=== PATIENT | female | born 1935 | race Caucasian/White ===

== ENCOUNTER 2020-04-13 14:43 | Outpatient (REF) | payer MEDICARE, OTHER, SELFPAY ==
--- NOTE | 2020-04-13 14:52 | XR_ITS ---
EXAMINATION: CHEST AND LEFT RIB X-RAY CLINICAL INFORMATION: Chest pain COMPARISON: Previous chest CT most recent October 2019 and chest x-ray July 2017 TECHNIQUE: 2 view chest and 3 views of the left ribs FINDINGS: Chest: The cardiac and mediastinal contours are stable. The lungs are well inflated. The lungs are clear. There is no pleural effusion or pneumothorax. There is a lower thoracic vertebral body compression fracture, probably the T12 vertebral body. This is new in the interval from previous exams. There are degenerative changes of the spine. Left RIBS: No rib fracture or bone lesion is seen. XR/XR chest 2V IMPRESSION: No evidence for acute disease in the chest. No rib fracture seen. T12 vertebral body compression fracture new in the interval from previous exams.
--- NOTE | 2020-04-13 14:52 | XR_ITS ---
EXAMINATION: CHEST AND LEFT RIB X-RAY CLINICAL INFORMATION: Chest pain COMPARISON: Previous chest CT most recent October 2019 and chest x-ray July 2017 TECHNIQUE: 2 view chest and 3 views of the left ribs FINDINGS: Chest: The cardiac and mediastinal contours are stable. The lungs are well inflated. The lungs are clear. There is no pleural effusion or pneumothorax. There is a lower thoracic vertebral body compression fracture, probably the T12 vertebral body. This is new in the interval from previous exams. There are degenerative changes of the spine. Left RIBS: No rib fracture or bone lesion is seen. XR/XR ribs LT min 3V w CXR1V IMPRESSION: No evidence for acute disease in the chest. No rib fracture seen. T12 vertebral body compression fracture new in the interval from previous exams.
== END 2020-04-13 14:44 | disposition home or self-care (01) ==
LOC: HO.HMGCX 14:43
PROVIDERS: PCP Internal Medicine; Visit Provider Nurse Practitioner Family
DX: R07.89 Other chest pain (principal)
CPT/HCPCS: 71045; 71046; 71101

== ENCOUNTER 2020-04-20 10:28 | Outpatient (REF) | payer MEDICARE, OTHER, SELFPAY ==
--- NOTE | 2020-04-20 | MM_ITS ---
EXAMINATION: MM SCREENING DIGITAL BREAST TOMOSYNTHESIS, BILATERAL CLINICAL INFORMATION: Screening. Asymptomatic. The lifetime risk of breast cancer based on the Tyrer-Cuzick Model is 1%. COMPARISON: Mammography: 04/15/2019, 04/09/2018, 02/10/2017 TECHNIQUE: Digital breast tomosynthesis is performed in both the craniocaudal and mediolateral oblique views along with computer-aided detection (CAD). Synthesized 2D images are generated from the tomosynthesis. Additional right MLO view is provided. FINDINGS: There are scattered areas of fibroglandular density (ACR BI-RADS breast composition Category b). There are no significant masses, abnormal calcifications, or other abnormalities. Parenchymal pattern is similar to prior studies. The fine dermal calcifications or artifact noted previously posterior 3:00 left breast are not appreciated on current study. MM/MM tomosynthesis screening BI IMPRESSION: No mammographic evidence of malignancy. ASSESSMENT: BI-RADS 1: Negative RECOMMENDATION: Routine annual mammography screening. This patient's information was entered into a reminder system with a target due date for their next mammogram.
== END 2020-04-20 10:29 | disposition home or self-care (01) ==
LOC: HO.MAMMO 10:28
PROVIDERS: PCP Internal Medicine; Visit Provider Internal Medicine
DX: Z12.31 Encounter for screening mammogram for malignant neoplasm of breast (principal)
CPT/HCPCS: 77063; 77067

== ENCOUNTER 2020-10-18 16:07 | Outpatient (REF) | payer MEDICARE, OTHER, SELFPAY ==
[2020-10-18 17:54] LABS: Erythrocyte Sedimentation Rate 18 MM/HR (0-20)
== END 2020-10-18 16:08 | disposition home or self-care (01) ==
LOC: HO.LAB 16:07
PROVIDERS: PCP Internal Medicine; Visit Provider Podiatrist
DX: M10.071 Idiopathic gout, right ankle and foot (principal)
CPT/HCPCS: 36415; 84550; 85652; 86140

== ENCOUNTER → 2020-11-02 10:34 | Outpatient (BNVA) | payer MEDICARE, OTHER, SELFPAY | PROVIDERS: PCP Internal Medicine; Visit Provider Internal Medicine | DX: T78.40XA Allergy, unspecified, initial encounter (principal); J44.9 Chronic obstructive pulmonary disease, unspecified | CPT/HCPCS: 99212 ==

== ENCOUNTER 2020-11-11 08:07 | Outpatient (REF) | payer MEDICARE, OTHER, SELFPAY ==
[2020-11-11 11:16] LABS: MANUAL DIFF FLAG NO
[2020-11-11 11:22] LABS: Basophils Absolute Auto 0.1 X10*3/uL (0.0-0.2); Basophils Percent Auto 0.6 % (0-2); Eosinophils Absolute Auto 0.4 X10*3/uL (0.0-0.4); Eosinophils Percent Auto 4.5 % (0-4); Hematocrit 35.6 % (37-47); Hemoglobin 11.8 g/dl (12.0-16.0); Imm Gran Abs Auto 0.03 X10*3/uL (0.00-0.03); Imm Gran Pct Auto 0.4 % (0.0-0.4); Lymphocytes Absolute Auto 1.5 X10*3/uL (1.2-4.9); Lymphocytes Percent Auto 17.6 % (20-40); Mean Corpuscular HGB Conc 33.1 g/dl (31.0-35.0); Mean Corpuscular Hemoglobin 31.8 pg (27.0-33.0); Mean Platelet Volume 10.9 fL (9.4-12.3); Monocytes Absolute Auto 0.6 X10*3/uL (0.1-1.2); Monocytes Percent Auto 6.8 % (2-11); Neutrophils Absolute Auto 5.8 X10*3/uL (2.0-8.3); Neutrophils Percent Auto 70.1 % (45-73); Platelet Count 215 X10*3/uL (160-400); Red Blood Count 3.71 X10*6/uL (4.20-5.50); Red Cell Distribution Width 13.8 % (11.0-16.0); White Blood Count 8.2 X10*3/uL (4.8-10.8)
[2020-11-11 11:52] LABS: Alanine Aminotransferase 12 U/L (0-31); Albumin Level 3.8 g/dL (3.5-5.0); Alkaline Phosphatase 83 U/L (39-117); Anion Gap 13 (12-20); Aspartate Amino Transferase 21 U/L (5-31); Bilirubin Total 0.5 mg/dL (0.0-1.0); Blood Urea Nitrogen 20 mg/dL (9-16); Calcium 9.2 mg/dL (8.4-10.2); Carbon Dioxide 26 mmol/L (22-29); Chloride 108 mmol/L (96-108); Cholesterol 197 mg/dL; Estimated Glomerular Filt Rate > 60; Glucose Fasting 101 mg/dL (60-99); HDL Cholesterol 65 mg/dL; LDL Cholesterol Calculated 119 mg/dl; Potassium 4.5 mmol/L (3.3-5.1); Sodium 142 mmol/L (135-145); Total Protein 6.6 g/dL (6.5-8.0); Triglycerides 66 mg/dL
[2020-11-11 12:02] LABS: Vitamin D 25-OH Total 34.8 ng/mL (>30)
== END 2020-11-11 08:08 | disposition home or self-care (01) ==
LOC: HO.HMGCLDS 08:07
PROVIDERS: PCP Internal Medicine; Visit Provider Internal Medicine
DX: J44.9 Chronic obstructive pulmonary disease, unspecified (principal); I25.10 Atherosclerotic heart disease of native coronary artery without angina pectoris; K21.9 Gastro-esophageal reflux disease without esophagitis
CPT/HCPCS: 36415; 80053; 80061; 82306; 84443; 85025

== ENCOUNTER 2020-12-24 16:45 | Outpatient (REF) | payer MEDICARE, OTHER, SELFPAY ==
[2020-12-24 18:08] LABS: Uric Acid 3.3 mg/dL (2.4-5.7)
[2020-12-24 18:30] LABS: Erythrocyte Sedimentation Rate 11 MM/HR (0-20)
== END 2020-12-24 16:46 | disposition home or self-care (01) ==
LOC: HO.LAB 16:45
PROVIDERS: Visit Provider Podiatrist
DX: M10.071 Idiopathic gout, right ankle and foot (principal)
CPT/HCPCS: 36415; 84550; 85652; 86140

== ENCOUNTER → 2021-02-09 11:22 | Outpatient (BNVA) | payer MEDICARE, OTHER, SELFPAY | PROVIDERS: PCP Internal Medicine; Visit Provider Internal Medicine | DX: J44.9 Chronic obstructive pulmonary disease, unspecified (principal); J30.9 Allergic rhinitis, unspecified | CPT/HCPCS: 99212 ==

== ENCOUNTER 2021-04-28 12:38 | Outpatient (REF) | payer MEDICARE, OTHER, SELFPAY ==
--- NOTE | ~2021-04-28 | MM_ITS ---
EXAMINATION: MM SCREENING DIGITAL BREAST TOMOSYNTHESIS, BILATERAL CLINICAL INFORMATION: Screening. Asymptomatic. The lifetime risk of breast cancer to age 85 based on the Tyrer-Cuzick Model is under 1%. COMPARISON: Mammography: 04/20/2020, 04/15/2019, 04/09/2018 TECHNIQUE: Digital breast tomosynthesis is performed in both the craniocaudal and mediolateral oblique views along with computer-aided detection (CAD). Synthesized 2D images are generated from the tomosynthesis. FINDINGS: There are scattered areas of fibroglandular density (ACR BI-RADS breast composition Category b). There are no significant masses, abnormal calcifications, or other abnormalities. Recommend pattern is similar to prior studies. No significant changes. MM/MM tomosynthesis screening BI IMPRESSION: No mammographic evidence of malignancy. ASSESSMENT: BI-RADS 1: Negative RECOMMENDATION: Routine annual mammography screening. This patient's information was entered into a reminder system with a target due date for their next mammogram.
== END 2021-04-28 12:39 | disposition home or self-care (01) ==
LOC: HO.MAMMO 12:38
PROVIDERS: PCP Internal Medicine; Visit Provider Internal Medicine
DX: Z12.31 Encounter for screening mammogram for malignant neoplasm of breast (principal)
CPT/HCPCS: 77063; 77067

== ENCOUNTER 2021-08-09 13:28 | Outpatient (REF) | payer MEDICARE, OTHER, SELFPAY ==
--- NOTE | ~2021-08-09 | XR_ITS ---
EXAMINATION: XR STERNUM CLINICAL INFORMATION: Closed fracture of body of sternum with routine healing COMPARISON: Previous chest CT October 2019 and chest and left rib x-rays April 2020 TECHNIQUE: 2 views of the sternum were obtained. FINDINGS: There is a minimally displaced fracture of the sternum. The distal sternum is displaced anteriorly by 5 mm with respect to the more proximal sternum. New from previous exams. Overlying soft tissues are normal. XR/XR sternum min 2V IMPRESSION: Minimally displaced fracture of the proximal sternum.
== END 2021-08-09 13:29 | disposition home or self-care (01) ==
LOC: HO.HMGCX 13:28
PROVIDERS: Visit Provider Internal Medicine
DX: S22.22XD Fracture of body of sternum, subsequent encounter for fracture with routine healing (principal)
CPT/HCPCS: 71120

== ENCOUNTER → 2021-08-11 11:06 | Outpatient (BNVA) | payer MEDICARE, OTHER, SELFPAY | PROVIDERS: PCP Internal Medicine; Visit Provider Internal Medicine | DX: J44.9 Chronic obstructive pulmonary disease, unspecified (principal); J30.9 Allergic rhinitis, unspecified; S22.20XA Unspecified fracture of sternum, initial encounter for closed fracture | CPT/HCPCS: 99212 ==

== ENCOUNTER 2021-09-28 12:22 | Outpatient (REF) | payer MEDICARE, OTHER, SELFPAY ==
[2021-09-28 13:58] LABS: Anion Gap 13 (12-20); Blood Urea Nitrogen 14 mg/dL (9-16); Calcium 9.7 mg/dL (8.4-10.2); Carbon Dioxide 27 mmol/L (22-29); Chloride 101 mmol/L (96-108); Estimated Glomerular Filt Rate > 60; Glucose Random 95 mg/dL (60-115); Potassium 4.5 mmol/L (3.3-5.1); Sodium 136 mmol/L (135-145)
[2021-09-28 14:23] LABS: Thyroid Stimulating Hormone 2.93 uIU/mL (0.32-4.0)
[2021-09-28 14:28] LABS: Folate > 20.0 ng/mL (> or = 4.0); Vitamin B12 439 pg/mL (200-900)
== END 2021-09-28 12:23 | disposition home or self-care (01) ==
LOC: HO.LAB 12:22
PROVIDERS: PCP Internal Medicine; Visit Provider Psychiatry & Neurology Neurology
DX: G31.84 Mild cognitive impairment of uncertain or unknown etiology (principal)
CPT/HCPCS: 36415; 80048; 82607; 82746; 84443

== ENCOUNTER 2021-10-03 13:38 | Emergency (ER) | payer MEDICARE, OTHER, SELFPAY ==
[2021-10-03 14:19] VITALS: BP 129/64; PULSE 85; RESP 16; TEMP 36.3; O2SAT 96; BMI 23.9
[2021-10-03 14:45] LABS: Basophils Absolute Auto 0.1 X10*3/uL (0.0-0.2); Basophils Percent Auto 0.7 % (0-2); Eosinophils Absolute Auto 0.2 X10*3/uL (0.0-0.4); Eosinophils Percent Auto 2.1 % (0-4); Hematocrit 34.3 % (37.0-47.0); Hemoglobin 11.4 g/dl (12.0-16.0); Imm Gran Abs Auto 0.06 X10*3/uL (0.00-0.03); Imm Gran Pct Auto 0.6 % (0.0-0.4); Lymphocytes Absolute Auto 1.9 X10*3/uL (1.2-4.9); Lymphocytes Percent Auto 17.8 % (20-40); MANUAL DIFF FLAG NO; Mean Corpuscular HGB Conc 33.2 g/dl (31.0-35.0); Mean Corpuscular Hemoglobin 31.4 pg (27.0-33.0); Mean Corpuscular Volume 94.5 fL (80.0-98.0); Mean Platelet Volume 9.9 fL (9.4-12.3); Monocytes Absolute Auto 0.6 X10*3/uL (0.1-1.2); Monocytes Percent Auto 5.5 % (2-11); Neutrophils Absolute Auto 7.8 x10*3/uL (2.0-8.3); Neutrophils Percent Auto 73.3 % (45-73); Platelet Count 221 X10*3/uL (160-400); Red Blood Count 3.63 X10*6/uL (4.20-5.50); Red Cell Distribution Width 13.2 % (11.0-16.0); White Blood Count 10.7 X10*3/uL (4.8-10.8)
[2021-10-03 15:08] LABS: Anion Gap 14 (12-20); Blood Urea Nitrogen 20 mg/dL (9-16); Calcium 9.3 mg/dL (8.4-10.2); Carbon Dioxide 24 mmol/L (22-29); Chloride 104 mmol/L (96-108); Creatinine Clr Calc Pharmacy 44.1; Estimated Glomerular Filt Rate > 60; Glucose Random 154 mg/dL (60-115); Potassium 3.7 mmol/L (3.3-5.1); Sodium 138 mmol/L (135-145)
[2021-10-03 15:09] LABS: Appearance Urine CLEAR; Color Urine YELLOW; Glucose Urine UA NEG (NEG); Leukocyte Esterase Urine 2+ (NEG); Nitrite Urine NEG (NEG); PH 5.5 (5.0-8.0); UACC Culture Trigger YES; Urine Blood 2+ (NEG); Urine Ketones 5 MG/DL (NEG); Urine Protein NEG (NEG-TRACE)
[2021-10-03 15:17] LABS: Bacteria Urine 1+ /LPF; Squamous Epithelial Cell Urine 1+ /LPF
--- NOTE | 2021-10-03 17:09 | ED_ITS ---
HPI - Female Genitourinary General Chief complaint: Urogenital-Female Stated complaint: confusion/UTI Time Seen by Provider: 10/03/21 15:40 History of Present Illness HPI Narrative: Patient is 87 year old female presents today with having pain on urination. Patient from home. Patient had frequency. No abdominal pain. No nausea no vomiting. Family noted patient to be slightly off. There is no coughing or congestion or upper respiratory symptoms. No diaphoresis. Patient ambulates without any difficulties. Otherwise compliant with medication has been on multiple antibiotics for 2 for infection. No recent urinary tract infections. Patient from home. Related Data Home Medications Medication Instructions Recorded Confirmed albuterol sulfate 90 mcg/actuation 2 puff PO Q6H PRN 04/13/20 10/16/20 aerosol inhaler cetirizine 10 mg tablet 10 mg PO DAILY 04/13/20 10/16/20 flu vacc 2020-(65yr ml IM 04/13/20 10/16/20 up)-MF59C(PF) 60 mcg(15 mcgx4)/0.5 mL IM syringe fluticasone propionate 50 1 spray INTRANASAL DAILY 04/13/20 10/16/20 mcg/actuation nasal spray,suspension memantine 10 mg tablet 10 mg PO BID 04/13/20 10/16/20 omeprazole 20 mg capsule,delayed 20 mg PO QAM 04/13/20 10/16/20 release propranolol 10 mg tablet 10 mg PO BID 04/13/20 10/16/20 raloxifene 60 mg tablet 60 mg PO DAILY 04/13/20 10/16/20 sertraline 100 mg tablet 100 mg PO DAILY tab 11/02/20 colchicine 0.6 mg tablet 0.6 mg PO DAILY PRN tab 02/09/21 Previous Rx's Medication Instructions Recorded acetaminophen 500 mg capsule 500 mg PO QID PRN #30 cap 04/13/20 hydroxyzine HCl 25 mg tablet 25 mg PO BID PRN #14 tab 03/04/21 sulfamethoxazole 800 1 tab PO BID 7 Days #14 tab 10/03/21 mg-trimethoprim 160 mg tablet (Bactrim DS) Allergies Allergy/AdvReac Type Severity Reaction Status Date / Time iodine [Iodine] Allergy Mild SWELLING Verified 08/11/21 11:17 WITH CONTRAST DYE IV contrast dye Allergy Severe throat Uncoded 08/11/21 11:17 closed up codeine Allergy Unknown stomach Uncoded 08/11/21 11:17 upset Review of Systems Review of Systems: No fever no chills no diaphoresis Yes all other systems are reviewed and are negative [facility] Past Medical History Attestation statement: The following information was validated with the patient. Medical History Allergic Allergic rhinitis COPD (chronic obstructive pulmonary disease) Sternal fracture Social History Social History Patient Tobacco Use Status: Never used Tobacco Advance Directives: No Advance Directives Information Provided: No Physical Exam Vital Signs: Vital Signs: Last Vital Signs Temp 97.4 F 10/03/21 14:19 Pulse 85 10/03/21 14:19 Resp 16 10/03/21 14:19 BP 129/64 10/03/21 14:19 Pulse Ox 96 10/03/21 14:19 BMI result Body Mass Index 23.9 Appearance: Alert. Oriented X3. No acute distress. Eyes: Pupils equal, round and reactive to light. ENT: Pharynx normal. Neck: Normal inspection. Neck supple. No lymph nodes noted. No crepitus CVS: Normal heart rate and rhythm. Pulses normal. Normal S1 and S2 Respiratory: No respiratory distress. Breath sounds normal. No Wheezing. No rales Abdomen: Soft and nontender. No rigidity. No distention. good BS x4 Skin: Skin warm and dry. Normal skin color. Normal skin turgor. Extremities: No lower extremity edema. Neurovascular intact to all extremities. No Lacerations. No Rash Neuro: Oriented X 3. No motor deficit. No sensory deficit. Moving all ex termities. No slurred speech MDM - Female Genitourinary MDM Narrative Medical decision making narrative: Patient well appearing no acute distress awake alert oriented x3. White count was normal. Urine grossly infected. Will start patient on Bactrim. Close follow-up on an outpatient basis. Bladder scan less than 100 cc no evidence for retention. Lab Data Result diagrams: 10/03/21 14:38 10/03/21 14:38 Labs: Lab Results 10/03/21 10/03/21 10/03/21 Range/Units 14:38 14:38 15:02 WBC 10.7 (4.8-10.8) X10*3/uL RBC 3.63 L (4.20-5.50) X10*6/uL Hgb 11.4 L (12.0-16.0) g/dl Hct 34.3 L (37.0-47.0) % MCV 94.5 (80.0-98.0) fL MCH 31.4 (27.0-33.0) pg MCHC 33.2 (31.0-35.0) g/dl RDW 13.2 (11.0-16.0) % Plt Count 221 (160-400) X10*3/uL MPV 9.9 (9.4-12.3) fL Immature Gran % (Auto) 0.6 H (0.0-0.4) % Neut % (Auto) 73.3 H (45-73) % Lymph % (Auto) 17.8 L (20-40) % Colbert % (Auto) 5.5 (2-11) % Eos % (Auto) 2.1 (0-4) % Baso % (Auto) 0.7 (0-2) % Lymph # (Auto) 1.9 (1.2-4.9) X10*3/uL Colbert # (Auto) 0.6 (0.1-1.2) X10*3/uL Eos # (Auto) 0.2 (0.0-0.4) X10*3/uL Baso # (Auto) 0.1 (0.0-0.2) X10*3/uL Abs Immat Gran (auto) 0.06 H (0.00-0.03) X10*3/uL Absolute Neuts (auto) 7.8 (2.0-8.3) x10*3/uL Absolute Nucleated RBC 0.000 (0.0-0.012) X10*3/uL Nucleated RBC % (auto) 0.0 (0.0-0.2) /100WBC Sodium 138 (135-145) mmol/L Potassium 3.7 (3.3-5.1) mmol/L Chloride 104 (96-108) mmol/L Carbon Dioxide 24 (22-29) mmol/L Anion Gap 14 (12-20) BUN 20 H (9-16) mg/dL Creatinine 0.77 (0.5-1.4) mg/dL Estim Creat Clear Calc 44.1 Estimated GFR > 60 Random Glucose 154 H (60-115) mg/dL Calcium 9.3 (8.4-10.2) mg/dL Urine Color YELLOW Urine Appearance CLEAR Urine pH 5.5 (5.0-8.0) Ur Specific [place] 1.020 (1.005-1.025) Urine Protein NEG (NEG-TRACE) MG/DL Urine Glucose (UA) NEG (NEG) MG/DL Urine Ketones 5 (NEG) MG/DL Urine Blood 2+ H (NEG) Urine Nitrite NEG (NEG) Ur Leukocyte Esterase 2+ H (NEG) Urine RBC 5-9 H (0) /HPF Urine WBC 15-29 H (0-4) /HPF Ur Squamous Epith Cells 1+ /LPF Urine Bacteria 1+ /LPF Discharge Plan Discharge Clinical Impression: Urinary tract infection Patient Disposition: Home, Self-Care Instructions: Urinary Tract Infection in Older Adults (ED) Prescriptions: New sulfamethoxazole-trimethoprim [Bactrim DS] 800-160 mg tablet 1 tab PO BID 7 Days Qty: 14 0RF No Action fluticasone propionate 50 mcg/actuation spray,suspension 1 spray intranasal DAILY 0RF raloxifene 60 mg tablet 60 mg PO DAILY 0RF cetirizine 10 mg tablet 10 mg PO DAILY 0RF propranolol 10 mg tablet 10 mg PO BID 0RF omeprazole 20 mg capsule,delayed release(DR/EC) 20 mg PO QAM 0RF Fluad Quad 2020-21(65y up)(PF) 60 mcg (15 mcg x 4)/0.5 mL syringe IM 0RF albuterol sulfate 90 mcg/actuation HFA aerosol inhaler 2 puff PO Q6H PRN0RF memantine 10 mg tablet 10 mg PO BID 0RF acetaminophen 500 mg capsule 500 mg PO QID PRN (Reason: pain) Qty: 30 0RF sertraline 100 mg tablet 100 mg PO DAILY 0RF hydroxyzine HCl 25 mg tablet 25 mg PO BID PRN (Reason: itching) Qty: 14 0RF colchicine 0.6 mg tablet 0.6 mg PO DAILY PRN0RF Referrals: Latrell Alvarez MD, DO [Primary Care Provider] -
--- NOTE | 2021-10-03 17:14 | PC.NURSE ---
bladder scan completed. plan to dc home. pt is aox answering questions appropriately
== END 2021-10-03 17:38 | disposition home or self-care (01) ==
PROVIDERS: Emergency Provider Emergency Medicine Emergency Medical Services; PCP Internal Medicine
DX: R30.0 Dysuria (principal); N39.0 Urinary tract infection, site not specified; Z79.899 Other long term (current) drug therapy
CPT/HCPCS: 36415; 80048; 81001; 85025; 87086; 87088; 87186; 99283; 99284

== ENCOUNTER 2021-10-19 10:45 | Outpatient (REF) | payer MEDICARE, OTHER, SELFPAY ==
--- NOTE | ~2021-10-19 | CT_ITS ---
EXAMINATION: CT HEAD WITHOUT CONTRAST CLINICAL INFORMATION: Mild cognitive impairment COMPARISON: Previous brain MRI June 2012 TECHNIQUE: Contiguous axial imaging was performed from the skull base to vertex without intravenous administration of contrast. This CT examination was performed using dose optimization techniques as appropriate, variously including the following: *Automated exposure control *Adjustment of mA and/or kV according to patient size (this includes techniques or standardized protocols for targeted exams where dose is matched to indication/reason for exam; i.e. extremities or head) *Use of iterative reconstruction technique DLP: 673 mGy-cm FINDINGS: There is no evidence of an extra-axial collection. There is no evidence of intra-axial or extra-axial hemorrhage. There is a 1 cm calcified or ossified extra-axial lesion adjacent to the right frontal lobe suggestive of a meningioma. This is stable from previous exam. No other mass or mass effect is seen. The ventricles and extra-axial CSF spaces are slightly prominent suggestive of mild generalized atrophy. There is nonspecific periventricular white matter disease. This appears increased from previous brain MRI from 2013. Bony structures are unremarkable. Visualized paranasal sinuses, mastoid air cells and middle ears are clear. CT/CT head/brain wo con IMPRESSION: Generalized atrophy and nonspecific periventricular white matter disease. When matter disease appears increased from 2013 exam. Stable 1 cm mineralized extra-axial lesion adjacent to the right frontal lobe probably representing a meningioma.
== END 2021-10-19 10:46 | disposition home or self-care (01) ==
LOC: HO.CT 10:45
PROVIDERS: PCP Internal Medicine; Visit Provider Psychiatry & Neurology Neurology
DX: G31.84 Mild cognitive impairment of uncertain or unknown etiology (principal)
CPT/HCPCS: 70450

== ENCOUNTER 2021-11-05 12:58 | Outpatient (REF) | payer MEDICARE, OTHER, SELFPAY ==
[2021-11-05 15:33] LABS: MANUAL DIFF FLAG NO
[2021-11-05 15:36] LABS: Appearance Urine CLEAR; Basophils Absolute Auto 0.1 X10*3/uL (0.0-0.2); Basophils Percent Auto 0.7 % (0-2); Color Urine ORANGE; Eosinophils Absolute Auto 0.3 X10*3/uL (0.0-0.4); Eosinophils Percent Auto 2.7 % (0-4); Glucose Urine UA NEG (NEG); Hematocrit 34.3 % (37.0-47.0); Hemoglobin 11.2 g/dl (12.0-16.0); Imm Gran Abs Auto 0.04 X10*3/uL (0.00-0.03); Imm Gran Pct Auto 0.4 % (0.0-0.4); Leukocyte Esterase Urine TRACE (NEG); Lymphocytes Absolute Auto 2.2 X10*3/uL (1.2-4.9); Lymphocytes Percent Auto 21.8 % (20-40); Mean Corpuscular HGB Conc 32.7 g/dl (31.0-35.0); Mean Corpuscular Hemoglobin 32.2 pg (27.0-33.0); Mean Corpuscular Volume 98.6 fL (80.0-98.0); Mean Platelet Volume 11.2 fL (9.4-12.3); Monocytes Absolute Auto 0.7 X10*3/uL (0.1-1.2); Monocytes Percent Auto 6.9 % (2-11); Neutrophils Absolute Auto 6.7 x10*3/uL (2.0-8.3); Neutrophils Percent Auto 67.5 % (45-73); Nitrite Urine POS (NEG); Platelet Count 255 X10*3/uL (160-400); Red Blood Count 3.48 X10*6/uL (4.20-5.50); Red Cell Distribution Width 13.4 % (11.0-16.0); Specific Gravity - Urine 1.015 (1.005-1.025); Urine Blood TRACE (NEG); Urine Ketones NEG (NEG); Urine Protein NEG (NEG-TRACE); White Blood Count 9.9 X10*3/uL (4.8-10.8)
[2021-11-05 15:46] LABS: Alanine Aminotransferase 13 U/L (0-31); Albumin Level 3.8 g/dL (3.5-5.0); Alkaline Phosphatase 69 U/L (39-117); Anion Gap 11 (12-20); Aspartate Amino Transferase 18 U/L (5-31); Bilirubin Total 0.3 mg/dL (0.0-1.0); Blood Urea Nitrogen 20 mg/dL (9-16); C Reactive Protein 0.18 mg/dL (< or = 0.50); Calcium 9.1 mg/dL (8.4-10.2); Carbon Dioxide 26 mmol/L (22-29); Chloride 103 mmol/L (96-108); Estimated Glomerular Filt Rate > 60; Glucose Random 149 mg/dL (60-115); Sodium 136 mmol/L (135-145); Total Protein 6.5 g/dL (6.5-8.0)
[2021-11-05 15:47] LABS: Bacteria Urine TRACE /LPF; Mucus Urine TRACE /LPF; Squamous Epithelial Cell Urine 1+ /LPF
[2021-11-05 16:14] LABS: Erythrocyte Sedimentation Rate 8 MM/HR (0-20)
== END 2021-11-05 12:59 | disposition home or self-care (01) ==
LOC: HO.HMGCLDS 12:58
PROVIDERS: Visit Provider Internal Medicine
DX: K04.7 Periapical abscess without sinus (principal)
CPT/HCPCS: 36415; 80053; 81001; 85025; 85652; 86140

== ENCOUNTER 2021-11-18 12:32 | Outpatient (REF) | payer MEDICARE, OTHER, SELFPAY ==
--- NOTE | ~2021-11-18 | XR_ITS ---
EXAMINATION: XR CHEST CLINICAL INFORMATION: Shortness of breath, asthma. COMPARISON: 04/13/[address] scan of 10/10/2019. TECHNIQUE: 2 views of the chest were obtained. FINDINGS: There is no evidence of acute parenchymal disease, pneumothorax, or pleural effusion. Heart normal size. No evidence of pulmonary edema. There is a stable approximately 50% compression fracture of what appears to be the T12 or L1 vertebral body. This was present on previous chest x-ray of 04/13/2020 but was not seen on CT scan of 10/10/2019. There is calcific tendinitis of the right shoulder. XR/XR chest 2V IMPRESSION: No acute disease.
== END 2021-11-18 12:33 | disposition home or self-care (01) ==
LOC: HO.HMGCX 12:32
PROVIDERS: PCP Internal Medicine; Visit Provider Internal Medicine
DX: J45.30 Mild persistent asthma, uncomplicated (principal)
CPT/HCPCS: 71046

== ENCOUNTER 2021-12-15 14:52 | Outpatient (REF) | payer MEDICARE, OTHER, SELFPAY ==
--- NOTE | 2021-12-15 | PFT_ITS ---
INDICATION: Shortness of breath and asthma. SPIROMETRY: The FEV1 to FVC 81% with an FEV1 of 1.27 L which is 76% predicted, an FVC of 1.57 L which is 70% predicted. No significant response to bronchodilators noted. Maximum voluntary ventilation 48% predicted. LUNG VOLUMES: Total lung capacity 77% predicted. DIFFUSION CAPACITY: DLCO 45% predicted. COMPARISONS: PFTs in 2019. INTERPRETATION: No obstructive ventilatory defect. No significant response to bronchodilators noted. The patient does have a moderate decrease in the maximum voluntary ventilation secondary to likely deconditioning, although cannot rule out neuromuscular conditions. The patient does have a restrictive ventilatory defect, consistent with mild restrictive lung disease. In addition to that, there is a [id number] diffusion impairment, which could be secondary to underlying parenchymal lung disease and/or pulmonary vascular conditions. Should also correct for hemoglobin. When compared to 2019, there is a significant decrease in the FVC. No significant change in the FEV1, significant decrease in the total lung capacity, and a significant decrease in the diffusion capacity. Clinical correlation is warranted. MD MY Gonzales/MODL / [id number]
== END 2021-12-15 14:53 | disposition home or self-care (01) ==
LOC: HO.RESP 14:52
PROVIDERS: PCP Internal Medicine; Visit Provider Internal Medicine
DX: R06.02 Shortness of breath (principal); J45.30 Mild persistent asthma, uncomplicated
CPT/HCPCS: 94060; 94727; 94729

== ENCOUNTER → 2022-02-09 11:05 | Outpatient (BNVA) | payer MEDICARE, OTHER, SELFPAY | PROVIDERS: PCP Internal Medicine; Visit Provider Internal Medicine | DX: J44.9 Chronic obstructive pulmonary disease, unspecified (principal); J30.9 Allergic rhinitis, unspecified; R06.09 Other forms of dyspnea; S22.20XD Unspecified fracture of sternum, subsequent encounter for fracture with routine healing | CPT/HCPCS: 99212 ==

== ENCOUNTER → 2022-07-31 10:19 | Outpatient (BNVA) | payer MEDICARE, OTHER, SELFPAY | PROVIDERS: PCP Internal Medicine; Visit Provider Internal Medicine | DX: J44.9 Chronic obstructive pulmonary disease, unspecified (principal); J30.9 Allergic rhinitis, unspecified; R06.09 Other forms of dyspnea | CPT/HCPCS: 99212 ==

== ENCOUNTER 2022-08-25 14:18 | Outpatient (REF) | payer MEDICARE, OTHER, SELFPAY ==
--- NOTE | ~2022-08-25 | MM_ITS ---
EXAMINATION: MM SCREENING DIGITAL BREAST TOMOSYNTHESIS, BILATERAL CLINICAL INFORMATION: Screening. Asymptomatic. COMPARISON: Mammography: 04/28/2021, 04/20/2020, 04/15/2019, 04/09/2018 TECHNIQUE: Digital breast tomosynthesis is performed in both the craniocaudal and mediolateral oblique views along with computer-aided detection (CAD). Synthesized 2D images are generated from the tomosynthesis. Additional left CC view is provided. FINDINGS: There are scattered areas of fibroglandular density (ACR BI-RADS breast composition Category b). There are no significant masses, abnormal calcifications, or other abnormalities. Small smooth nodular asymmetry central left breast on CC view similar to prior exams. No developing density. No architectural abnormality. The axilla are unremarkable. MM/MM tomosynthesis screening BI IMPRESSION: No mammographic evidence of malignancy. ASSESSMENT: BI-RADS 2: Benign RECOMMENDATION: Routine annual mammography screening. This patient's information was entered into a reminder system with a target due date for their next mammogram.
== END 2022-08-25 14:19 | disposition home or self-care (01) ==
LOC: HO.MAMMO 14:18
PROVIDERS: PCP Internal Medicine; Visit Provider Internal Medicine
DX: Z12.31 Encounter for screening mammogram for malignant neoplasm of breast (principal)
CPT/HCPCS: 77063; 77067

== ENCOUNTER 2022-11-11 07:48 | Outpatient (REF) | payer MEDICARE, OTHER, SELFPAY | END 2022-11-11 07:49 | disposition home or self-care (01) | LOC: HO.LAB 07:48 | PROVIDERS: PCP Internal Medicine; Visit Provider Internal Medicine | DX: G31.84 Mild cognitive impairment of uncertain or unknown etiology (principal); J45.30 Mild persistent asthma, uncomplicated; F33.42 Major depressive disorder, recurrent, in full remission; K21.9 Gastro-esophageal reflux disease without esophagitis; I25.10 Atherosclerotic heart disease of native coronary artery without angina pectoris; L98.9 Disorder of the skin and subcutaneous tissue, unspecified | CPT/HCPCS: 36415; 80061; 84443; 85025 ==

== ENCOUNTER 2023-01-30 10:15 | Outpatient (AMB) | payer MEDICARE, OTHER, SELFPAY ==
[2023-01-30 10:16] VITALS: BP 110/62; PULSE 78; O2SAT 96; BMI 23.9
--- NOTE | 2023-01-30 10:16 | MHC.OFFVIS ---
Intake Vital Signs 01/30/23 10:16 Height 5 ft 3 in Weight 135 lb BMI 23.9 BP 110/62 Blood Pressure Location Lt brachial Position Sitting Pulse 78 Pulse Oximetry (%) 96 Oxygen Delivery Method Room Air Intake Visit Reasons: copd Intake Note: pt is here for follow up and states issue with breathing when walking and needing inhaler lately, and feels very off balance lately. State Assessed Properties Director Required: No Allergies iodine [Iodine] Allergy (Mild, Verified 01/30/23 10:23) SWELLING WITH CONTRAST DYE IV contrast dye Allergy (Severe, Uncoded 01/30/23 10:23) throat closed up codeine Allergy (Unknown, Uncoded 01/30/23 10:23) stomach upset Medication List - Last Reconciled 01/30/23 by Fabian Sanabria MD acetaminophen 500 mg PO QID PRN albuterol sulfate 90 mcg/actuation 2 puffs PO Q6H PRN cetirizine 10 mg PO DAILY colchicine (gout) 0.6 mg PO DAILY PRN flu vac 2020 [id number](PF) 60 mcg (15 mcg x 4)/0.5 mL mL IM fluticasone propion-salmeterol 100-50 mcg/dose (Advair Diskus) 1 inh inhalation Q12H fluticasone propionate 50 mcg/actuation 1 spray intranasal DAILY hydroxyzine HCl 25 mg PO BID PRN memantine 10 mg PO BID omeprazole 20 mg PO QAM propranolol 10 mg PO BID raloxifene 60 mg PO DAILY sertraline 100 mg PO DAILY Do you need a note to return to daycare/school/sports/work: No HPI copd HPI Details THIS IS VERY PLEASANT 87 YEARS OLD FEMALE, COMES FOR 6 MONTHS FOLLOW-UP FOR HER MILD COPD AND ALLERGIC RHINITIS. SHE HAS BEEN VERY STABLE WITHOUT ANY ACUTE INFECTION OR EXACERBATION IN THE LAST 6 MONTHS, MAIN COMPLAINT IS THAT SHE TENDS TO LOSE BALANCE SO HAS TO HOLD ON TO A WALKING STICK. SHE DOES GET SHORT OF BREATH WHEN SHE WALKS AROUND BUT HER O2 SATS HAVE REMAINED IN NORMAL RANGE. NASAL. SYMPTOMS ARE ALSO WELL CONTROLLED [facility] Medical History Dyspnea on exertion Sternal fracture Allergic rhinitis COPD (chronic obstructive pulmonary disease) Allergic Social History Patient Tobacco Use Status: Never used Tobacco Review of Systems Const All systems reviewed & are unremarkable except as noted in HPI and below Eyes Reports no additional complaints ENT Reports nasal congestion and Reports nasal discharge (Mild off and on) Card Denies chest pain, Denies irregular heart rhythm and Denies leg edema Resp Reports as per HPI GI Reports no additional complaints Reports no additional complaints Musc Reports no additional complaints Skin/Breast Reports system reviewed and no additional complaints, except as documented Neuro Reports no additional complaints Psych Reports no additional complaints Physical Exam Vital Signs: Last Vital Signs Pulse 78 01/30/23 10:16 BP 110/62 01/30/23 10:16 Pulse Ox 96 01/30/23 10:16 Oxygen Delivery Method Room Air 01/30/23 10:16 BMI result Body Mass Index 23.9 Const General: healthy appearing, comfortable, no acute distress, alert and awake Orientation/consciousness: patient oriented x3 HEENT Head: Yes normal to inspection General nose exam: No nasal polyps present, No nasal discharge present and Other nasal findings present (Mild nasal congestion) Face and sinus: Yes sinuses nontender Mouth: oropharynx normal Throat: Yes posterior oropharynx normal Eyes General: appearance normal, both eyes and all related structures Neck Neck: Yes normal visual inspection, Yes no lymphadenopathy, Yes trachea midline and Yes no JVD Thyroid: Thyroid normal Chest Chest palpation & inspection: normal inspection of the chest, normal palpation of entire chest wall and no tenderness Resp Other: Percussion note resonant, has good breath sounds on both sides. No audible wheezes, rhonchi or crepitations Cardio Palpation: normal PMI Rate: regular rate Rhythm: regular rhythm Heart sounds: no gallops and no murmurs GI Palpation (GI): Soft to palpation, nontender, No hepatosplenomegaly present and no masses Auscultation: normal bowel sounds Back/Spine/Pelvis Thoracic/Lumbar Spine: thoracic and lumbar spine normal to inspection Skin General skin exam: no rashes or lesions noted Neuro General: patient oriented x3 and no focal motor deficits Cranial nerves: Yes CN's II-XII intact bilaterally Extrem General: Yes normal to inspection, Yes no clubbing, cyanosis or edema and Yes no calf tenderness Psych Speech and movement: Normal speech and movement present Results Reviewed Results Reviewed: WALKED IN THE HALLWAY FOR ABOUT 5 MINUTES. RESTING O2 SAT 97%, AT THE END OF THE WALK 93%. Assessment & Plan Assessment & Plan (1) COPD (chronic obstructive pulmonary disease): Comment: MILD ASTHMA/COPD, MANIFESTED MAINLY BY COUGH AND MILD OCCASIONAL WHEEZING ESPECIALLY IN A.M. HOURS. TX: CONTNUE TO USE ADVAIR 100-50 1 INHALATION UAUALLY ONCE A DAY, AND MAY GO BACK TO B.I.D. IF SYMPTOMS GET ANY WORSE. SCRIPT IS RENEWED ALBUTEROL INHALER 2 PUFFS Q 6 HOURS P.R.N.. Code(s): J44.9 - Chronic obstructive pulmonary disease, unspecified (2) Allergic: Comment: MOSTLY UNDER CONTROL. CONTINUE PRESENT MEDS ( FLONASE 1 SPRAY EACH NOSTRIL DAILY AND CETRAZINE 10 MG DAILY PRN ) Code(s): T78.40XA - Allergy, unspecified, initial encounter (3) Dyspnea on exertion: Comment: PATIENT HAS MILD TO MODERATE DYSPNEA ON EXERTION. THIS SEEMS TO BE DUE TO MILD RESTRICTIVE PULMONARY DISORDER. THERE WAS NO SIGNIFICANT HYPOXEMIA ON WALKING. Tx :ADVISED TO DO DEEP BREATHING EXERCISES 3 TIMES A DAY. SHE DOES HAVE INCENTIVE SPIROMETRY DEVICE AT HOME. Code(s): R06.09 - Other forms of dyspnea Medications: Changed From fluticasone propion-salmeterol 100-50 mcg/dose (Advair Diskus) 1 inh inhalation Q12H J44.9 - Chronic obstructive pulmonary disease, unspecified To fluticasone propion-salmeterol 100-50 mcg/dose (Advair Diskus) 1 inh inhalation Q12H 60 ea 5RF COPD 30 days J44.9 - Chronic obstructive pulmonary disease, unspecified Coding Level of Care Code Est Pt Level 3 (83412) Diagnoses COPD (chronic obstructive pulmonary disease) J44.9 Allergic T78.40XA Dyspnea on exertion R06.09
== END 2023-01-30 10:45 | disposition home or self-care (01) ==
PROVIDERS: PCP Internal Medicine; Visit Provider Internal Medicine
DX: J44.9 Chronic obstructive pulmonary disease, unspecified (principal); T78.40XA Allergy, unspecified, initial encounter; R06.09 Other forms of dyspnea
CPT/HCPCS: 99213

== ENCOUNTER → 2023-01-30 10:15 | Outpatient (BNVA) | payer MEDICARE, OTHER, SELFPAY | PROVIDERS: PCP Internal Medicine; Visit Provider Internal Medicine | DX: J44.9 Chronic obstructive pulmonary disease, unspecified (principal); R06.09 Other forms of dyspnea; T78.40XA Allergy, unspecified, initial encounter | CPT/HCPCS: 99212 ==

== ENCOUNTER 2023-07-31 10:39 | Outpatient (REF) | payer MEDICARE, OTHER, SELFPAY ==
--- NOTE | ~2023-07-31 | XR_ITS ---
EXAMINATION: XR CHEST CLINICAL INFORMATION: Acute bronchitis, chronic obstructive pulmonary disease. COMPARISON: 11/18/2021 chest radiograph, 08/09/2021. Sternum radiograph. TECHNIQUE: 2 views of the chest were obtained. FINDINGS: Previously identified sternal fracture is less conspicuous characteristic of interval healing. Advanced multilevel degenerative changes in the thoracic spine. Bones are diffusely demineralized. Surgical clips in the upper abdomen. Loss of height of several mid and lower thoracic vertebral bodies redemonstrated with particularly notable compression fracture of what is likely T12. There is no gross pneumothorax. Trace left pleural effusion. Cardiac silhouette is enlarged. Increased prominence of bilateral interstitial markings, particularly left [id number] lung greater than right, may represent chronic/scar, although an inflammatory/infectious process could also be considered. Bilateral central bronchiectatic changes. XR/XR chest 2V IMPRESSION: 1. Increased prominence of bilateral interstitial markings, particularly left [id number] lung greater than right, may represent chronic/scar, although an inflammatory/infectious process could also be considered. 2. Bilateral central bronchiectatic changes. 3. Previously identified sternal fracture is less conspicuous characteristic of interval healing.
== END 2023-07-31 10:40 | disposition home or self-care (01) ==
LOC: HO.XRAY 10:39
PROVIDERS: PCP Internal Medicine; Visit Provider Internal Medicine
DX: J44.9 Chronic obstructive pulmonary disease, unspecified (principal); J30.9 Allergic rhinitis, unspecified; R06.09 Other forms of dyspnea
CPT/HCPCS: 71046; 94010; 99212

== ENCOUNTER 2023-07-31 10:39 | Outpatient (AMB) | payer MEDICARE, OTHER, SELFPAY ==
--- NOTE | 2023-07-31 10:49 | A.OFFVIS_ITS ---
Intake Vital Signs 07/31/23 10:50 Height 5 ft 3 in Weight 136 lb BMI 24.1 BP 104/60 Blood Pressure Location Lt brachial Position Sitting Pulse 72 Pulse Source Pulse Oximeter Pulse Oximetry (%) 95 Oxygen Delivery Method Room Air Intake Visit Reasons: copd Intake Note: pt is here for follow up and states she is short of breath more than usual for the past month or so, and had brochititis when she was in [place], and is interested in handicap placard if she qualifies. Geospatial Extractor Analysis Required: No Allergies iodine [Iodine] Allergy (Mild, Verified 01/30/23 10:23) SWELLING WITH CONTRAST DYE IV contrast dye Allergy (Severe, Uncoded 01/30/23 10:23) throat closed up codeine Allergy (Unknown, Uncoded 01/30/23 10:23) stomach upset PFSH Medical History Dyspnea on exertion Sternal fracture Allergic rhinitis COPD (chronic obstructive pulmonary disease) Allergic Social History Patient Tobacco Use Status: Never used Tobacco Physical Exam Vital Signs: Last Vital Signs Pulse 72 07/31/23 10:50 BP 104/60 07/31/23 10:50 Pulse Ox 95 07/31/23 10:50 Oxygen Delivery Method Room Air 07/31/23 10:50 BMI result Body Mass Index 24.1 Office Procedures Spirometry Testing Spirometry Comments: Spirometry done in the office, Dr. Sanabria has the results results scanned to her chart. 72300- Spirometry Results Reviewed Results Reviewed: spirometry : FVC= 1.49 L 66 % FEV1 =1,08 63 % FEF 25-75 = 55 % Assessment & Plan Assessment & Plan (1) COPD (chronic obstructive pulmonary disease): Comment: MILD ASTHMA/COPD, MANIFESTED MAINLY BY COUGH AND MILD OCCASIONAL WHEEZING ESPECIALLY IN A.M. HOURS. Code(s): J44.9 - Chronic obstructive pulmonary disease, unspecified Plan: TX: CONTNUE TO USE ADVAIR 100-50 1 INHALATION UAUALLY ONCE A DAY, AND MAY GO BACK TO B.I.D. IF SYMPTOMS GET ANY WORSE. ALBUTEROL INHALER 2 PUFFS Q 6 HOURS P.R.N.. (2) Allergic rhinitis: Comment: PATIENT HAS SYMPTOMS OF CHRONIC ALLERGIC RHINITIS WHICH ARE MAINLY SEASONAL. Code(s): J30.9 - Allergic rhinitis, unspecified Plan: TX : FLONASE 2 SPRAYS IN EACH NOSTRIL DAILY CETIRIZINE 10 MG P.O. ONCE A DAY P.R.N. (3) Dyspnea on exertion: Comment: PATIENT HAS MILD TO MODERATE DYSPNEA ON EXERTION. THIS SEEMS TO BE DUE TO MILD RESTRICTIVE PULMONARY DISORDER. THERE WAS NO SIGNIFICANT HYPOXEMIA ON WALKING. Code(s): R06.09 - Other forms of dyspnea Plan: Tx : ADVISED TO DO DEEP BREATHING EXERCISES 3 TIMES A DAY. SHE DOES HAVE INCENTIVE SPIROMETRY DEVICE AT HOME. Orders: Orders XR chest 2V Today J30.9 - Allergic rhinitis, unspecified, J44.9 - Chronic obstructive pulmonary disease, unspecified, R06.09 - Other forms of dyspnea AMB Spirometry Testing Today J44.9 - Chronic obstructive pulmonary disease, unspecified Coding Level of Care Code Est Pt Level 3 (20577) Diagnoses COPD (chronic obstructive pulmonary disease) J44.9 Allergic rhinitis J30.9 Dyspnea on exertion R06.09 CPT Codes Spirometry - CPT: 71959- Spirometry ([id number])
[2023-07-31 10:50] VITALS: BP 104/60; PULSE 72; O2SAT 95; BMI 24.1
== END 2023-07-31 11:33 | disposition home or self-care (01) ==
PROVIDERS: PCP Internal Medicine; Visit Provider Internal Medicine
DX: J44.9 Chronic obstructive pulmonary disease, unspecified (principal); J30.9 Allergic rhinitis, unspecified; R06.09 Other forms of dyspnea
CPT/HCPCS: 94010; 99213

== ENCOUNTER 2023-12-04 10:45 | Outpatient (AMB) | payer MEDICARE, OTHER, SELFPAY ==
--- NOTE | 2023-12-04 10:54 | MHC.OFFVIS ---
Vital Signs 12/04/23 10:55 Height 5 ft 3 in Weight 132 lb BMI 23.4 BP 102/64 Blood Pressure Location Lt brachial Position Sitting Pulse 78 Pulse Source Pulse Oximeter Pulse Oximetry (%) 94 Oxygen Delivery Method Room Air Intake Visit Reasons: COPD Intake Note: pt is here for follow up and is feeling great, but did state her breathing is not that great lately Technical Support Professional Required: No Allergies iodine [Iodine] Allergy (Mild, Verified 12/04/23 11:15) SWELLING WITH CONTRAST DYE IV contrast dye Allergy (Severe, Uncoded 12/04/23 11:15) throat closed up codeine Allergy (Unknown, Uncoded 12/04/23 11:15) stomach upset Medication List - Last Reconciled 12/04/23 by Fabian Sanabria MD albuterol sulfate 90 mcg/actuation 2 puffs PO Q6H PRN cetirizine 10 mg PO DAILY colchicine 0.6 mg PO DAILY PRN flu vac 2020 [id number](PF) 60 mcg (15 mcg x 4)/0.5 mL mL IM fluticasone propion-salmeterol 100-50 mcg/dose (Advair Diskus) 1 inh inhalation Q12H 30 days fluticasone propionate 50 mcg/actuation 1 spray intranasal DAILY hydroxyzine HCl 25 mg PO BID PRN memantine 10 mg PO BID omeprazole 20 mg PO QAM propranolol 10 mg PO BID raloxifene 60 mg PO DAILY sertraline 100 mg PO DAILY Do you need a note to return to daycare/school/sports/work: No HPI HPI COPD: Details: AND IS 88 YEARS OLD VERY PLEASANT FEMALE, COMES FOR FOLLOW-UP OF HER COPD. CLAIMS THAT SHE DOES NOT HAVE ANY MAINTENANCE INHALER, AND SINCE THEN SHE IS GETTING MORE SHORT OF BREATH WHEN SHE WALKS FROM THE HOUSE TO THE CAR. OR ESPECIALLY OUTDOORS IF SHE HAS TO WALK UP HILL. SHE HAS IS FROM THE PARKING LOT TO THE OFFICE OVER HERE SHE HAD TO STOP A FEW TIMES. SHE HAS MILD INTERMITTENT COUGH. DENIES ANY ACTIVE WHEEZING. [facility] Medical History Dyspnea on exertion Sternal fracture Allergic rhinitis COPD (chronic obstructive pulmonary disease) Allergic Social History Patient Tobacco Use Status: Never used Tobacco Review of Systems Const All systems reviewed & are unremarkable except as noted in HPI and below Eyes Reports no additional complaints ENT Reports nasal congestion and Reports nasal discharge (Mild off and on) Card Denies chest pain, Denies irregular heart rhythm and Denies leg edema Resp Reports as per HPI GI Reports no additional complaints Reports no additional complaints Musc Reports no additional complaints Skin/Breast Reports system reviewed and no additional complaints, except as documented Neuro Reports no additional complaints Psych Reports no additional complaints Physical Exam Vital Signs: Last Vital Signs Pulse 78 12/04/23 10:55 BP 102/64 12/04/23 10:55 Pulse Ox 94 12/04/23 10:55 Oxygen Delivery Method Room Air 12/04/23 10:55 BMI result Body Mass Index 23.4 Const General: healthy appearing, comfortable, no acute distress, alert and awake Orientation/consciousness: patient oriented x3 HEENT Head: Yes normal to inspection General nose exam: No nasal polyps present, No nasal discharge present and Other nasal findings present (Mild nasal congestion) Face and sinus: Yes sinuses nontender Mouth: oropharynx normal Throat: Yes posterior oropharynx normal Eyes General: appearance normal, both eyes and all related structures Neck Neck: Yes normal visual inspection, Yes no lymphadenopathy, Yes trachea midline and Yes no JVD Thyroid: Thyroid normal Chest Chest palpation & inspection: normal inspection of the chest, normal palpation of entire chest wall and no tenderness Resp Other: Percussion note resonant, has good breath sounds on both sides. No audible wheezes, rhonchi or crepitations Cardio Palpation: normal PMI Rate: regular rate Rhythm: regular rhythm Heart sounds: no gallops and no murmurs GI Palpation (GI): Soft to palpation, nontender, No hepatosplenomegaly present and no masses Auscultation: normal bowel sounds Back/Spine/Pelvis Thoracic/Lumbar Spine: thoracic and lumbar spine normal to inspection Skin General skin exam: no rashes or lesions noted Neuro General: patient oriented x3 and no focal motor deficits Cranial nerves: Yes CN's II-XII intact bilaterally Extrem General: Yes normal to inspection, Yes no clubbing, cyanosis or edema and Yes no calf tenderness Psych Speech and movement: Normal speech and movement present Assessment & Plan Assessment & Plan (1) COPD (chronic obstructive pulmonary disease): Comment: MILD ASTHMA/COPD, MANIFESTED MAINLY BY COUGH AND MILD OCCASIONAL WHEEZING ESPECIALLY IN A.M. HOURS. Code(s): J44.9 - Chronic obstructive pulmonary disease, unspecified Category: Medical Plan: ADVAIR DISKUS 100-51 INHALATION B.I.D. USE IT REGULARLY VENTOLIN HFA 2 PUFFS Q 6 HOURS P.R.N.. (2) Dyspnea on exertion: Comment: PATIENT HAS MILD TO MODERATE DYSPNEA ON EXERTION. THIS SEEMS TO BE DUE TO MILD RESTRICTIVE AND MILD OBSTRUCTIVE PULMONARY DISORDER. THERE WAS NO SIGNIFICANT HYPOXEMIA ON WALKING. Code(s): R06.09 - Other forms of dyspnea Category: Medical Plan: EXPLAINED TO HER THAT SHE DOES HAVE SOME CHRONIC PULMONARY DISEASE, WHEN SHE WALKS UP [place]ILL SHE IS EXPECTED TO HAVE SOME DYSPNEA, SHE NEEDS TO ADJUST HER WALKING SPEED. ADVISED TO DO DEEP BREATHING EXERCISES ABOUT 2 OR 3 TIMES A DAY. (3) Allergic rhinitis: Comment: PATIENT HAS SYMPTOMS OF CHRONIC ALLERGIC RHINITIS WHICH ARE MAINLY SEASONAL. AND DO FLARE UP OFF AND ON. Code(s): J30.9 - Allergic rhinitis, unspecified Category: Medical Plan: USE FLONASE NASAL SPRAY 1 SPRAY IN EACH NOSTRIL B.I.D. P.R.N. Medications: Refilled fluticasone propion-salmeterol 100-50 mcg/dose (Advair Diskus) 1 inh inhalation Q12H 30 days 60 ea 5RF COPD J44.9 - Chronic obstructive pulmonary disease, unspecified Coding Level of Care Code Est Pt Level 3 (95820) Diagnoses COPD (chronic obstructive pulmonary disease) J44.9 Dyspnea on exertion R06.09 Allergic rhinitis J30.9
[2023-12-04 10:55] VITALS: BP 102/64; PULSE 78; O2SAT 94; BMI 23.4
== END 2023-12-04 11:15 | disposition home or self-care (01) ==
PROVIDERS: PCP Internal Medicine; Visit Provider Internal Medicine
DX: J44.9 Chronic obstructive pulmonary disease, unspecified (principal); R06.09 Other forms of dyspnea; J30.9 Allergic rhinitis, unspecified
CPT/HCPCS: 99213

== ENCOUNTER → 2023-12-04 10:45 | Outpatient (BNVA) | payer MEDICARE, OTHER, SELFPAY | PROVIDERS: PCP Internal Medicine; Visit Provider Internal Medicine | DX: J44.9 Chronic obstructive pulmonary disease, unspecified (principal); J30.9 Allergic rhinitis, unspecified; R06.09 Other forms of dyspnea | CPT/HCPCS: 99212 ==

== ENCOUNTER 2024-06-16 11:12 | Outpatient (AMB) | payer MEDICARE, OTHER, SELFPAY ==
[2024-06-16 11:18] VITALS: BP 110/58; PULSE 71; O2SAT 94; BMI 23.8
--- NOTE | 2024-06-16 11:18 | MHC.OFFVIS ---
Vital Signs 06/16/24 11:18 Height 5 ft 3 in Weight 134 lb 7.712 oz BMI 23.8 BP 110/58 L Blood Pressure Location Lt brachial Position Sitting Pulse 71 Pulse Source Pulse Oximeter Pulse Oximetry (%) 94 Oxygen Delivery Method Room Air Intake Visit Reasons: COPD Intake Note: pt is here for follow up and states she does get out of breath Skill Training Program Coordinator Required: No Allergies iodine [Iodine] Allergy (Mild, Verified 06/16/24 11:45) SWELLING WITH CONTRAST DYE IV contrast dye Allergy (Severe, Uncoded 06/16/24 11:45) throat closed up codeine Allergy (Unknown, Uncoded 06/16/24 11:45) stomach upset Medication List - Last Reconciled 06/16/24 by Fabian Sanabria MD albuterol sulfate 90 mcg/actuation 2 puffs PO Q6H PRN albuterol sulfate mg inhalation Q6H cetirizine 10 mg PO DAILY colchicine 0.6 mg PO DAILY PRN flu vac 2020 [id number](PF) 60 mcg (15 mcg x 4)/0.5 mL mL IM fluticasone propion-salmeterol 100-50 mcg/dose (Advair Diskus) 1 inh inhalation Q12H 30 days fluticasone propionate 50 mcg/actuation 1 spray intranasal DAILY hydroxyzine HCl 25 mg PO BID PRN ibuprofen 800 mg PO TID memantine 10 mg PO BID 90 days omeprazole 20 mg PO QAM propranolol 20 mg PO BID 90 days raloxifene 60 mg PO DAILY sertraline 200 mg (2 x 100 mg) PO DAILY 90 days Do you need a note to return to daycare/school/sports/work: No HPI HPI COPD: Details: This 89 years old very pleasant female is here for 6 months follow-up. For her mild COPD She walks slow with a cane usually staying in the house. When she goes outdoors she does have shortness of breath on exertion especially if she has to walk a long distance. However she denies any cough or wheezing. She uses the Advair 100-50 twice a day and albuterol only once in a while. Luckily she has had no respiratory infection. [facility] Medical History Dyspnea on exertion Sternal fracture Allergic rhinitis COPD (chronic obstructive pulmonary disease) Allergic Social History Patient Tobacco Use Status: Never used Tobacco Review of Systems Const All systems reviewed & are unremarkable except as noted in HPI and below Eyes Reports no additional complaints ENT Reports nasal congestion and Reports nasal discharge (Mild off and on) Card Denies chest pain, Denies irregular heart rhythm and Denies leg edema Resp Reports as per HPI GI Reports no additional complaints Reports no additional complaints Musc Reports no additional complaints Skin/Breast Reports system reviewed and no additional complaints, except as documented Neuro Reports no additional complaints Psych Reports no additional complaints Physical Exam Vital Signs: Last Vital Signs Pulse 71 06/16/24 11:18 BP 110/58 L 06/16/24 11:18 Pulse Ox 94 06/16/24 11:18 Oxygen Delivery Method Room Air 06/16/24 11:18 BMI result Body Mass Index 23.8 Const General: healthy appearing, comfortable, no acute distress, alert and awake Orientation/consciousness: patient oriented x3 HEENT Head: Yes normal to inspection General nose exam: No nasal polyps present, No nasal discharge present and Other nasal findings present (Mild nasal congestion) Face and sinus: Yes sinuses nontender Mouth: oropharynx normal Throat: Yes posterior oropharynx normal Eyes General: appearance normal, both eyes and all related structures Neck Neck: Yes normal visual inspection, Yes no lymphadenopathy, Yes trachea midline and Yes no JVD Thyroid: Thyroid normal Chest Chest palpation & inspection: normal inspection of the chest, normal palpation of entire chest wall and no tenderness Resp Other: Percussion note resonant, has good breath sounds on both sides. No audible wheezes, rhonchi or crepitations Cardio Palpation: normal PMI Rate: regular rate Rhythm: regular rhythm Heart sounds: no gallops and no murmurs GI Palpation (GI): Soft to palpation, nontender, No hepatosplenomegaly present and no masses Auscultation: normal bowel sounds Back/Spine/Pelvis Thoracic/Lumbar Spine: thoracic and lumbar spine normal to inspection Skin General skin exam: no rashes or lesions noted Neuro General: patient oriented x3 and no focal motor deficits Cranial nerves: Yes CN's II-XII intact bilaterally Extrem General: Yes normal to inspection, Yes no clubbing, cyanosis or edema and Yes no calf tenderness Psych Speech and movement: Normal speech and movement present Assessment & Plan Assessment & Plan (1) COPD (chronic obstructive pulmonary disease): Comment: MILD ASTHMA/COPD, MANIFESTED MAINLY BY COUGH AND MILD OCCASIONAL WHEEZING ESPECIALLY IN A.M. HOURS. Code(s): J44.9 - Chronic obstructive pulmonary disease, unspecified Category: Medical Plan: Continue Advair 100-50 1 inhalation b.i.d.. Use albuterol HFA 2 puffs Q 6 hours only p.r.n. if any attacks of wheezing (2) Allergic rhinitis: Comment: PATIENT HAS SYMPTOMS OF CHRONIC ALLERGIC RHINITIS WHICH ARE MAINLY SEASONAL. AND DO FLARE UP OFF AND ON. Code(s): J30.9 - Allergic rhinitis, unspecified Category: Medical Plan: OK to takes cetirizine 10 mg once a day p.r.n. and Flonase-51 spray in each nostril daily (3) Dyspnea on exertion: Comment: PATIENT HAS MILD TO MODERATE DYSPNEA ON EXERTION. THIS SEEMS TO BE DUE TO MILD RESTRICTIVE AND MILD OBSTRUCTIVE PULMONARY DISORDER. THERE WAS NO SIGNIFICANT HYPOXEMIA ON WALKING. Code(s): R06.09 - Other forms of dyspnea Category: Medical Plan: Patient is encouraged to do some walking on a daily basis. Also try to do deep breathing exercises on her own a few times every day. Coding Level of Care Code Est Pt Level 3 (79981) Diagnoses COPD (chronic obstructive pulmonary disease) J44.9 Allergic rhinitis J30.9 Dyspnea on exertion R06.09
== END 2024-06-16 11:54 | disposition home or self-care (01) ==
PROVIDERS: PCP Internal Medicine; Visit Provider Internal Medicine
DX: J44.9 Chronic obstructive pulmonary disease, unspecified (principal); J30.9 Allergic rhinitis, unspecified; R06.09 Other forms of dyspnea
CPT/HCPCS: 99213

== ENCOUNTER → 2024-06-16 11:12 | Outpatient (BNVA) | payer MEDICARE, OTHER, SELFPAY | PROVIDERS: PCP Internal Medicine; Visit Provider Internal Medicine | DX: J44.9 Chronic obstructive pulmonary disease, unspecified (principal); J30.9 Allergic rhinitis, unspecified; R06.09 Other forms of dyspnea | CPT/HCPCS: 99212 ==

== ENCOUNTER 2024-07-02 15:56 | Outpatient (AMB) | payer MEDICARE, OTHER, SELFPAY ==
--- NOTE | 2024-07-02 16:04 | MHC.PC.OV ---
Vital Signs 07/02/24 16:15 Height 4 ft 11.25 in Weight 137 lb BMI 27.4 BP 118/60 Blood Pressure Location Lt brachial Pulse 70 Pulse Source Pulse Oximeter Temp 97.1 F Pulse Oximetry (%) 95 Intake Visit Reasons: follow up Intake Note: no other issues Allergies iodine [Iodine] Allergy (Mild, Verified 07/02/24 16:40) SWELLING WITH CONTRAST DYE IV contrast dye Allergy (Severe, Uncoded 07/02/24 16:40) throat closed up codeine Allergy (Unknown, Uncoded 07/02/24 16:40) stomach upset Medication List - Last Reconciled 07/02/24 by Tasha Rosas PA-C albuterol sulfate 90 mcg/actuation 2 puffs PO Q6H PRN albuterol sulfate mg inhalation Q6H aspirin (Adult Aspirin Regimen) 81 mg PO DAILY calcium carbonate 500 mg PO DAILY cephalexin 500 mg PO BID cetirizine 10 mg PO DAILY fluticasone propion-salmeterol 100-50 mcg/dose (Advair Diskus) 1 inh inhalation Q12H 30 days fluticasone propionate 50 mcg/actuation 1 spray intranasal DAILY hydroxyzine HCl 25 mg PO BID PRN ibuprofen 800 mg PO TID memantine 10 mg PO BID 90 days omeprazole 20 mg PO QAM propranolol 20 mg PO BID 90 days raloxifene 60 mg PO DAILY sertraline 200 mg (2 x 100 mg) PO DAILY 90 days PFSH Medical History Elevated TSH History of mammogram (~08/25/22) Mild cognitive impairment Asthma Pulmonary nodule Major depressive disorder Ulnar neuropathy Cervical radiculopathy Pes planus Microscopic hematuria Varicella zoster Alcoholism Coronary artery disease Spinal stenosis Osteoarthritis GERD (gastroesophageal reflux disease) Dyspnea on exertion Sternal fracture Allergic rhinitis COPD (chronic obstructive pulmonary disease) Allergic Social History Patient Tobacco Use Status: Never used Tobacco Physical exam (Primary Care) Vital Signs: Last Vital Signs Temp 97.1 F 07/02/24 16:15 Pulse 70 07/02/24 16:15 BP 118/60 07/02/24 16:15 Pulse Ox 95 07/02/24 16:15 Care Plan Goal for BP management: <130/80 at goal BMI result Body Mass Index 27.4 BMI Assessment/Plan discussion: High BMI High, discussed plan: lifestyle, weight reduction, dietary, physical activity and alcohol moderation Tobacco/Smoking Status: Tobacco use Status Patient Tobacco Use Status Never used Tobacco 07/02/24 16:17 Coding Level of Care Code Est Pt Level 4 (82916) Complex EM visit Add On G2211 Diagnoses Mild cognitive impairment G31.84 Asthma J45.909 Pulmonary nodule R91.1 Major depressive disorder F32.9 Coronary artery disease I25.10 Osteoarthritis M19.90 GERD (gastroesophageal reflux disease) K21.9 Acute gout of right ankle, unspecified cause M10.9 Gout site: ankle Gout etiology: unspecified cause Chronicity: acute Laterality: right COPD (chronic obstructive pulmonary disease) J44.9 Elevated TSH R79.89 Assessment & Plan Assessment & Plan (1) Mild cognitive impairment: Comment: With memory loss Code(s): G31.84 - Mild cognitive impairment of uncertain or unknown etiology Category: Medical Plan: Patient to continue memantine 10 mg p.o. b.i.d.. Condition is chronic and stable continue to monitor. (2) Asthma: Code(s): J45.909 - Unspecified asthma, uncomplicated Category: Medical Plan: Patient has albuterol inhaler, albuterol for her nebulizer, Advair diskus. Condition is chronic and stable continue to monitor. (3) Pulmonary nodule: Code(s): R91.1 - Solitary pulmonary nodule Category: Medical Plan: Condition is chronic and stable continue to monitor. (4) Major depressive disorder: Code(s): F32.9 - Major depressive disorder, single episode, unspecified Category: Medical Plan: Patient to continue sertraline 200 mg daily. Condition is chronic and stable continue to monitor. (5) Coronary artery disease: Code(s): I25.10 - Atherosclerotic heart disease of [place] coronary artery without angina pectoris Category: Medical Plan: Patient to continue baby aspirin 81 mg daily. Condition is chronic and stable continue to monitor. (6) Osteoarthritis: Code(s): M19.90 - Unspecified osteoarthritis, unspecified site Category: Medical Plan: Patient to continue raloxifene 60 mg daily. Condition is chronic and stable. (7) GERD (gastroesophageal reflux disease): Code(s): K21.9 - Gastro-esophageal reflux disease without esophagitis Category: Medical Plan: Patient to continue omeprazole 20 mg daily. Condition is chronic and stable. (8) Gout: Code(s): M10.9 - Gout, unspecified Category: Medical Qualifiers: Gout site: ankle Gout etiology: unspecified cause Chronicity: acute Laterality: right Qualified Code(s): M10.9 - Gout, unspecified Plan: Condition is chronic and stable will continue to monitor. (9) COPD (chronic obstructive pulmonary disease): Comment: MILD ASTHMA/COPD, MANIFESTED MAINLY BY COUGH AND MILD OCCASIONAL WHEEZING ESPECIALLY IN A.M. HOURS. Code(s): J44.9 - Chronic obstructive pulmonary disease, unspecified Category: Medical Plan: Patient has albuterol inhaler, albuterol for her nebulizer, Advair diskus. Condition is chronic and stable continue to monitor. (10) Elevated TSH: Code(s): R79.89 - Other specified abnormal findings of blood chemistry Category: Medical Plan: Patient had an elevated TSH level on 11/11/2022. It does not appear that she had a reflex free T4 and there have been no repeat studies. Will order TSH with reflex T4. Otherwise patient denies any symptoms at this time. Will continue to monitor in next lab Plan Plan Our management will proceed with repeat thyroid function testing due to prior elevated levels. Continuation with current asthma and COPD treatments, including albuterol and Advair, is advised, ensuring effective symptom control. Attention to coronary artery health is sustained with aspirin therapy. Her regimen for GERD with omeprazole will be adhered to, given its success in controlling symptoms. Current therapies appear to be maintaining stable health for her osteoarthritis, spinal stenosis, and gout, which will be monitored for flare-ups or increased discomfort. Quality of life and functional independence will be emphasized in our ongoing care plan, with substantial patient involvement and shared decision-making observed. Orders: Orders C Reactive Protein Today Z00.00 - Encounter for general adult medical examination without abnormal findings Lipid Panel Today Z00.00 - Encounter for general adult medical examination without abnormal findings Vitamin D 25-OH Total Today Z00.00 - Encounter for general adult medical examination without abnormal findings Vitamin B1 Today Z00.00 - Encounter for general adult medical examination without abnormal findings Complete Blood Count Auto Diff Today Z00.00 - Encounter for general adult medical examination without abnormal findings Comprehensive Lost[place]. Panel Fast Today Z00.00 - Encounter for general adult medical examination without abnormal findings Hemoglobin A1c Today Z00.00 - Encounter for general adult medical examination without abnormal findings Magnesium Today Z00.00 - Encounter for general adult medical examination without abnormal findings Liver Panel Today Z00.00 - Encounter for general adult medical examination without abnormal findings TSH reflex Free T4 Today Z00.00 - Encounter for general adult medical examination without abnormal findings Vitamin B12 and Folate Today Z00.00 - Encounter for general adult medical examination without abnormal findings Patient Instructions: Patient Instructions - Continue using prescribed inhalers and nebulizer for asthma and COPD. - Take all current medications as directed, including baby aspirin and omeprazole. - Undergo fasting for 12 hours prior to blood tests to ensure accurate results. - Schedule a follow-up appointment in six months, earlier if blood work shows abnormalities. - Maintain regular activities and safety precautions at home, reporting any new or worsening symptoms. - Contact the office with any questions or concerns about medications or symptoms. Scribe Plan - Not visible on output: History of Present Illness 89-year-old female with a past medical history of mild cognitive impairment with memory loss, asthma, COPD, history of a pulmonary nodule, major depressive disorder, coronary artery disease, osteoarthritis, spinal stenosis, GERD, chronic dyspnea on exertion due to mild restrictive and mild obstructive pulmonary disease, history of gout who is presenting to the primary care clinic today for follow-up evaluation for her chronic medical conditions. Patient would like a plaque signed for [employer] parking which will be signed today. Patient reports she lives at home alone. She is able to perform all her ADLs. She is able to cook, clean and do her own lawn laundry. The elevator is down where she lives therefore she has had to walk up 4 flights of stairs. She reports this happens often. She reports she normally goes to buddhism. Patient denies any recent falls, worsening memory impairment. She reports that she has a daughter who lives in [place] and she will go down to reside with her for 2 months and then she comes back to [place]. Her son lives in [place]. Patient is still able to drive and able to hear and see at nighttime without any difficulties. She is taking all her medications as prescribed. She denies any acute complaints at this time. Social History - Lives alone on the fourth floor of an old-style apartment building - Attends buddhism regularly, engaging in social and spiritual activities weekly - Has two children, one residing in [place] and the other nearby in [facility] - Describes herself as independent in daily activities such as cooking and cleaning - Prefers not to drive at night, due to comfort and safety concerns Review of Systems - General: Denies recent falls. - Cardiovascular: Denies chest pain. - Respiratory: Reports shortness of breath when walking. - Gastrointestinal: Denies black or bloody stools; states bowel movements are regular. - Genitourinary: Reports normal urination. - Neurological: Reports mild memory loss but manages daily activities. Physical Exam Appearance: Alert. Oriented X3. No acute distress. Head: Normal external exam. Normocephalic. Atraumatic. Eyes: Pupils are equal, round, and reactive to light. Extraocular movements intact. Conjunctiva and sclera normal. Eyelids normal. Ears: External auditory canal normal. Tympanic membranes normal. Throat: Pharynx normal. Uvula midline. Moist mucous membranes. Neck: Normal inspection. Neck supple. Full range of motion. No adenopathy. Thyroid Normal. No meningeal signs. No neck mass noted. Cardiovascular: Normal heart rate and rhythm. Heart sound normal. No murmurs noted. Pulses normal throughout. Respiratory: No respiratory distress. Painless inspiration. Breath sounds normal. No wheezes/rales/rhonchi noted. Chest nontender. No accessory muscle usage noted or decreased air movement noted. Abdomen: Soft and nontender. Bowel sounds normal in all 4 quadrants. No distention noted. No organomegaly noted. No visible injury noted. Back: No costovertebral angle tenderness. Full range of motion noted. Skin: Skin warm and dry. Normal skin color. Normal skin turgor. No rashes/lesions/lacerations noted. Extremities: No lower extremity edema. Extremities exhibit normal range of motion. Extremities nontender. Slight swelling noted in one leg, possibly from walking. Neuro: Oriented X 3. No motor deficit. No sensory deficit. Reflexes normal. Results - Labs: Prior labs from November 2022 indicated elevated thyroid levels. Repeat lab work including CBC, CMP, CRP, Hemoglobin, Magnesium, Liver Function Tests, Lipid Panel has been ordered. Plan Our management will proceed with repeat thyroid function testing due to prior elevated levels. Continuation with current asthma and COPD treatments, including albuterol and Advair, is advised, ensuring effective symptom control. Attention to coronary artery health is sustained with aspirin therapy. Her regimen for GERD with omeprazole will be adhered to, given its success in controlling symptoms. Current therapies appear to be maintaining stable health for her osteoarthritis, spinal stenosis, and gout, which will be monitored for flare-ups or increased discomfort. Quality of life and functional independence will be emphasized in our ongoing care plan, with substantial patient involvement and shared decision-making observed. Patient was informed and verbally consented to the use of an ambient scribe for clinic note documentation during this visit. Discussion Notes I discussed with the patient the importance of repeating her thyroid function test to confirm prior elevated readings. We reviewed her current medication regimen and affirmed its efficacy, noting the absence of adverse effects while achieving therapeutic targets. I highlighted the necessity for ongoing monitoring of her respiratory status due to both asthma and COPD, reiterating the use of daily inhalers to manage symptoms effectively. We discussed the management of her depression, which appears controlled with sertraline, with plans to maintain this treatment given her positive response. We talked about the follow-up plan, which includes a comprehensive blood test and another appointment in six months unless results prompt an earlier consultation. The patient was agreeable to the outlined plan, expressing understanding and consent. Patient Instructions - Continue using prescribed inhalers and nebulizer for asthma and COPD. - Take all current medications as directed, including baby aspirin and omeprazole. - Undergo fasting for 12 hours prior to blood tests to ensure accurate results. - Schedule a follow-up appointment in six months, earlier if blood work shows abnormalities. - Maintain regular activities and safety precautions at home, reporting any new or worsening symptoms. - Contact the office with any questions or concerns about medications or symptoms.
[2024-07-02 16:15] VITALS: BP 118/60; PULSE 70; TEMP 36.2; O2SAT 95; BMI 27.4
--- OUTSIDE RECORDS SUMMARY | 2024-07-02 19:29 | XMS_ITS | Patient Health Record ---
Author Organization Jone Crowell MD Address [address] [place], [place] [id number] Care Team Providers Care Table Hand Name Role Phone Latrell Alvarez DO Primary Care Provider Unavail able Jone Crowell Unavailable [phone] Reason For Referral No Information Plan Of Treatment No Information Insurance Providers Payer Name Payer Address Payer Phone Subscriber Number Group Number Insured Name Patient Relationship to Insured Coverage Start Date Coverage End Date [employer] [address] [place] [address] [id number] Rosetta Khan Self - patient is the insured [address] [place] [phone] [id number] Rosetta Khan Self - patient is the insured
--- OUTSIDE RECORDS SUMMARY | 2024-07-02 19:29 | XMS_ITS ---
Author Organization [facility] Address [address] [place] [id number] Care Team Providers Care Seater Assembler Name Role Phone Antonio NOE, Latrell Primary Care Provider Unavail shahab Akil Sandra Unavailable [phone] Encounters Encounter Location Date Provider Diagnosis [address] [address] 04/16/2023 Sandra Barnard Plan Of Treatment Next Appt Details Provider Name:Sandra Rubens Akil , 07/21/2024 01:30:00 PM, [address] [place] [address], [phone], Provider Name:Sandra Rubens Akil , 08/04/2024 03:45:00 PM, [address] [place] [address], [phone], Progress Notes * Rosetta ZHANGDOB:1935 (89 yo F)Acc No.[id number]:04/16/2023 Progress Note Patient:?Rosetta ZHANG Provider:?Sandra Barnard DPM :1935???Age:87 Y???Sex:Female D ate:04/16/2023 Address:[address] [place] [address] , [place] [address], [phone] Pcp:Latrell Alvarez MD Subjective: * Chief Complaints: * ??? * Medical History:? Objective: * Vitals:? Assessment: Plan: * Treatment: * Images: * The named appointment provid er may or may not be the originator of this progress note, and it is not deemed complete until electronically signed by the appointment provider. Sign off status: Pending * Provider:Bertha Barnard DPM Date:?2022 Generated for Lars tamayo/Rosi/Camilla on:?07/02/2024 07:28 PM EST
--- OUTSIDE RECORDS SUMMARY | 2024-07-02 19:29 | XMS_ITS ---
Author Organization Latrell Alvarez DO, [place] Address [address] [place], [place] [id number] Care Team Providers Care Electric Arc Welder Name Role Phone Latrell Alvarez Primary Care Provider REASON FOR VISIT 6 month f/u Encounters Encounter Location Date Provider Diagnosis Latrell Alvarez DO, FACP [address] [place] [phone] 03/25/2024 Latrell Alvarez PLAN OF TREATMENT No Information
--- OUTSIDE RECORDS SUMMARY | 2024-07-02 19:29 | XMS_ITS | Patient Health Record ---
[facility] Address [address] [place] [address] Care Team Providers Care Gas Tester Name Role Phone Latrell Alvarez MD Primary Care Provider Unavail able Black, Sandra Unavailable [phone] Allergies Allergen (clinical drug ingredient) Drug/Non Drug Allergy documented on EMR Reaction Allergy Type Onset Date Status Codeine Phosphate stomach upset Drug Allergy Active povidone-iodine Povidone Iodine ivp dye Drug Allergy Active Reason For Referral No Information Medications Medication SIG (Take, Route, Frequency, Duration) Notes Start Date End Date Status Aspirin EC Active Evista 60 MG 1 tablet Orally Once a day Active Ranitidine HCl 150 MG Orally Twice a day Active Gabapentin Active Oscal 500/200 D-3 Ac tive Colchicine 0.6 MG as directed Orally Active Ammonium Lactate 12 % 1 APPLICATION TO A FFECTED AREA EXTERNALLY TO FEET TWICE A DAY 30 DAYS for 30 Activ e Prednisone Active Keflex 500 MG 1 capsule Orally viola ry 12 hrs for 10 day(s) 10/14/2018 Not-Taking Propranolol-HCTZ 10 1 tablet Orally Twic e a day Active Lysine Not-Taking Sertraline HCl 100 MG 1 tablet Orally Once a day Active Vitamin C 250 MG Orally Not -Taking Medrol jasiel 4mg as directed orally a s directed for 6 days 10/14/2018 Active Medrol 4 MG as directed Orally a s directed for 6 days 12/24/2020 Active Immunizations Vaccine Route Administration Date Status Comme nts COVID-19 Moderna Vaccine Unknown 06/19/2020 Administered Second Dose: 07/19/2020 Social History Tobacco Use: Social History Observation Description Date Details (start date - stop date) Never Smoker NA - NA Tobacco Use/Smoking Question Answer Notes Are you a: nonsmoker Additional Findings: Tobacco Non-User Aggressive non-smoker Alcohol Screen Question Answer Notes Did you have a drink containing alcohol in the p ast year? No Points 0 Interpretation Negative Tobacco use other than smoking: Question Answer Notes Are you an other tobacco user? No Problems Problem Type SNOMED Code ICD Code Onset Dates Problem Status W/U Status Risk Notes Problem Localized, primary osteoarthritis of the ankle and/or foot (696023872) Primary osteoarthritis, right ankle and foot (M19.071) Active confirmed Problem Acquired hallux valgus (97251799) Hallux valgus (acquired), right foot (M20.11) Active confirmed Problem Acquired hallux valgus (98732462) Hallux valgus (acquired), left foot (M20.12) Active confirmed Response to treatment - Improvement Problem Acquired hallux valgus (42090297) Hallux valgus (acquired), right foot (M20.11) Active confirmed Problem Acquired hammer toe of right foot (312944499218816 5) Other hammer toe(s) (acquired), right foot (M20.41) Active confirmed Problem Acquired hammer toe of left foot (638840226945421 3) Other hammer toe(s) (acquired), left foot (M20.42) Active confirmed Problem Primary gout (64400689) Idiopathic gout, 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) Active confirmed Problem Primary gout (32689612) Idiopathic gout, left ankle and foot (M10.072) Active confirmed Problem 654389070 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) Active confirmed Problem Localized, primary osteoarthritis of the ankle and/or foot (977610477) Osteoarthritis of left ankle and foot (M19.072) Active confirmed Problem Acquired deformity of right foot (272808206146019 00) PlantarFlexion of metatarsal of right foot (M21.6X1) Active confirmed Problem Acquired deformity of left foot (437907760437410 04) PlantarFlexion of metatarsal of left foot (M21.6X2) Active confirmed Vital Signs Height 5 ft 2 in in 01/21/2024 Weight 135 lbs 01/21/2024 BMI 24.69 kg/m2 01/21/2024 Procedures Procedure Date Ordered Date Performed Result Body Sit e 58386-IMFRQTG NAIL, 6 OR MORE 07/23/2023 N/A 28080-QGQKGQH NAIL, 6 OR MORE 01/21/2024 N/A Encounters Encounter Location Date Provider Diagnosis [facility] [address] 07/23/2023 Sandra Black Xerosis cutis L85.3 ; Hallux valgus (acquired), left foot M20.12 ; Tinea unguium B35.1 ; Pain in left toe(s) M79.675 ; Pain in right toe(s) M79.674 ; Bursitis of left foot M77.52 ; Hallux valgus, right M20.11 and Bursitis of right foot M77.[address] [facility] [address] 01/21/2024 Sandra Black Hallux valgus (acquired), left foot M20.12 ; Tinea unguium B35.1 ; Pain in left toe(s) M79.675 ; Pain in right toe(s) M79.674 ; Bursitis of left foot M77.52 ; Hallux valgus, right M20.11 and Bursitis of right foot M77.51 Assessments Encounter Date Diagnosis (ICD Code) Assessment Notes Treatment Notes Treatment Clinical Notes Section Notes 07/23/2023 Xerosis cutis (ICD-10 - L85.3) Response to treatment - Improvement 07/23/2023 Hallux valgus (acquired), left foot (ICD-10 - M20.12) 01/21/2024 Tinea unguium (ICD-10 - B35.1) 01/21/2024 Hallux valgus (acquired), left foot (ICD-10 - M20.12) Response to treatment - Improvement 01/21/2024 Pain in left toe(s) (ICD-10 - M79.675) 07/23/2023 Tinea unguium (ICD-10 - B35.1) 07/23/2023 Pain in left toe(s) (ICD-10 - M79.675) 01/21/2024 Pain in right toe(s) (ICD-10 - M79.674) 01/21/2024 Bursitis of left foot (ICD-10 - M77.52) 07/23/2023 Pain in right toe(s) (ICD-10 - M79.674) 07/23/2023 Bursitis of left foot (ICD-10 - M77.52) 01/21/2024 Hallux valgus, right (ICD-10 - M20.11) Response to treatment - Improvement 01/21/2024 Bursitis of right foot (ICD-10 - M77.51) 07/23/2023 Hallux valgus, right (ICD-10 - M20.11) 07/23/2023 Bursitis of right foot (ICD-10 - M77.51) Plan Of Treatment Pending Test Test Name Order Date *Uric Acid, Serum 10/14/2018 *Uric Acid, Serum 10/18/2020 *Uric Acid, Serum 12/24/2020 *CBC With Differential/Platelet 10/15/19 19 *Sedimentation Rate-Westergren 9 *Sedimentation Rate-Westergren 1 *Sedimentation Rate-Westergren 1 C-Reactive Protein, Quant 12/24/2020 83337-JSJUSDV NAIL, 6 OR MORE 01/13/2021 11944-PHDTYFS NAIL, 6 OR MORE 08/17/2022 62326-VIBIYEN NAIL, 6 OR MORE 11/02/2022 50900-NZRDQYZ NAIL, 6 OR MORE 07/23/2023 16242-JEOQXNC NAIL, 6 OR MORE 01/21/2024 11572-QDQFBNQ NAIL, 6 OR MORE 09/22/2013 12206-NQNCNOL NAIL, 6 OR MORE 02/13/2014 74507-Suhuofho Plate 02/13/2014 40562-Qeltazsj Plate 09/22/2013 29314-Mfqkmnkg Plate Each Additional 19422-Googgxtm Plate Each Additional 02/2014 76047, L2475-ZDTWV/INJECT, JOINT/BURSA 0 05/16/2018 CRP 10/18/2020 Next Appt Details Provider Name:Sandra Barnard , 07/21/2024 01:30:00 PM, [address] [place] [address], [phone], Provider Name:Sandra Barnard , 08/04/2024 03:45:00 PM, [address] [place] [address], [phone], Insurance Providers Payer Name Payer Address Payer Phone Subscriber Number Group Number Insured Name Patient Relationship to Insured Coverage Start Date Coverage End Date [employer] [address] [place] [address] [id number] Rosetta Khna Self - patient is the insured [facility] [address] [place] [address] [phone] [id number] Rosetta Khan Self - patient is the insured Medical (General) History Medical History History ICD Code Neuropathy Osteoporosis Arthritis Depression Back,Hip,and Knee pain Gastroesophageal reflux disease (GERD) Coronary artery disease osteoarthritis Spinal stenosis dizziness Surgical History Surgery Date(Month/Year) knee 2004 hand 2005 cholecystectomy appendectomy cataract-lens implants L4-5 decompression
--- OUTSIDE RECORDS SUMMARY | 2024-07-02 19:29 | XMS_ITS ---
Author Organization [facility] C are Address [address] [place] [address] [place] [address] Care Team Providers Care Log Feeder Name Role Phone none, none Primary Care Provider Nora Morse Unavailable [phone] VON KUMAR Unavailable [phone] REASON FOR VISIT Imaging Order SOCIAL HISTORY Sex Assigned At : Social History Observation Description Sex Assigned At Female Encounters Encounter Location Date Provider Diagnosis [facility] [address] [place] [address] [place] [address] 05/22/2023 VON KUMAR Chesty cough R05.8 ; COPD, 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 [place] [address] Subjective: * Chief Complaints: * ?Imaging Order * Medical History:?? * Surgical History:?? * Hospitalization/Major Diagno stic Procedure:?? * Medications:?? Objective: Assessment: * Assessment: 1.??Chesty cough - R05.8??2. ??COPD, mild - J44.9??3.??Abnormal chest xray - R93.89?? Plan: * Treatment: 2.??COPD, mild?Imaging: CT Scan : Chest without contrast (Ordered for 05/22/2023)* 3.??Abnormal chest xray?Imaging: CT Scan : Chest without contrast (Ordered for 05/22/2023)* * Procedure Codes:?? * true * Date:??
--- OUTSIDE RECORDS SUMMARY | 2024-07-02 19:29 | XMS_ITS ---
Author Organization [facility] Address [address] [place] [address] Care Team Providers Care Licensed Weigher Name Role Phone Antonio NOE, Latrell Primary Care Provider Unavail able Black, Sandra Unavailable [phone] Allergies Allergen (clinical drug ingredient) Drug/Non Drug Allergy documented on EMR Reaction Allergy Type Onset Date Status Codeine Phosphate stomach upset Drug Allergy Active povidone-iodine Povidone Iodine ivp dye Drug Allergy Active REASON FOR VISIT Painful Nail(s) aggrevated by shoes and causing difficulty standing/walking., Foot pain Medications Medication SIG (Take, Route, Frequency, Duration) Notes Start Date End Date Status Ammonium Lactate 12 % 1 APPLICATION TO A FFECTED AREA EXTERNALLY TO FEET TWICE A DAY 30 DAYS for 30 Activ e Keflex 500 MG 1 capsule Orally viola ry 12 hrs for 10 day(s) 10/14/2018 Not-Taking Lysine Not-Taking Vitamin C 250 MG Orally Not -Taking Medrol 4 MG as directed Orally a s directed for 6 days 12/24/2020 Active Aspirin EC Active Ranitidine HCl 150 MG Orally Twice a day Active Gabapentin Active Oscal 500/200 D-3 Ac tive Medrol jasiel 4mg as directed orally a s directed for 6 days 10/14/2018 Active Evista 60 MG 1 tablet Orally Once a day Active Colchicine 0.6 MG as directed Orally Active Prednisone Active Propranolol-HCTZ 10 1 tablet Orally Twic e a day Active Sertraline HCl 100 MG 1 tablet Orally Once a day Active Social History Tobacco Use: Social History Observation Description Date Details (start date - stop date) Never Smoker NA - NA Tobacco Use/Smoking Question Answer Notes Are you a: nonsmoker Additional Findings: Tobacco Non-User Aggressive non-smoker Tobacco use other than smoking: Question Answer Notes Are you an other tobacco user? No Vital Signs Height 5 ft 2 in in 01/21/2024 Weight 135 lbs 01/21/2024 BMI 24.69 kg/m2 01/21/2024 Procedures Procedure Date Ordered Date Performed Result Body Sit e 17795-ELIPICZ NAIL, 6 OR MORE 01/21/2024 N/A Encounters Encounter Location Date Provider Diagnosis [facility] [address] [address] 01/21/2024 Sandra Barnard Hallux valgus (acquired), left foot M20.12 ; Tinea unguium B35.1 ; Pain in left toe(s) M79.675 ; Pain in right toe(s) M79.674 ; Bursitis of left foot M77.52 ; Hallux valgus, right M20.11 and Bursitis of right foot M77.51 Assessments Encounter Date Diagnosis (ICD Code) Assessment Notes Treatment Notes Treatment Clinical Notes Section Notes 01/21/2024 Hallux valgus (acquired), left foot (ICD-10 - M20.12) Response to treatment - Improvement 01/21/2024 Tinea unguium (ICD-10 - B35.1) 01/21/2024 Pain in left toe(s) (ICD-10 - M79.675) 01/21/2024 Pain in right toe(s) (ICD-10 - M79.674) 01/21/2024 Bursitis of left foot (ICD-10 - M77.52) 01/21/2024 Hallux valgus, right (ICD-10 - M20.11) Response to treatment - Improvement 01/21/2024 Bursitis of right foot (ICD-10 - M77.51) Plan Of Treatment Pending Test Test Name Order Date 59650-RTYLDJB NAIL, 6 OR MORE 01/21/2024 Next Appt Details Follow Up: prn, Reason: Provider Name:Sandra A Akil , 07/21/2024 01:30:00 PM, [address] [place] [address], [phone], Provider Name:Sandra A Akil , 08/04/2024 03:45:00 PM, [address] [place] [address], [phone], Procedure Notes * Category Sub-Category Detail Notes Debride Nail 6-10 Nail debridement Performance o f this nail treatment by a nonprofessional would put this patients foot and overall health at risk. Therefore, nail debridement was performed extensively to reduce/remove overall nail length, girth, thickness, subungual debris, and necrotic tissue, by manual and/or electrical means through the use of a nail nipper and/or dremel-type regrinder operator, to a more viable healthy nail plate or bed tissue 6-10. Silver nitrate used for any petechial bleeding as necessary. Definitive antifungal treatment options have been reviewed and discussed with the patient. The patient chooses, no pharmaceutical tx - [address] Progress Notes * Rosetta ZHANGDOB:1935 (89 yo F)Acc No.[id number]:01/21/2024 Progress Note Patient:?Rosetta ZHANG Provider:?Sandra Barnard DPM :1935???Age:88 Y???Sex:Female D ate:01/21/2024 Address:[address] [place] [address] , [address] Pcp:Latrell Alvarez MD Subjective: * Chief Complaints: * ???Painful Nail(s) aggrevate d by shoes and causing difficulty standing/walking.Foot pain * HPI: ???Painful Nails:?Pt States Last PCP Visit:?Date:?11/21/2023 ???Foot Pain:?Location:?Inside, Great toe joint, B/L.?Duration:?several years.?Course:?, improved , at 50%.?Aggravated:?any pressure.?Treatments:?rest/alter normal daily activity , change in shoes,topical medication.? * ROS:?General/Constitutional:?Nausea?denies.?Vomiting?denies.?Hunger Thirst?denies.?Loss appetite?denies.?Chills?denies.?Fatigue?denies.?Fever?denies.?Night Sweats?denies.?Unexplained weight loss?denies.?Unexplained weight gain?denies.?HEENTM:?Dentures?denies.?Dizziness?denies.?Glasses/contacts?denies.?Retinopathy?de nies.?Blurred/double vision?denies.?TMJ?denies.?Discharge/drainage?denies.?Implants?denies.?Sore throat?denies.?Dental implants?denies.?Hard of hearing ?denies.?Difficulty chewing/swallowing/speaking?denies.?Nose bleeds?denies.?Sore mouth?denies.?Respiratory:?On Oxygen?denies.?Pneumonia/pleurisy?denies.?Bronchitis?denies.?Emphysema?denies.?C oughing?denies.?Cough blood?denies.?Shortness of breath?denies.?Wheezing?denies.?Cardiovascular:?Pacemaker?denies.?MVP?denies.?WPW?denies.?CHF?denies.?Heart attack?denies.?Septal defect?denies.?Rapid beat?denies.?Chest pain ?denies.?Atrial Fib.?denies.?Murmur/Palpitations?denies.?Gastrointestinal:?Hemorrhoids?denies.?Stomach/Abdominal pain?denies.?Dark blood stool?denies.?Irritable bowel ?denies.?Constipation?denies.?Diarrhea?denies.?Hematology:?Swelling?admits.?Clots?denies.?Varicose Veins?denies.?Bruising?denies.?Bleeding problem?denies.?Genitourinary:?Blood urine?denies.?Frequent/Painfu/urination/bladder control?denies.?Kidney stones?denies.?Infection (UTI)?denies.?Nephropathy?denies.?sex trans dis (STD)?denies.?Prostate?denies.?Musculoskeletal:?Hammertoes?denies.?Bunions?admits.?Back Pain?denies.?Muscle Cramps/ Resting?denies.?Muscle cramps / walking?denies.?Generalized aches and pains?denies.?Weakness?denies.?Integ.:?Ibarra?denies.?Scars?denies.?Corns/calluses?denies.?Ingrown nails?admits.?Painful nails?admits.?Open Sores?denies.?Rashes?denies.?Neurologic:?Difficulty sleeping?denies.?Brain disorder?denies.?Numbness?denies.?Balance trouble?denies.?Confusion?denies.?Fainting/blackouts?denies.?Tingling?denies.?Tr emors?denies.? * Medical History:? * Surgical History:?knee 2004h and 2005cholecystectomy appendectomy cataract-lens implants L4-5 decompression * Hospitalization/Major Diagno stic Procedure:?Denies Past Hospitalization * Family History:?Mother: dece ased, diagnosed with Other specified conditions influencing health status.?Father: , diagnosed with Other specified conditions influencing health status.? denies family hx. * Social History:?Tobacco Use:?Tobacco Use/Smoking?Are you a:?nonsmoker ?Additional Findings: Tobacco Non-User?Aggressive non-smoker ?Tobacco use other than smoking?Are you an other tobacco user??No ???Miscellaneous:?Caffeine: yes, frequency:, 1-2 cups per day. ?Children: 2. ?Exercise: yes, gym. ?Occupation: retired. * Medications:?TakingColchicin e 0.6 MG Tablet as directed Orally Prednisone Propranolol-HCTZ 10 Tablet 1 tablet Orally Twice a day Sertraline HCl 100 MG Tablet 1 tablet Orally Once a day Evista 60 MG Tablet 1 tablet Orally Once a day Ranitidine HCl 150 MG Tablet Orally Twice a day Gabapentin Oscal 500/200 D-3 Aspirin EC Medrol jasiel 4mg Tablet Therapy Pack as directed orally as directed Medrol 4 MG Tablet Therapy Pack as directed Orally as directed Ammonium Lactate 12 % Cream 1 APPLICATION TO AFFECTED AREA EXTERNALLY TO FEET TWICE A DAY 30 DAYS Taking Colchicine 0.6 MG Tablet as directed Orally Taking Prednisone Taking Propranolol-HCTZ 10 Tablet 1 tablet Orally Twice a day Taking Sertraline HCl 100 MG Tablet 1 tablet Orally Once a day Taking Evista 60 MG Tablet 1 tablet Orally Once a day Taking Ranitidine HCl 150 MG Tablet Orally Twice a day Taking Gabapentin Taking Oscal 500/200 D-3 Taking Aspirin EC Taking Medrol jasiel 4mg Tablet Therapy Pack as directed orally as directed Taking Medrol 4 MG Tablet Therapy Pack as directed Orally as directed Taking Ammonium Lactate 12 % Cream 1 APPLICATION TO AFFECTED AREA EXTERNALLY TO FEET TWICE A DAY 30 DAYS Not-Taking/PRNKeflex 500 MG Capsule 1 capsule Orally every 12 hrs Lysine Vitamin C 250 MG Tablet Chewable Orally Medication List reviewed and reconciled with the patientNot-Taking/PRN Keflex 500 MG Capsule 1 capsule Orally every 12 hrs Not-Taking/PRN Lysine Not-Taking/PRN Vitamin C 250 MG Tablet Chewable Orally Medication List reviewed and reconciled with the patient * Allergies:?Codeine Phosphate : stomach upsetPovidone Iodine: ivp dyeyes[Allergies Verified] Objective: * Vitals:?Ht: 5 ft 2 in, Wt: 1 35, BMI: 24.69, Shoe size: 8.5-9W, Wt-k.23 kg. * Examination: ???Neurological: ?SENSORY:?Neurological exam reveals intact sensorium, pain sensation normal, vibration sensation intact, pinprick sensation is normal in the lower extremities,, Pt relates, anesthesia, burning, pins and needles sensation.?Vascular: ?DP PULSES (B):?2/4, B/L.?PT PULSES (B):?2/4, B/L.?Dermatologic: ?SKIN FINDINGS:?Skin exam reveals normal color, texture, elasticity, and turgor. There are no masses, nor excrescences. The interspaces are clear, B/L , Skin shows sign(s) of, dryness, scaling, in a stocking fashion, no fissure(s) present, B/L , approximately 90% LESS.?Nails: ?NAILS are:? Elongated, overgrown, dystrophic, lytic, greater than 3mm thick, discolored and friable with crumbly malodorous subungual debris, with pain on palpation, TA, T1, T3, T4, T5, T6, T8.?Orthopedic: ?BUNION:? Medially prominent 1st MPJ, (mild ) Pain on palpation, inflammation present medially Less 50 percent, Lateral tracking 1st MPJ incompletely reducible, B/L.? Assessment: * Assessment: 1.?Tinea unguium - B35.1???2 .?Hallux valgus (acquired), left foot - M20.12 (Primary)???Notes :Response to treatment - Improvement???3.?Pain in left toe(s) - M79.675???4.?Pain in right toe(s) - M79.674???5.?Bursitis of left foot - M77.52???6.?Hallux valgus, right - M20.11???Notes :Response to treatment - Improvement???7.?Bursitis of right foot - M77.51??? Plan: * Treatment: * Procedures:?Debride Nail 6-10:?Nail debridement?Performance of this nail treatment by a nonprofessional would put this patients foot and overall health at risk. Therefore, nail debridement was performed extensively to reduce/remove overall nail length, girth, thickness, subungual debris, and necrotic tissue, by manual and/or electrical means through the use of a nail nipper and/or dremel-type regrinder operator, to a more viable healthy nail plate or bed tissue 6-10. Silver nitrate used for any petechial bleeding as necessary. Definitive antifungal treatment options have been reviewed and discussed with the patient. The patient chooses, no pharmaceutical tx - [address]37.? * Procedure Codes:?01351 DEBRI DE NAIL, 6 OR MORE, Modifiers: XS * Preventive Medicine:? ??Counseling:?Discussion:?-12: Office or other outpatient visit for the evaluation and management of an established patient, which required a medically appropriate history and/or examination and STRAIGHTFORWARD level of MEDICAL DECISION MAKING, 1 SELF-LIMITED OR MINOR PROBLEM, MINIMAL- NO AMOUNT/COMPLEXITY OF DATA TO BE REVIEWED/ANALYZED, AND MINIMAL RISK OF COMPLICATION/MORBIDITY. The visit on the day of the encounter encompassed interpreting the data and educating the patient as to the nature of their condition, treatment options available according to their individual PMH, meds, allergies, and overall health/living conditions, as well as any potential risks or complications that may occur from a failure to adhere to, and participate in, the recommended course of therapy. The discussion included a complete verbal, and/or written explanation of the examination results, any x-rays taken, the proposed diagnosis, and outline of the treatment plan. A schedule for future care needs was also explained. The patient verbalized an understanding of the instructions at this time and agreed to be an active participant in their treatment. If the patient should think of any questions or concerns after the visit, I have encouraged the patient to call the office.?F/u Visit:?The Pt. was counseled on the remaining treatment options and importance of adherence to recomm; the Pt wishes to continue present protochol longer.? * Follow Up:?prn * Images: * Sign off status: Completed true * Provider:?Sandra Barnard DPM Date:?2023 Generated for Lars tamayo/Rosi/Camilla on:?07/02/2024 07:28 PM EST History and Physical Notes * HPI (History of Present Illness) Category Sub-Category Detail Notes Category Not es Painful Nails Pt States Last PCP Visit: Date:: 11/21/2023 Foot Pain Location: Inside, Great toe joint, B/L Duration: several years Course: , improved , at 50% Aggravated: any pressure Treatments: rest/alter normal da carlos activity , change in shoes,topical medication Examination Category Sub-Category Detail Notes Category Not es Neurological SENSORY: Neurological exa m reveals intact sensorium, pain sensation normal, vibration sensation intact, pinprick sensation is normal in the lower extremities,, Pt relates, anesthesia, burning, pins and needles sensation Dermatologic SKIN FINDINGS: Skin exam reveal s normal color, texture, elasticity, and turgor. There are no masses, nor excrescences. The interspaces are clear, B/L , Skin shows sign(s) of, dryness, scaling, in a stocking fashion, no fissure(s) present, B/L , approximately 90% LESS Orthopedic BUNION: Medially promine nt 1st MPJ, (mild ) Pain on palpation, inflammation present medially Less 50 percent, Lateral tracking 1st MPJ incompletely reducible, B/L Vascular DP PULSES (B): 2/4, B/L PT PULSES (B): 2/4, B/L Nails NAILS are: Elongated, overg rown, dystrophic, lytic, greater than 3mm thick, discolored and friable with crumbly malodorous subungual debris, with pain on palpation, TA, T1, T3, T4, T5, T6, T8
--- OUTSIDE RECORDS SUMMARY | 2024-07-02 19:30 | XMS_ITS ---
Author Organization [facility] C are Address [address] [address] Care Team Providers Care Group Product Manager Name Role Phone none, none Primary Care Provider Nora Morse Unavailable [phone] VON KUMAR Unavailable [phone] SOCIAL HISTORY Sex Assigned At : Social History Observation Description Sex Assigned At Female Encounters Encounter Location Date Provider Diagnosis [facility] [address] [address] 05/16/2023 VON KUMAR PLAN OF TREATMENT No Information Progress Notes * Rosetta ZHANGDOB:1935 (88 yo F)Acc No.[id number]:05/16/2023 Patient:??Rosetta ZHANG Account Number: :1935?Age:88 Y?Sex:Fe male Address:[address] [place] [address] * true * Date:??
--- OUTSIDE RECORDS SUMMARY | 2024-07-02 19:30 | XMS_ITS ---
[facility] Address [address] [place] [address] Care Team Providers Care Vp Data Name Role Phone Antonio NOE, Latrell Primary Care Provider Unavail able Black, Sandra Unavailable [phone] Allergies Allergen (clinical drug ingredient) Drug/Non Drug Allergy documented on EMR Reaction Allergy Type Onset Date Status Codeine Phosphate stomach upset Drug Allergy Active povidone-iodine Povidone Iodine ivp dye Drug Allergy Active REASON FOR VISIT Painful Nail(s) aggrevated by shoes and causing difficulty standing/walking., Foot pain, Skin problem(s) Medications Medication SIG (Take, Route, Frequency, Duration) Notes Start Date End Date Status Lysine Not-Taking Medrol jasiel 4mg as directed orally a s directed for 6 days 10/14/2018 Active Ammonium Lactate 12 % 1 APPLICATION TO A FFECTED AREA EXTERNALLY TO FEET TWICE A DAY 30 DAYS for 30 Activ e Medrol 4 MG as directed Orally a s directed for 6 days 12/24/2020 Active Keflex 500 MG 1 capsule Orally viola ry 12 hrs for 10 day(s) 10/14/2018 Not-Taking Ranitidine HCl 150 MG Orally Twice a day Active Evista 60 MG 1 tablet Orally Once a day Active Oscal 500/200 D-3 Ac tive Gabapentin Active Aspirin EC Active Sertraline HCl 100 MG 1 tablet Orally Once a day Active Vitamin C 250 MG Orally Not -Taking Colchicine 0.6 MG as directed Orally Active Propranolol-HCTZ 10 1 tablet Orally Twic e a day Active Prednisone Active Social History Tobacco Use: Social History [...] Problem Status W/U Status Risk Notes Problem Acquired hallux valgus (34617367) Hallux valgus (acquired) , left foot (M20.12) Active confirmed Response to treatment - Improvement Problem Acquired hallux valgus (79019898) Hallux valgus (acquired) , right foot (M20.11) Active confirmed Vital Signs Height 5 ft 2 in in 07/23/2023 Weight 135 lbs 07/23/2023 BMI 24.69 kg/m2 07/23/2023 Procedures Procedure Date Ordered Date Performed Result Body Sit e 46145-DQIDYHV NAIL, 6 OR MORE 07/23/2023 N/A Encounters Encounter Location Date Provider Diagnosis [facility] [place] [address] [place] [address] 07/23/2023 Sandra Black Xerosis cutis L85.3 ; [...] valgus (acquired), left foot (ICD-10 - M20.12) 07/23/2023 Tinea unguium (ICD-10 - B35.1) 07/23/2023 Pain in left toe(s) (ICD-10 - M79.675) 07/23/2023 Pain in right toe(s) (ICD-10 - M79.674) 07/23/2023 Bursitis of left foot (ICD-10 - M77.52) 07/23/2023 Hallux valgus, right (ICD-10 - M20.11) 07/23/2023 Bursitis of right foot (ICD-10 - M77.51) Plan Of Treatment Pending Test Test Name Order Date [id number] NAIL, 6 OR MORE 07/23/2023 Next Appt Details Follow Up: prn, Reason: Provider Name:Sandra Barnard , 07/21/2024 01:30:00 PM, [address] [place] [address], [phone], Provider Name:Sandra Barnard , 08/04/2024 03:45:00 PM, [address] [place] [address], [phone], Procedure Notes * Category Sub-Category Detail Notes Debride Nail 6-10 Nail debridement Nail debridem ent performed extensively to reduce/remove overall nail length and girth, subungual debris, and necrotic tissue, by manual and electrical means with use of a nail nipper and/or dremel, to more viable healthy nail plate or bed tissue 6-10. Silver nitrate used for any petechial bleeding as necessary (83133). Patient chooses, to use a topical antifungal Progress Notes * Rosetta ZHANGDOB:1935 (88 yo F)Acc No.[id number]:07/23/2023 Progress Note Patient:?Rosetta Zhang Provider:?Sandra Barnard DPM :1935???Age:88 Y???Sex:Female D ate:07/23/2023 Address:[address] [place] [address] , [address] Pcp:Latrell Alvarez MD Subjective: * Chief Complaints: * ???Painful Nail(s) aggrevate d by shoes and causing difficulty standing/walking.Foot painSkin problem(s) * HPI: ???Painful Nails:?Pt States Last PCP Visit:?Date:?04/05/2023 ???Foot Pain:?Location:?Inside, Great toe joint, B/L.?Duration:?several years.?Course:?worse.?Aggrevated:?any pressure.?Treatments:?rest/alter normal daily activity.?Skin problems:?Location:?B/L .?Duration:?, several months.?Course:?, improved , at _90_ %.?Treatments:?medication ( AM Lactin ) , states adherence to recommended treatment application.? * ROS:?General/Constitutional:?Nausea?denies.?Vomiting?denies.?Hunger Thirst?denies.?Loss appetite?denies.?Chills?denies.?Fatigue?denies.?Fever?denies.?Night Sweats?denies.?Unexplained weight loss?denies.?Unexplained [...] than smoking?Are you an other tobacco user??No ???Drugs/Alcohol:?Drugs?Have you used drugs other than those for medical reasons in the past 12 months??No ?Alcohol Screen?Did you have a drink containing alcohol in the past year??No ?Points?0 ?Interpretation?Negative ???Miscellaneous:?Caffeine: yes, frequency:, 1-2 cups per day. ?Children: 2. ?Exercise: yes, gym. ?Occupation: retired. * Medications:?TakingColchicin e 0.6 MG Tablet as directed Orally Prednisone Propranolol-HCTZ 10 Tablet 1 tablet Orally Twice a daySertraline HCl 100 MG Tablet 1 tablet Orally Once a dayEvista 60 MG Tablet 1 tablet Orally Once a dayRanitidine HCl 150 MG Tablet Orally Twice a dayGabapentin Oscal 500/200 D-3 Aspirin EC Medrol jasiel 4mg Tablet Therapy Pack as directed orally as directedMedrol 4 MG Tablet Therapy Pack as directed Orally as directedAmmonium Lactate 12 % Cream 1 APPLICATION TO AFFECTED AREA EXTERNALLY TO FEET TWICE A DAY 30 DAYS Taking Colchicine 0.6 MG Tablet as directed Orally Taking Prednisone Taking Propranolol-HCTZ 10 Tablet 1 tablet Orally Twice a dayTaking Sertraline HCl 100 MG Tablet 1 tablet Orally Once a dayTaking Evista 60 MG Tablet 1 tablet Orally Once a dayTaking Ranitidine HCl 150 MG Tablet Orally Twice a dayTaking Gabapentin Taking Oscal 500/200 D-3 Taking Aspirin EC Taking Medrol jasiel 4mg Tablet Therapy Pack as directed orally as directedTaking Medrol 4 MG Tablet Therapy Pack as directed Orally as directedTaking Ammonium Lactate 12 % Cream 1 APPLICATION TO AFFECTED AREA EXTERNALLY TO FEET TWICE A DAY 30 DAYS Not-Taking/PRNKeflex 500 MG Capsule 1 capsule Orally every 12 hrsLysine Vitamin C 250 MG Tablet Chewable Orally Medication List reviewed and reconciled with the patientNot-Taking/PRN Keflex 500 MG Capsule 1 capsule Orally every 12 hrsNot-Taking/PRN Lysine Not-Taking/PRN Vitamin C 250 MG Tablet Chewable Orally Medication List reviewed and reconciled with the patient * Allergies:?Codeine Phosphate : stomach upsetPovidone Iodine: ivp dyeyes[Allergies Verified] Objective: * Vitals:?Ht: 5 ft 2 in, Wt:13 5, BMI:24.69, Shoe size:8.5-9w. * Examination: ???General Examination: ?GENERAL APPEARANCE:?pleasant, alert, well nourished, well developed, well hydrated, with good attention to hygene/body habitus, and in no acute distress.?ORIENTED:?person,place, and time.?Neurological: ?SENSORY:?Neurological exam reveals intact sensorium, pain sensation normal, vibration sensation intact, pinprick sensation is normal in the lower extremities,, Pt relates, anesthesia, burning, pins and needles sensation.?TINEL'S COMPRESSION:? Negative, Saphenous nerve distribution, B/L.?Vascular: ?DP PULSES:?2/4, B/L.?PT PULSES:?2/4, B/L.?Dermatologic: ?SKIN FINDINGS:?Skin exam reveals normal color, [...] T6, T8.?Orthopedic: ?BUNION:? Medially prominent 1st MPJ, (-) Pain on palpation, inflammation present medially, Lateral tracking 1st MPJ incompletely reducible, B/L.? 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 Plan: * Treatment: * Procedures:?Debride Nail 6-10:?Nail debridement?Nail debridement performed extensively to reduce/remove overall nail length and girth, subungual debris, and necrotic tissue, by manual and electrical means with use of a nail nipper and/or dremel, to more viable healthy nail plate or bed tissue 6-10. Silver nitrate used for any petechial bleeding as necessary (01214). Patient chooses, to use a topical antifungal.? * Procedure Codes:?15500 DEBRI DE NAIL, 6 OR MORE, Modifiers: XS * Preventive Medicine:? ??Counseling:?Discussion:?-14: Office or other outpatient visit for the evaluation and management of an established patient, which required a medically appropriate history and/or examination and MODERATE level of DECISION MAKING for: 1 OR MORE CHRONIC PROBLEM(S) THATS WORSENING, 2 STABLE CHRONIC PROBLEMS, A NEWLY DIAGNOSED PROBLEM WITH UNCERTAIN PROGNOSIS, AN ACUTE COMPLICATED INJURY WITH MULTIPLE TREATMENT OPTIONS, OR AN ACUTE PROBLEM WITH ACCOMPANYING SYSTEMIC SYMPTOMS, THAT POSE(S) A MODERATE RISK OF MORBIDITY. THIS CONDITION MAY ALSO INCLUDE RX DRUG MANAGEMENT, OR A DECISON FOR MINOR SURGERY. The visit on the day of the [...] have encouraged the patient to call the office.?BioMech.:?I discussed the Pts foot biomechanics with them and how it relates to their problem.?Digital Treatment:?HV - I explained to the patient the risks/benefits of all the different treatment options for their pain including: No treatment at all, Rest, Ice, New/supportive/wider/deeper Shoe gear, Digital Padding/Strapping/Taping/Bracing/Gel protective sleeves, Foot/Ankle AFO Bracing, Stretching exercises, Deep Tissue Massage, Arch support/shoe inserts with splay metatarsal padding, and Custom orthoses. I insisted that any digital devices be removed daily and not worn overnight for safety. The patient is to carefully examine the toes daily for any skin irritation while using any splinting or padding device. The advantages and disadvantages of each option were discussed and the patients questions re: shoe gear, padding, custom vs prefabricated inserts, activity level, and consistency in home treatment regimens for optimal success were answered to their verbally confirmed satisfaction. Due to pts age and lack of pain I do not recomm. any surgical invention, Continue with appropriate footwear.?Xerosis:?Given recent successful results to treatment, The patient is to cont the rx cream as directed.? * Follow Up:?prn * Images: * Sign off status: Completed true * Provider:?Sandra Barnard DPM Date:?2023 Generated for Lars tamayo/Rosi/Camilla on:?07/02/2024 07:30 PM EST History and Physical Notes * HPI (History of Present Illness) Category Sub-Category Detail Notes Category Not es Painful Nails Pt States Last PCP Visit: Date:: 04/05/2023 Skin problems Location: B/L Duration: , several months Course: , improved , at _90_ % Treatments: medication ( AM Lact in ) , states adherence to recommended treatment application Foot Pain Location: Inside, Great toe joint, B/L Duration: several years Course: worse Aggravated: any pressure Treatments: rest/alter normal da carlos activity Examination Category Sub-Category Detail Notes Category Not es Neurological SENSORY: Neurological exa m reveals intact sensorium, pain sensation normal, vibration sensation intact, pinprick sensation is normal in the lower extremities,, Pt relates, anesthesia, burning, pins and needles sensation TINEL'S COMPRESSION: Negative, Saphenous nerve distribution, B/L Dermatologic SKIN FINDINGS: Skin exam reveal s normal color, texture, elasticity, and turgor. There are no masses, nor excrescences. The interspaces are clear, B/L , Skin shows sign(s) of, dryness, scaling, in a stocking fashion, no fissure(s) present, B/L , approximately 90% LESS Orthopedic BUNION: Medially promine nt 1st MPJ, (-) Pain on palpation, inflammation present medially, Lateral tracking 1st MPJ incompletely reducible, B/L General Examination GENERAL APPEARANCE: pleasant , alert, well nourished, well developed, well hydrated, with good attention to hygene/body habitus, and in no acute distress ORIENTED: person,place, and ti me Vascular DP PULSES (B): 2/4, B/L PT PULSES (B): 2/4, B/L Nails NAILS are: Elongated, overg rown, dystrophic, lytic, greater than 3mm thick, discolored and friable with crumbly malodorous subungual debris, with pain on palpation, TA, T1, T3, T4, T5, T6, T8
--- OUTSIDE RECORDS SUMMARY | 2024-07-02 19:30 | XMS_ITS ---
Author Organization [facility] Address [address] [address] [place] [address] Care Team Providers Care Garnett Mechanic Name Role Phone none, none Primary Care Provider UnavailNora Singh Unavailable [phone] VON KUMAR Unavailable [phone] scan order SOCIAL HISTORY Sex Assigned At : Social History Observation Description Sex Assigned At Female Encounters Encounter Location Date Provider Diagnosis [facility] [address] [address] [place] [address] 05/22/2023 VON KUMAR PLAN OF TREATMENT No Information Progress Notes * Rosetta ZHANGDOB:1935 (88 yo F)Acc No.[id number]:05/22/2023 Patient:??Rosetta ZHANG :1935?Age:88 Y?Sex:Fe male Address:[address] [place] [address] * true * Date:??
--- OUTSIDE RECORDS SUMMARY | 2024-07-02 19:30 | XMS_ITS ---
Author Organization Latrell Alvarez DO, [facility] Address [address], [place] [id number] Care Team Providers Care Bus Company Manager Name Role Phone Latrell Alvarez Primary Care Provider REASON FOR VISIT Needs call back from office Encounters Encounter Location Date Provider Diagnosis Latrell Alvarez DO, FACP [address] [place] [phone] 02/15/2024 Latrell Alvarez PLAN OF TREATMENT No Information
--- OUTSIDE RECORDS SUMMARY | 2024-07-02 19:30 | XMS_ITS ---
Author Organization Latrell Alvarez DO, [facility] Address [address] [place], [place] [id number] Care Team Providers Care Alternative Energy Technician Name Role Phone Latrell Alvarez Primary Care Provider Encounters Encounter Location Date Provider Diagnosis Latrell Alvarez DO, FACP [address] [place] [phone] 06/24/2024 Latrell Alvarez PLAN OF TREATMENT No Information
--- OUTSIDE RECORDS SUMMARY | 2024-07-02 19:31 | XMS_ITS | Patient Health Record ---
Author Organization [facility] are Address [address] [address] Care Team Providers Care Airfield Defence Guard Name Role Phone none, none Primary Care Provider Nora Morse Unavailable [phone] ALLERGIES No Known Allergies REASON FOR REFERRAL No Information MEDICATIONS Medication SIG (Take, Route, Fr equency, Duration) Notes Start Date End Date Status Albuterol Sulfate HFA Active SOCIAL HISTORY Sex Assigned At : Social History Observation Description Sex Assigned At Female PLAN OF TREATMENT No Information Insurance Providers Payer Name Payer Address Payer Phone Subscriber Number Group Number Insured Name Patient Relationship to Insured Coverage Start Date Coverage End Date Medicare [employer] [address] [address] [place] [address] [id number] [phone] Rosetta Khan Self - patient is the insured 1 [facility] [address] [place] [phone] [phone] [id number] Rosetta Khan Self - patient is the insured 3
== END 2024-07-02 16:32 | disposition home or self-care (01) ==
LOC: HO.HMCSH 15:56
PROVIDERS: PCP Internal Medicine; Visit Provider Physician Assistant Medical
DX: G31.84 Mild cognitive impairment of uncertain or unknown etiology (principal); J45.909 Unspecified asthma, uncomplicated; R91.1 Solitary pulmonary nodule; F32.9 Major depressive disorder, single episode, unspecified; I25.10 Atherosclerotic heart disease of native coronary artery without angina pectoris; M19.90 Unspecified osteoarthritis, unspecified site; K21.9 Gastro-esophageal reflux disease without esophagitis; M10.9 Gout, unspecified; J44.9 Chronic obstructive pulmonary disease, unspecified; R79.89 Other specified abnormal findings of blood chemistry

== ENCOUNTER → 2024-07-02 15:56 | Outpatient (BNVA) | payer MEDICARE, OTHER, SELFPAY | PROVIDERS: PCP Internal Medicine; Visit Provider Physician Assistant Medical | DX: G31.84 Mild cognitive impairment of uncertain or unknown etiology (principal); J45.909 Unspecified asthma, uncomplicated; R91.1 Solitary pulmonary nodule; F32.9 Major depressive disorder, single episode, unspecified; I25.10 Atherosclerotic heart disease of native coronary artery without angina pectoris; M19.90 Unspecified osteoarthritis, unspecified site; K21.9 Gastro-esophageal reflux disease without esophagitis; M10.9 Gout, unspecified; J44.9 Chronic obstructive pulmonary disease, unspecified; R79.89 Other specified abnormal findings of blood chemistry | CPT/HCPCS: 99212 ==

== ENCOUNTER 2024-12-16 11:03 | Outpatient (AMB) | payer MEDICARE, OTHER, SELFPAY ==
[2024-12-16 11:06] VITALS: BP 120/72; PULSE 64; O2SAT 95; BMI 26.8
--- NOTE | 2024-12-16 11:06 | A.OFFVIS_ITS ---
Vital Signs 12/16/24 11:06 Height 4 ft 11.25 in Weight 134 lb BMI 26.8 BP 120/72 Blood Pressure Location Lt brachial Position Sitting Pulse 64 Pulse Source Pulse Oximeter Pulse Oximetry (%) 95 Oxygen Delivery Method Room Air Intake Visit Reasons: COPD Intake Note: pt is here for follow up and has some cough and clearing of the throat, some phelgm once in a while, please send in refill on albuterol hfa Guitar Repairer Required: No Allergies iodine (Iodine) Allergy (Mild, Verified 12/16/24 11:27) SWELLING WITH CONTRAST DYE IV contrast dye Allergy (Severe, Uncoded 12/16/24 11:27) throat closed up codeine Allergy (Unknown, Uncoded 12/16/24 11:27) stomach upset Medication List - Last Reconciled 12/16/24 by Fabian Sanabria MD albuterol sulfate 90 mcg/actuation 2 puffs PO Q6H PRN albuterol sulfate mg inhalation Q6H albuterol sulfate 90 mcg/actuation (Ventolin HFA) 2 puffs inhalation Q4-6H PRN 30 days cetirizine 10 mg PO DAILY fluticasone propion-salmeterol 100-50 mcg/dose (Advair Diskus) 1 inh inhalation Q12H 30 days fluticasone propionate 50 mcg/actuation 1 spray intranasal DAILY hydroxyzine HCl 25 mg PO BID PRN ibuprofen 800 mg PO TID memantine 10 mg PO BID 90 days omeprazole 20 mg PO QAM propranolol 20 mg PO BID 90 days raloxifene 60 mg PO DAILY sertraline 200 mg (2 x 100 mg) PO DAILY 90 days Do you need a note to return to daycare/school/sports/work: No HPI HPI COPD: Details: DARA IS 89 YEARS OLD VERY PLEASANT FEMALE WHO IS HERE FOR 6 MONTHS FOLLOW-UP FOR HER COPD. SHE HAS STAYED VERY STABLE AND DONE WELL WITH HER SIMPLE MEDICAL REGIMEN WHICH INCLUDES ADVAIR 100-51 INHALATION B.I.D. AND ALBUTEROL SOLUTION IN THE NEBULIZER OR ALBUTEROL HFA ONLY P.R.N.. SHE HAS FEELING OF SOME MUCUS IN THE BACK OF HER THROAT MOST OF THE TIME BUT THIS IS RELATED TO ONGOING ALLERGIES. SHE TAKES CETIRIZINE 10 MG ONCE A DAY P.R.N., ALSO HAS FLONASE NASAL SPRAY BUT DOES NOT USE IT ALL THE TIMES. SHE HAS HAD NO ACUTE INFECTION OR EXACERBATION IN THE LAST 6 MONTHS. SHE REMAINS VERY SHARP, WALKS AROUND OKAY, KEEPS THE CANE WITH HER JUST FOR REASSURANCE, EATS WELL, PLAYS CARDS WITH FRIENDS ON A WEEKLY BASIS . [facility] Medical History Elevated TSH History of mammogram (~08/25/22) Mild cognitive impairment Asthma Pulmonary nodule Major depressive disorder Ulnar neuropathy Cervical radiculopathy Pes planus Microscopic hematuria Varicella zoster Alcoholism Coronary artery disease Spinal stenosis Osteoarthritis GERD (gastroesophageal reflux disease) Dyspnea on exertion Sternal fracture Allergic rhinitis COPD (chronic obstructive pulmonary disease) Allergic Social History Patient Tobacco Use Status: Never used Tobacco Review of Systems Const All systems reviewed & are unremarkable except as noted in HPI and below Eyes Reports no additional complaints ENT Reports nasal congestion and Reports nasal discharge (Mild off and on) Card Denies chest pain, Denies irregular heart rhythm and Denies leg edema Resp Reports as per HPI GI Reports no additional complaints Reports no additional complaints Musc Reports no additional complaints Skin/Breast Reports system reviewed and no additional complaints, except as documented Neuro Reports no additional complaints Psych Reports no additional complaints Physical Exam Const General: healthy appearing, comfortable, no acute distress, alert and awake Orientation/consciousness: patient oriented x3 HEENT Head: Yes normal to inspection General nose exam: No nasal polyps present, No nasal discharge present and Other nasal findings present (Mild nasal congestion) Face and sinus: Yes sinuses nontender Mouth: oropharynx normal Throat: Yes posterior oropharynx normal Eyes General: appearance normal, both eyes and all related structures Neck Neck: Yes normal visual inspection, Yes no lymphadenopathy, Yes trachea midline and Yes no JVD Thyroid: Thyroid normal Chest Chest palpation & inspection: normal inspection of the chest, normal palpation of entire chest wall and no tenderness Resp Other: Percussion note resonant, has good breath sounds on both sides. No audible wheezes, rhonchi or crepitations Cardio Palpation: normal PMI Rate: regular rate Rhythm: regular rhythm Heart sounds: no gallops and no murmurs GI Palpation (GI): Soft to palpation, nontender, No hepatosplenomegaly present and no masses Auscultation: normal bowel sounds Back/Spine/Pelvis Thoracic/Lumbar Spine: thoracic and lumbar spine normal to inspection Skin General skin exam: no rashes or lesions noted Neuro General: patient oriented x3 and no focal motor deficits Cranial nerves: Yes CN's II-XII intact bilaterally Extrem General: Yes normal to inspection, Yes no clubbing, cyanosis or edema and Yes no calf tenderness Psych Speech and movement: Normal speech and movement present Assessment & Plan Assessment & Plan (1) COPD (chronic obstructive pulmonary disease): Comment: MILD ASTHMA/COPD, MANIFESTED MAINLY BY COUGH AND MILD OCCASIONAL WHEEZING ESPECIALLY IN A.M. HOURS. REMAINS WELL CONTROLLED WITH MINIMAL TREATMENT. Code(s): J44.9 - Chronic obstructive pulmonary disease, unspecified Category: Medical Plan: USE ADVAIR DISKUS 100-51 INHALATION B.I.D.. ALBUTEROL HFA 2 PUFFS Q 6 HOURS P.R.N. WHEN GOING OUTDOORS. ALBUTEROL SOLUTION IN THE NEBULIZER Q 4-6 HOURS P.R.N. WHEN AT HOME (2) Allergic rhinitis: Comment: PATIENT HAS SYMPTOMS OF CHRONIC ALLERGIC RHINITIS WHICH ARE MAINLY SEASONAL. AND DO FLARE UP OFF AND ON. Code(s): J30.9 - Allergic rhinitis, unspecified Category: Medical Plan: OK TO USE FLONASE NASAL SPRAY 1 SPRAY IN EACH NOSTRIL ONCE A DAY NEEDED AND ALSO CETIRIZINE 10 MG ONCE A DAY P.R.N. Medications: New albuterol sulfate 90 mcg/actuation (Ventolin HFA) 2 puffs inhalation Q4-6H PRN 8.5 grams 3RF shortness of breath or wheezing 30 days Coding Level of Care Code Est Pt Level 3 (27939) Diagnoses COPD (chronic obstructive pulmonary disease) J44.9 Allergic rhinitis J30.9
== END 2024-12-16 11:26 | disposition home or self-care (01) ==
LOC: HO.HPS 11:04
PROVIDERS: PCP Internal Medicine; Visit Provider Internal Medicine
DX: J44.9 Chronic obstructive pulmonary disease, unspecified (principal); J30.9 Allergic rhinitis, unspecified
CPT/HCPCS: 99213

== ENCOUNTER → 2024-12-16 11:03 | Outpatient (BNVA) | payer MEDICARE, OTHER, SELFPAY | PROVIDERS: PCP Internal Medicine; Visit Provider Internal Medicine | DX: J44.9 Chronic obstructive pulmonary disease, unspecified (principal); J30.9 Allergic rhinitis, unspecified | CPT/HCPCS: 99212 ==

== ENCOUNTER 2024-12-30 13:26 | Outpatient (AMB) | payer MEDICARE, OTHER, SELFPAY ==
[2024-12-30 13:32] VITALS: BP 114/66; PULSE 78; RESP 16; TEMP 36.2; O2SAT 98; BMI 26.9
--- NOTE | 2024-12-30 13:32 | A.OFFPC_ITS ---
Vital Signs 12/30/24 13:32 Height 4 ft 11.25 in Weight 134 lb 6 oz BMI 26.9 BP 114/66 Blood Pressure Location Lt brachial Position Sitting Respiration 16 Pulse 78 Pulse Source Pulse Oximeter Temp 97.2 F Temp Source Temporal Artery Scan Pulse Oximetry (%) 98 Oxygen Delivery Method Room Air Intake Visit Reasons: 6 month f/u Intake Note: no other issues Manager Sales Support Required: No Accompanied by: Self / Same As Patient Allergies iodine (Iodine) Allergy (Mild, Verified 12/30/24 15:19) SWELLING WITH CONTRAST DYE IV contrast dye Allergy (Severe, Uncoded 12/30/24 15:19) throat closed up codeine Allergy (Unknown, Uncoded 12/30/24 15:19) stomach upset Medication List - Last Reconciled 12/30/24 by Tasha Rosas PA-C albuterol sulfate 90 mcg/actuation (Ventolin HFA) 2 puffs inhalation Q4-6H PRN 30 days cetirizine 10 mg PO DAILY fluticasone propion-salmeterol 100-50 mcg/dose (Advair Diskus) 1 inh inhalation Q12H 30 days fluticasone propionate 50 mcg/actuation 1 spray intranasal DAILY hydroxyzine HCl 25 mg PO BID PRN ibuprofen 800 mg PO TID memantine 10 mg PO BID 90 days omeprazole 20 mg PO QAM propranolol 20 mg PO BID 90 days raloxifene 60 mg PO DAILY sertraline 200 mg (2 x 100 mg) PO DAILY 90 days Tobacco use date assessed: 12/30/24 Fall risk assessment: No Falls in past year Last assessed Fall Risk: 12/30/24 Dental Screening Dental Screen Date: 12/30/24 Did you have a dental visit in the last 12 months?: Yes Did you have a dental problem in the last 6 months where you did not have access to dental care?: No Was dental information given to patient?: Patient has dentist HPI 6 month f/u HPI Details The patient is an 89-year-old female presenting for a six-month follow- up visit. She reports mild cognitive impairment characterized by forgetfulness, for which she is taking methametidine. The condition is currently managed with medication, and she reports being controlled with her current regimen. The patient also experiences balance issues, which she manages with the use of a cane. She has declined physical therapy, stating that the cane provides sufficient support. Preventative care measures discussed include a comprehensive blood work panel to monitor various health parameters. The patient has been advised to complete this blood work without fasting, as cholesterol levels are not a current concern. Social History - Housing: Lives independently - Functional status: Uses a cane for brianna huang [facility] Medical History (Updated 12/30/24 @ 15:23 by Tasha Rosas PA-C) Preventative health care Unstable balance Elevated TSH History of mammogram (~08/25/22) Mild cognitive impairment Asthma Pulmonary nodule Major depressive disorder Ulnar neuropathy Cervical radiculopathy Pes planus Microscopic hematuria Varicella zoster Alcoholism Coronary artery disease Spinal stenosis Osteoarthritis GERD (gastroesophageal reflux disease) Dyspnea on exertion Sternal fracture Allergic rhinitis COPD (chronic obstructive pulmonary disease) Allergic Family History Father No problems noted. Mother No problems noted. Social History Housing: Apartment Alcohol intake: current Alcohol intake frequency: does not drink Patient Tobacco Use Status: Never used Tobacco service: No Current occupational status: retired Cognitive needs: Yes (cane) Hearing needs: No Vision needs: Yes (reading) Questionnaire PHQ-9 Over the last 2 weeks, how often have you been bothered by any of the following problems? 1. Little interest or pleasure in doing things: not at all 2. Feeling down, depressed, or hopeless: not at all 3. Trouble falling or staying asleep, or sleeping too much: not at all 4. Feeling tired or having little energy: not at all 5. Poor appetite or overeating: not at all 6. Feeling bad about yourself - or that you are a failure or have let yourself or your family down: not at all 7. Trouble concentrating on things, such as reading the newspaper or watching television: not at all 8. Moving or speaking so slowly that other people could have noticed. Or the opposite - being so fidgety or restless that you have been moving around a lot more than usual: not at all 9. Thoughts that you would be better off or of hurting yourself in some way: not at all Total score: 0 Depression Screening Interpretation: Negative Depression Screening Done: Yes 39977 - PHQ-9 Billing: Yes Source: Developed by Drs. Latrell Huerta, Kale Franz and colleagues, with an educational krista from [email or web address]. Thrive Questionnaire Date Thrive assessed: 12/30/24 I am a: Patient What is your living situation today?: I have a steady place to live Within the past 12 months, did the food you bought not last and you didn't have the money to get more?: Never true Within the past 12 months, did you worry whether your food would run out before you got money to buy more?: Never true Do you have trouble paying for medicines?: No Do you have trouble getting transportation to medical appointments?: No Do you have trouble paying your heating and electricity bill?: No Do you have trouble taking care of your child, family member or friend?: No Do you have trouble with day-to-day activities such as bathing, preparing meals, shopping, managing finances, etc.?: No Are you currently unemployed and looking for a job?: No Are you interested in more education?: No Please select the resources that you would like help with: None Currently or been in a relationship where the following occur: No concerns reported THRIVE Score: 0 AUDIT C Alcohol Use Questionnaire (AUDIT-C) 1. How often do you have a drink containing alcohol?: Never 3. How often do you have six or more drinks on one occasion?: Never Total Score: 0 Score Reviewed/Action Taken: No JUVENCIO-7 AMB Questionnaire JUVENCIO-7 Date JUVENCIO - 7 assessed: 12/30/24 Feeling nervous, anxious, or on edge: 0 = Not at all Not being able to stop or control worryin = Not at all Worrying too much about different things: 0 = Not at all Trouble relaxin = Not at all Being so restless that it is hard to sit still: 0 = Not at all Becoming easily annoyed or irritable: 0 = Not at all Feeling afraid as if something awful might happen: 0 = Not at all Total JUVENCIO-7 score (0-4 normal; 5-9 mild; 10-14 moderate; 15-21 severe): 0 Source: Developed by Yaquelin Garcia Kurt Kroenke and colleagues, with an educational krista from [email or web address]. JUVENCIO-7 Assessment Billing JUVENCIO-7 Assessment Tool: JUVENCIO-7 Assessment 83259 Review of Systems Const Details: - Cardiovascular: Denies chest pain, dyspnea, or palpitations - Respiratory: Denies cough or wheezing - Gastrointestinal: Denies abdominal pain, black or bloody stools - Neurological: Reports balance issues; denies dizziness or headaches All systems reviewed & are unremarkable except as noted in HPI and below Physical exam (Primary Care) Vital Signs: Last Vital Signs Temp 97.2 F 12/30/24 13:32 Pulse 78 12/30/24 13:32 Resp 16 12/30/24 13:32 BP 114/66 12/30/24 13:32 Pulse Ox 98 12/30/24 13:32 Oxygen Delivery Method Room Air 12/30/24 13:32 Care Plan Goal for BP management: <140/90 at Goal BMI result Body Mass Index 26.9 BMI Assessment/Plan discussion: High BMI High, discussed plan: lifestyle, weight reduction, dietary, physical activity, alcohol moderation and other Tobacco/Smoking Status: Tobacco use Status Tobacco use date assessed 12/30/24 12/30/24 13:37 Patient Tobacco Use Status Never used Tobacco 12/30/24 13:53 PHQ-9: PHQ-9 Score PHQ-9: Total score 0 12/30/24 13:37 Depression Screening Interpretation: Negative Thrive Assessment: Date of Thrive Assessment Date Thrive assessed 12/30/24 12/30/24 13:37 Currently or been in a relationship where the following occur: No concerns reported Const Other: Appearance: Alert. Oriented X3. No acute distress. Head: Normal external exam. Normocephalic. Atraumatic. Eyes: Pupils are equal, round, and reactive to light. Extraocular movements intact. Conjunctiva and sclera normal. Eyelids normal. Ears: External auditory canal normal. Tympanic membranes normal. Throat: Pharynx normal. Uvula midline. Moist mucous membranes. Neck: Normal inspection. Neck supple. Full range of motion. No adenopathy. Thyroid Normal. No meningeal signs. No neck mass noted. Cardiovascular: Normal heart rate and rhythm. Heart sound normal. No murmurs noted. Pulses normal throughout. Respiratory: No respiratory distress. Painless inspiration. Breath sounds normal. No wheezes/rales/rhonchi noted. Chest nontender. No accessory muscle usage noted or decreased air movement noted. Abdomen: Soft and nontender. Bowel sounds normal in all 4 quadrants. No distention noted. No organomegaly noted. No visible injury noted. Back: No costovertebral angle tenderness. Full range of motion noted. Skin: Skin warm and dry. Normal skin color. Normal skin turgor. No rashes/lesions/lacerations noted. Extremities: No lower extremity edema. Extremities exhibit normal range of motion. Extremities nontender. Neuro: Oriented X 3. No motor deficit. No sensory deficit. Reflexes normal. Balance issues noted; patient uses a cane for assistance. Coding Level of Care Code Est Pt Level 4 (78217) Complex EM visit Add On G2211 Diagnoses Mild cognitive impairment G31.84 Unstable balance R26.89 Preventative health care Z00.00 Additional Codes PHQ-9 - 32009 - PHQ-9 Billing: Yes ([id number]) JUVENCIO-7 Assessment Billing - JUVENCIO-7 Assessment Tool: JUVENCIO-7 Assessment 31328 ([id number]) Assessment & Plan Assessment & Plan (1) Mild cognitive impairment: Comment: With memory loss Code(s): G31.84 - Mild cognitive impairment of uncertain or unknown etiology Category: Medical Plan: The patient is currently managed with methametidine for mild cognitive impairment, characterized by forgetfulness. She reports that her condition is controlled with the current medication regimen. (2) Unstable balance: Code(s): R26.89 - Other abnormalities of gait and mobility Category: Medical Plan: The patient experiences balance issues and uses a cane for support. She has declined physical therapy, indicating that the cane provides adequate assistance. (3) Preventative health care: Code(s): Z00.00 - Encounter for general adult medical examination without abnormal findings Category: Medical Plan: A comprehensive blood work panel has been ordered to monitor various health parameters, including CBC, CMP, hemoglobin A1c, liver function tests, magnesium, TSH, B12, B1, vitamin D, folate, and CRP. The patient has been advised to complete the blood work without fasting, as cholesterol levels are not a current concern. Plan Plan Patient was informed and verbally consented to the use of an ambient scribe for clinic note documentation during this visit. 1. Mild Cognitive Impairment The patient is currently managed with methametidine for mild cognitive impairment, characterized by forgetfulness. She reports that her condition is controlled with the current medication regimen. 2. Balance Issues The patient experiences balance issues and uses a cane for support. She has declined physical therapy, indicating that the cane provides adequate assistance. 3. Preventative Care A comprehensive blood work panel has been ordered to monitor various health parameters, including CBC, CMP, hemoglobin A1c, liver function tests, magnesium, TSH, B12, B1, vitamin D, folate, and CRP. The patient has been advised to complete the blood work without fasting, as cholesterol levels are not a current concern. During the visit, I discussed with the patient the importance of completing the blood work to monitor her health parameters. I advised her that fasting was not necessary for this round of tests, as cholesterol levels are not a priority at this time. We also reviewed her current medication regimen and confirmed that she feels her mild cognitive impairment is well-managed. Orders: Orders Comprehensive Met. Panel Today Z00.00 - Encounter for general adult medical examination without abnormal findings Patient Instructions: - Complete the blood work today without fasting. - Use the cane for balance support as needed. - Follow up in six months for a routine check-up.
== END 2024-12-30 14:13 | disposition home or self-care (01) ==
LOC: HO.HMCSH 13:26
PROVIDERS: PCP Internal Medicine; Visit Provider Physician Assistant Medical
DX: G31.84 Mild cognitive impairment of uncertain or unknown etiology (principal); R26.89 Other abnormalities of gait and mobility; Z00.00 Encounter for general adult medical examination without abnormal findings

== ENCOUNTER 2024-12-30 13:26 | Outpatient (REF) | payer MEDICARE, OTHER, SELFPAY ==
[2024-12-30 16:43] LABS: Alanine Aminotransferase 17 U/L (0-31); Albumin Level 3.7 g/dL (3.5-5.0); Alkaline Phosphatase 64 U/L (39-117); Anion Gap 10 (12-20); Aspartate Amino Transferase 31 U/L (5-31); Blood Urea Nitrogen 19 mg/dL (9-16); Calcium 8.7 mg/dL (8.4-10.2); Carbon Dioxide 25 mmol/L (22-29); Chloride 108 mmol/L (96-108); Estimated Glomerular Filt Rate > 60; Potassium 4.4 mmol/L (3.3-5.1); Sodium 139 mmol/L (135-145); Total Protein 6.3 g/dL (6.5-8.0)
== END 2024-12-30 13:27 | disposition home or self-care (01) ==
LOC: HO.HMGCLDS 13:26
PROVIDERS: PCP Physician Assistant Medical; Visit Provider Physician Assistant Medical
DX: Z00.00 Encounter for general adult medical examination without abnormal findings (principal); G31.84 Mild cognitive impairment of uncertain or unknown etiology; R26.89 Other abnormalities of gait and mobility; Z79.899 Other long term (current) drug therapy
CPT/HCPCS: 36415; 80053; 96127; 99212

== ENCOUNTER 2025-01-27 10:47 | Outpatient (AMB) | payer MEDICARE, OTHER, SELFPAY ==
[2025-01-27 10:59] VITALS: BP 118/80; PULSE 68; TEMP 36.7; O2SAT 98; BMI 27.4
--- NOTE | 2025-01-27 10:59 | AM.OFFWIN_ITS ---
Intake Vital Signs 01/27/25 10:59 Height 4 ft 11.5 in Weight 138 lb BMI 27.4 BP 118/80 Blood Pressure Location Rt brachial Position Sitting Pulse 68 Pulse Source Pulse Oximeter Temp 98.1 F Temp Source Oral Pulse Oximetry (%) 98 Oxygen Delivery Method Room Air Intake Visit Reasons: EP-lt side chest pain Intake Note: Pt came into the [place] [facility]. Amb (I) gait steady with a cane. Pt c/o left side chest pain (sharp) since last week then stopped. Pt c/o increase left side chest pain with abduction of left arm and deep breathing since yesterday. C/o increase shortness of breath with climbing the stairs. Pt stated hx of respiratory and cardiac issues. Pt speaks in full sentences. Lungs - cta. Heart sounds - regular. Skin - pink warm and dry. Michelle Bourgeois (HAWA) and Poly (JACOBO) aware, pt roomed to 10 Patient Tobacco Use Status: Never used Tobacco Allergies iodine (Iodine) Allergy (Mild, Verified 01/27/25 11:06) SWELLING WITH CONTRAST DYE IV contrast dye Allergy (Severe, Uncoded 12/30/24 15:19) throat closed up codeine Allergy (Unknown, Uncoded 12/30/24 15:19) stomach upset Do you need a note to return to daycare/school/sports/work: No HPI HPI Comments History of Present Illness Details History of Present Illness - The patient is an 89-year-old female w ith a pmed hx of CAD and COPD presenting with chest pain x 1 week. - Reports sudden onset of indigestion at age 89, with pain localized to the left chest, she has never experienced pain like this before. She thinks it is indigestion and took baking soda with water last night but this did not resolve her pain. - Worse with deep breath, not constant, cannot describe further. Comes and goes. - Denies radiation of pain to arm, neck, back or shoulder, denies abdominal pain, numbness, tingling, or associated symptoms such as nausea, vomiting or sweating. - Denies dizziness or lightheadedness. D enies excessive belching or burning in throat or history of GERD. - Was worse with raising her left arm ov erhead yesterday but not today. Does not hurt if she pushes on her chest. - ECG shows new left bundle branch block , indicating possible myocardial infarction, not seen on prior EKG 04/2020. General: Cooperative, healthy appearing, comfortable, no acute distress and well developed Orientation: Patient oriented x3 Limitations: No limitations Head: Normal to inspection Ears: Hearing grossly normal bilaterally Nose: Normal External nose present Face and sinus: Normal facial exam Eyes: Appearance normal, both eyes and all related structures Neck: Normal visual inspection and Yes full ROM Respiratory: Normal respiratory effort and able to speak in complete sentences. Clear to auscultation throughout, no wheezes, rales and rhonchi. Cardiac: bradycardic rate and rhythm, Normal S1 and S2, no murmurs, rubs or gallops Skin: No rashes or lesions noted Neuro: Patient oriented x3, gait normal Extremities: Normal to inspection Review of Systems - Cardiovascular: Reports chest pain loc alized to the left side. Denies radiation to back, arm, or neck. - Gastrointestinal: Reports indigestion. Denies nausea, vomiting, or burping. - Neurological: Denies numbness or tingl ing in the arm, shoulder, or neck. All systems reviewed and are unremarkable except as noted in HPI [facility] Medical History Preventative health care Unstable balance Elevated TSH History of mammogram (~08/25/22) Mild cognitive impairment Asthma Pulmonary nodule Major depressive disorder Ulnar neuropathy Cervical radiculopathy Pes planus Microscopic hematuria Varicella zoster Alcoholism Coronary artery disease Spinal stenosis Osteoarthritis GERD (gastroesophageal reflux disease) Dyspnea on exertion Sternal fracture Allergic rhinitis COPD (chronic obstructive pulmonary disease) Allergic Family History Father No problems noted. Mother No problems noted. Social History Housing: Apartment Alcohol intake: current Alcohol intake frequency: does not drink Patient Tobacco Use Status: Never used Tobacco service: No Current occupational status: retired Cognitive needs: Yes (cane) Hearing needs: No Vision needs: Yes (reading) Physical Exam Vital Signs: Last Vital Signs Temp 98.1 F 01/27/25 10:59 Pulse 68 01/27/25 10:59 BP 118/80 01/27/25 10:59 Pulse Ox 98 01/27/25 10:59 Oxygen Delivery Method Room Air 01/27/25 10:59 BMI result Body Mass Index 27.4 Office Procedures EKG Details: New LBBB no present on prior, sinus eleazar no other acute changes. [id number], Complete Assessment & Plan Assessment & Plan (1) Chest pain: Code(s): R07.9 - Chest pain, unspecified Qualifiers: Chest pain type: chest pain on breathing Qualified Code(s): R07.1 - Chest pain on breathing Plan: Assessment and Plan - Gave 325mg chewable ASA in office. - New LBBB on EKG suggesting possible myocardial infarction. - Recommend immediate emergency department transfer for cardiac evaluation. - Called EMS for transport to [facility]. Patient was informed and verbally consented to the use of an ambient scribe for clinic note documentation during this visit. Orders: Orders AMB EKG-In Office Today R07.9 - Chest pain, unspecified Coding Level of Care Code New Pt Level 5 (66430) Diagnoses Chest pain on breathing R07.1 Chest pain type: chest pain on breathing CPT Codes EKG - CPT: 69175-[id number], Complete ([id number])
== END 2025-01-27 12:02 | disposition home or self-care (01) ==
PROVIDERS: PCP Internal Medicine; Visit Provider Physician Assistant
DX: R07.1 Chest pain on breathing (principal)

== ENCOUNTER → 2025-01-27 10:47 | Outpatient (BNVA) | payer MEDICARE, OTHER, SELFPAY | PROVIDERS: PCP Internal Medicine; Visit Provider Physician Assistant | DX: R07.1 Chest pain on breathing (principal); I25.10 Atherosclerotic heart disease of native coronary artery without angina pectoris; J44.9 Chronic obstructive pulmonary disease, unspecified | CPT/HCPCS: 93005; 99202 ==

== ENCOUNTER 2025-02-03 14:32 | Outpatient (AMB) | payer MEDICARE, OTHER, SELFPAY ==
--- NOTE | 2025-02-03 14:33 | MHC.PC.OV ---
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 Accompanied by: Self / Same As Patient Allergies iodine (Iodine) Allergy (Mild, Verified 02/03/25 17:10) SWELLING WITH CONTRAST DYE IV contrast dye Allergy (Severe, Uncoded 02/03/25 17:10) throat closed up codeine Allergy (Unknown, Uncoded 02/03/25 17:10) stomach upset Medication List - Last Reconciled 02/03/25 by Tasha Rosas PA-C albuterol sulfate 90 mcg/actuation (Ventolin HFA) 2 puffs inhalation Q4-6H PRN 30 days cetirizine 10 mg PO DAILY fluticasone propion-salmeterol 100-50 mcg/dose (Advair Diskus) 1 inh inhalation Q12H 30 days fluticasone propionate 50 mcg/actuation 1 spray intranasal DAILY hydroxyzine HCl 25 mg PO BID PRN ibuprofen 800 mg PO TID memantine 10 mg PO BID 90 days omeprazole 20 mg PO QAM propranolol 20 mg PO BID 90 days raloxifene 60 mg PO DAILY sertraline 200 mg (2 x 100 mg) PO DAILY 90 days Tobacco use date assessed: 02/03/25 Dental Screening Dental Screen Date: 12/30/24 HPI ER visit f/u [facility] HPI Details The patient is an 89-year-old female presenting for a follow-up from [facility] Emergency Department for chest pain. She reports the chest pain has completely resolved and has not returned. Patient was seen at [facility] on 01/27/2025. And ACS workup was obtained which included a troponin which was elevated although when they repeated the troponin it was stable and the same with the 1st troponin. Her EKG was performed which revealed a new left bundle-branch block although showed sinus bradycardia and there was no changes in her AR, QRS, QTC and QTC intervals. They repeated the EKG and it showed stability of this new left bundle-branch block and inversions that are likely secondary to PVC they believe. They also believe that she had costochondritis. They gave her Tylenol and Motrin to help her pain. They reported that her blood work was otherwise at baseline she had the mild elevation in the troponin although was stable cross 2 readings and they reported nothing more needed to be done at that time. She also had mild cardiac enlargement on chest x-ray. They did not recommend any outpatient follow-up although they reported that her pro BNP was 902 and they did not have anything to compare at that time. Her chest x-ray was normal and she was not having any chest pain or any evidence of fluid overload therefore they discharged her home to follow up with us. Patient reports since she has been discharged home she has not had any chest pain. The chest pain was left-sided, sharp, and worsened with deep breaths, without radiation or associated symptoms like nausea or shortness of breath. She has a history of Chronic Obstructive Pulmonary Disease (COPD), Gastroesophageal Reflux Disease (GERD), osteoporosis, neuropathic pain, and tachycardia, managed with propranolol. [facility] Medical History (Updated 02/03/25 @ 17:22 by Tasha Rosas PA-C) Elevated troponin level not due myocardial infarction Hospital discharge follow-up Intermittent chest pain LBBB (left bundle branch block) Preventative health care Unstable balance Elevated TSH History of mammogram (~08/25/22) Mild cognitive impairment Asthma Pulmonary nodule Major depressive disorder Ulnar neuropathy Cervical radiculopathy Pes planus Microscopic hematuria Varicella zoster Alcoholism Coronary artery disease Spinal stenosis Osteoarthritis GERD (gastroesophageal reflux disease) Dyspnea on exertion Sternal fracture Allergic rhinitis COPD (chronic obstructive pulmonary disease) Allergic Family History Father No problems noted. Mother No problems noted. Social History Housing: Apartment Alcohol intake: current Alcohol intake frequency: does not drink Patient Tobacco Use Status: Never used Tobacco service: No Current occupational status: retired Cognitive needs: Yes (cane) Hearing needs: No Vision needs: Yes (reading) Questionnaire PHQ-9 Over the last 2 weeks, how often have you been bothered by any of the following problems? 1. Little interest or pleasure in doing things: not at all 2. Feeling down, depressed, or hopeless: not at all 3. Trouble falling or staying asleep, or sleeping too much: not at all 4. Feeling tired or having little energy: not at all 5. Poor appetite or overeating: not at all 6. Feeling bad about yourself - or that you are a failure or have let yourself or your family down: not at all 7. Trouble concentrating on things, such as reading the newspaper or watching television: not at all 8. Moving or speaking so slowly that other people could have noticed. Or the opposite - being so fidgety or restless that you have been moving around a lot more than usual: not at all 9. Thoughts that you would be better off or of hurting yourself in some way: not at all Total score: 0 Depression Screening Interpretation: Negative Depression Screening Done: Yes 50763 - PHQ-9 Billing: Yes Source: Developed by Drs. Latrell Huerta, Yaquelin Bryan, Kale Rivera and colleagues, with an educational krista from [employer]. Thrive Questionnaire Date Thrive assessed: 12/30/24 I am a: Patient What is your living situation today?: I have a steady place to live Within the past 12 months, did the food you bought not last and you didn't have the money to get more?: Never true Within the past 12 months, did you worry whether your food would run out before you got money to buy more?: Never true Do you have trouble paying for medicines?: No Do you have trouble getting transportation to medical appointments?: No Do you have trouble paying your heating and electricity bill?: No Do you have trouble taking care of your child, family member or friend?: No Do you have trouble with day-to-day activities such as bathing, preparing meals, shopping, managing finances, etc.?: No Are you currently unemployed and looking for a job?: No Are you interested in more education?: No Please select the resources that you would like help with: None Currently or been in a relationship where the following occur: No concerns reported THRIVE Score: 0 AUDIT C Alcohol Use Questionnaire (AUDIT-C) 1. How often do you have a drink containing alcohol?: Never 3. How often do you have six or more drinks on one occasion?: Never Total Score: 0 Score Reviewed/Action Taken: No JUVENCIO-7 AMB Questionnaire JUVENCIO-7 Date JUVENCIO - 7 assessed: 08/26/25 Feeling nervous, anxious, or on edge: 0 = Not at all Not being able to stop or control worryin = Not at all Worrying too much about different things: 0 = Not at all Trouble relaxin = Not at all Being so restless that it is hard to sit still: 0 = Not at all Becoming easily annoyed or irritable: 0 = Not at all Feeling afraid as if something awful might happen: 0 = Not at all Total JUVENCIO-7 score (0-4 normal; 5-9 mild; 10-14 moderate; 15-21 severe): 0 Source: Developed by Drs. Latrell Huerta, Yaquelin Bryan, Kale Rivera and colleagues, with an educational krista from [employer]. JUVENCIO-7 Assessment Billing JUVENCIO-7 Assessment Tool: JUVENCIO-7 Assessment 80181 Review of Systems Const Details: - Cardiovascular: Reports chest pain, denies radiation to arm, jaw, or back. - Respiratory: Denies dyspnea. - Gastrointestinal: Denies nausea, vomiting, or abdominal pain. - Neurological: Denies weakness. All systems reviewed & are unremarkable except as noted in HPI and below Physical exam (Primary Care) Vital Signs: Last Vital Signs Temp 97.9 F 02/03/25 14:34 Pulse 70 02/03/25 14:34 Resp 14 02/03/25 14:34 BP 131/63 02/03/25 14:34 Pulse Ox 99 02/03/25 14:34 Oxygen Delivery Method Room Air 02/03/25 14:34 Care Plan Goal for BP management: <140/90 at Goal BMI result Body Mass Index 26.8 BMI Assessment/Plan discussion: High BMI High, discussed plan: lifestyle, weight reduction, dietary, physical activity, alcohol moderation and other Tobacco/Smoking Status: Tobacco use Status Tobacco use date assessed 02/03/25 02/03/25 14:40 Patient Tobacco Use Status Never used Tobacco 02/03/25 14:40 PHQ-9: PHQ-9 Score PHQ-9: Total score 0 02/03/25 14:40 Depression Screening Interpretation: Negative Thrive Assessment: Date of Thrive Assessment Date Thrive assessed 12/30/24 02/03/25 14:40 Currently or been in a relationship where the following occur: No concerns reported Const Other: Appearance: Alert. Oriented X3. No acute distress. Head: Normal external exam. Normocephalic. Atraumatic. Eyes: Pupils are equal, round, and reactive to light. Extraocular movements intact. Conjunctiva and sclera normal. Eyelids normal. Ears: External auditory canal normal. Tympanic membranes normal. Throat: Pharynx normal. Uvula midline. Moist mucous membranes. Neck: Normal inspection. Neck supple. Full range of motion. No adenopathy. Thyroid Normal. No meningeal signs. No neck mass noted. Cardiovascular: Normal heart rate and rhythm. Heart sound normal. No murmurs noted. Pulses normal throughout. Respiratory: No respiratory distress. Painless inspiration. Breath sounds normal. No wheezes/rales/rhonchi noted. Chest nontender. No accessory muscle usage noted or decreased air movement noted. Abdomen: Soft and nontender. No distention noted. No organomegaly noted. Back: No costovertebral angle tenderness. Full range of motion noted. Skin: Skin warm and dry. Normal skin color. Normal skin turgor. No rashes/lesions/lacerations noted. Extremities: Slight swelling noted, plus one in both lower extremities. Extremities exhibit normal range of motion. Neuro: Oriented X 3. No motor deficit. No sensory deficit. Reflexes normal. Results Reviewed Results Reviewed: - Labs: ProBNP 902, mild elevation in troponin levels. - Imaging: Chest x-ray showed mild cardiac enlargement, negative for pneumonia. - EKG: Sinus bradycardia with new left bundle branch block, no ST elevations or depressions. Coding Level of Care Code Est Pt Level 4 (94001) Complex EM visit Add On G2211 Diagnoses Hospital discharge follow-up Z09 LBBB (left bundle branch block) I44.7 Elevated troponin level not due myocardial infarction R79.89 Additional Codes JUVENCIO-7 Assessment Billing - JUVENCIO-7 Assessment Tool: JVUENCIO-7 Assessment 18521 ([id number]) PHQ-9 - 10747 - PHQ-9 Billing: Yes ([id number]) Time Spent (min) 50 Assessment & Plan Assessment & Plan (1) Hospital discharge follow-up: Code(s): Z09 - Encounter for follow-up examination after completed treatment for conditions other than malignant neoplasm Category: Medical Plan: Patient had a negative workup at [facility] they did not feel like patient was having an acute ND although she does have a left bundle-branch block that is new, mild elevated chronic troponin and an elevated pro BNP. She reports she does get some fatigue when she is ambulating although denies any active chest pain, orthopnea. Will order stress test, echocardiogram and Cardiology referral/follow-up. (2) LBBB (left bundle branch block): Code(s): I44.7 - Left bundle-branch block, unspecified Category: Medical Plan: Patient had a negative workup at [facility] they did not feel like patient was having an acute ND although she does have a left bundle-branch block that is new, mild elevated chronic troponin and an elevated pro BNP. She reports she does get some fatigue when she is ambulating although denies any active chest pain, orthopnea. Will order stress test, echocardiogram and Cardiology referral/follow-up. (3) Elevated troponin level not due myocardial infarction: Code(s): R79.89 - Other specified abnormal findings of blood chemistry Category: Medical Plan: The patient had a mild elevation in troponin levels, which were stable across two readings. No acute coronary syndrome was suspected, and the patient was advised to follow up with her primary care provider. Plan Plan Patient was informed and verbally consented to the use of an ambient scribe for clinic note documentation during this visit. 1. Pleuritic Chest Pain The patient was evaluated for pleuritic chest pain, suspected to be due to costochondritis, given the tenderness over the left chest wall. A stress test and an ultrasound of the heart were ordered to further assess cardiac function. The patient was advised to follow up with a endoscopy specialty technician for further evaluation and management. 2. Sinus Bradycardia With Left Bundle Branch Block The EKG showed sinus bradycardia with a new left bundle branch block, likely secondary to premature ventricular contractions. The patient was advised to follow up with a endoscopy specialty technician for further evaluation. 3. Elevated Troponin Levels The patient had a mild elevation in troponin levels, which were stable across two readings. No acute coronary syndrome was suspected, and the patient was advised to follow up with her primary care provider. I discussed with the patient the findings from her recent emergency department visit, including the EKG results showing sinus bradycardia with a new left bundle branch block and the mild elevation in troponin levels. We talked about the suspected diagnosis of pleuritic chest pain due to costochondritis and the plan to conduct further cardiac evaluations, including a stress test and an ultrasound of the heart. I recommended a follow-up with a endoscopy specialty technician and advised her to return to the emergency department if she experiences any new or worsening chest pain. Orders: Orders CA echo transthoracic complete Today I25.10 - Atherosclerotic heart disease of [place] coronary artery without angina pectoris, I44.7 - Left bundle-branch block, unspecified, R06.09 - Other forms of dyspnea, R07.1 - Chest pain on breathing, R07.9 - Chest pain, unspecified NM cardiolite stress test Today I51.89 - Other ill-defined heart diseases XR chest 2V Today I25.10 - Atherosclerotic heart disease of [place] coronary artery without angina pectoris, I44.7 - Left bundle-branch block, unspecified, R06.09 - Other forms of dyspnea, R07.9 - Chest pain, unspecified CA stress test Today I25.10 - Atherosclerotic heart disease of [place] coronary artery without angina pectoris, I44.7 - Left bundle-branch block, unspecified, R06.09 - Other forms of dyspnea, R07.9 - Chest pain, unspecified UA CC w/rflx Micro + Cult Today Z00.00 - Encounter for general adult medical examination without abnormal findings NT Pro B Type Natriuretic Pept Today I25.10 - Atherosclerotic heart disease of [place] coronary artery without angina pectoris, I44.7 - Left bundle-branch block, unspecified, R06.09 - Other forms of dyspnea, R07.9 - Chest pain, unspecified Comprehensive Met. Panel Today Z00.00 - Encounter for general adult medical examination without abnormal findings Referrals Cardiology Referral I25.10 - Atherosclerotic heart disease of [place] coronary artery without angina pectoris, I44.7 - Left bundle-branch block, unspecified, R07.9 - Chest pain, unspecified Patient Instructions: - Follow up with a endoscopy specialty technician as scheduled. - Complete the stress test and ultrasound of the heart when contacted for appointments. - Return to the emergency department if experiencing new or worsening chest pain. - Get the blood work done at your convenience, no fasting required.
[2025-02-03 14:34] VITALS: BP 131/63; PULSE 70; RESP 14; TEMP 36.6; O2SAT 99; BMI 26.8
== END 2025-02-03 15:05 | disposition home or self-care (01) ==
LOC: HO.HMCSH 14:32
PROVIDERS: PCP Physician Assistant Medical; Visit Provider Physician Assistant Medical
DX: Z09 Encounter for follow-up examination after completed treatment for conditions other than malignant neoplasm (principal); I44.7 Left bundle-branch block, unspecified; R79.89 Other specified abnormal findings of blood chemistry

== ENCOUNTER → 2025-02-03 14:32 | Outpatient (BNVA) | payer MEDICARE, OTHER, SELFPAY | PROVIDERS: PCP Physician Assistant Medical; Visit Provider Physician Assistant Medical | DX: I44.7 Left bundle-branch block, unspecified (principal); I25.10 Atherosclerotic heart disease of native coronary artery without angina pectoris; I51.7 Cardiomegaly; J44.9 Chronic obstructive pulmonary disease, unspecified; K21.9 Gastro-esophageal reflux disease without esophagitis; M81.0 Age-related osteoporosis without current pathological fracture; R00.0 Tachycardia, unspecified; R79.89 Other specified abnormal findings of blood chemistry; Z09 Encounter for follow-up examination after completed treatment for conditions other than malignant neoplasm; Z79.899 Other long term (current) drug therapy | CPT/HCPCS: 96127; 99212 ==

== ENCOUNTER 2025-02-10 15:37 | Outpatient (AMB) | payer MEDICARE, OTHER, SELFPAY ==
--- NOTE | 2025-02-10 15:39 | A.OFFVIS_ITS ---
Vital Signs 02/10/25 15:40 Height 4 ft 11.25 in Weight 132 lb BMI 26.4 BP 110/62 Blood Pressure Location Rt brachial Position Sitting Pulse 74 Pulse Source Pulse Oximeter Pulse Oximetry (%) 95 Oxygen Delivery Method Room Air Intake Visit Reasons: copd Intake Note: pt is here for follow up of ER, she states she gets out of breath easily. 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 offered & declined Allergies iodine (Iodine) Allergy (Mild, Verified 02/10/25 16:03) SWELLING WITH CONTRAST DYE IV contrast dye Allergy (Severe, Uncoded 02/10/25 16:03) throat closed up codeine Allergy (Unknown, Uncoded 02/10/25 16:03) stomach upset Medication List - Last Reconciled 02/10/25 by Fabian Sanabria MD albuterol sulfate 90 mcg/actuation (Ventolin HFA) 2 puffs inhalation Q4-6H PRN 30 days amoxicillin 2,000 mg PO ONCE cetirizine 10 mg PO DAILY fluticasone propion-salmeterol 100-50 mcg/dose (Advair Diskus) 1 inh inhalation Q12H 30 days fluticasone propionate 50 mcg/actuation 1 spray intranasal DAILY hydroxyzine HCl 25 mg PO BID PRN ibuprofen 800 mg PO TID PRN memantine 10 mg PO BID 90 days omeprazole 20 mg PO QAM propranolol 20 mg PO BID 90 days raloxifene 60 mg PO DAILY sertraline 200 mg (2 x 100 mg) PO DAILY 90 days Do you need a note to return to daycare/school/sports/work: No HPI HPI copd: Details: [place], IS 89 YEARS OLD VERY ALERT AND PLEASANT LADY. SHE WAS TAKEN TO THE EMERGENCY ROOM OF [facility] BUT TO 10 DAYS AGO BECAUSE SHE HAD PAIN IN THE LT. CHEST. SHE TELLS ME THAT THE WORKUP WAS ALL NEGATIVE AND SHE WAS TOLD THAT SHE PROBABLY JUST HAD A PULLED MUSCLE. SHE CAME JUST TO BE CHECKED. BREATHING IS GOOD SHE HAS OCCASIONAL COUGH AND HAS HARD TIME TO BRING UP THE PHLEGM. DENIES ANY WHEEZING. SHE WALKS AROUND WITH A CANE USUAL. SHE SAY IS THAT SHE HAS A PORTABLE NEBULIZER AT HOME, AND ONCE IN A WHILE SHE USES SOLUTION IN THAT WHICH HELPS TO BRING UP THE MUCUS . ( SHE WAS NOT ABLE TO EXPLAINED COMPLETELY WHAT BRANDS IT IS, AND NOW SHE IS GOING TO SEND US A PICTURE OF THAT) [facility]LY [facility], [facility] Medical History Elevated troponin level not due myocardial infarction Hospital discharge follow-up Intermittent chest pain LBBB (left bundle branch block) Preventative health care Unstable balance Elevated TSH History of mammogram (~08/25/22) Mild cognitive impairment Asthma Pulmonary nodule Major depressive disorder Ulnar neuropathy Cervical radiculopathy Pes planus Microscopic hematuria Varicella zoster Alcoholism Coronary artery disease Spinal stenosis Osteoarthritis GERD (gastroesophageal reflux disease) Dyspnea on exertion Sternal fracture Allergic rhinitis COPD (chronic obstructive pulmonary disease) Allergic Family History Father No problems noted. Mother No problems noted. Social History Housing: Apartment Alcohol intake: current Alcohol intake frequency: does not drink Patient Tobacco Use Status: Never used Tobacco service: No Current occupational status: retired Cognitive needs: Yes (cane) Hearing needs: No Vision needs: Yes (reading) Review of Systems Const All systems reviewed & are unremarkable except as noted in HPI and below Eyes Reports no additional complaints ENT Reports nasal congestion and Reports nasal discharge (Mild off and on) Card Denies chest pain, Denies irregular heart rhythm and Denies leg edema Resp Reports as per HPI GI Reports no additional complaints Reports no additional complaints Musc Reports no additional complaints Skin/Breast Reports system reviewed and no additional complaints, except as documented Neuro Reports no additional complaints Psych Reports no additional complaints Physical Exam Vital Signs: Last Vital Signs Pulse 74 02/10/25 15:40 BP 110/62 02/10/25 15:40 Pulse Ox 95 02/10/25 15:40 Oxygen Delivery Method Room Air 02/10/25 15:40 BMI result Body Mass Index 26.4 Const General: healthy appearing, comfortable, no acute distress, alert and awake Orientation/consciousness: patient oriented x3 HEENT Head: Yes normal to inspection General nose exam: No nasal polyps present, No nasal discharge present and Other nasal findings present (Mild nasal congestion) Face and sinus: Yes sinuses nontender Mouth: oropharynx normal Throat: Yes posterior oropharynx normal Eyes General: appearance normal, both eyes and all related structures Neck Neck: Yes normal visual inspection, Yes no lymphadenopathy, Yes trachea midline and Yes no JVD Thyroid: Thyroid normal Chest Chest palpation & inspection: normal inspection of the chest, normal palpation of entire chest wall and no tenderness Resp Other: Percussion note resonant, has good breath sounds on both sides. No audible wheezes, rhonchi or crepitations Cardio Palpation: normal PMI Rate: regular rate Rhythm: regular rhythm Heart sounds: no gallops and no murmurs GI Palpation (GI): Soft to palpation, nontender, No hepatosplenomegaly present and no masses Auscultation: normal bowel sounds Back/Spine/Pelvis Thoracic/Lumbar Spine: thoracic and lumbar spine normal to inspection Skin General skin exam: no rashes or lesions noted Neuro General: patient oriented x3 and no focal motor deficits Cranial nerves: Yes CN's II-XII intact bilaterally Extrem General: Yes normal to inspection, Yes no clubbing, cyanosis or edema and Yes no calf tenderness Psych Speech and movement: Normal speech and movement present Assessment & Plan Assessment & Plan (1) COPD (chronic obstructive pulmonary disease): Comment: MILD ASTHMA/COPD, MANIFESTED MAINLY BY COUGH AND MILD OCCASIONAL WHEEZING ESPECIALLY IN A.M. HOURS. REMAINS WELL CONTROLLED WITH MINIMAL TREATMENT. Code(s): J44.9 - Chronic obstructive pulmonary disease, unspecified Category: Medical Plan: CONTINUE TO USE ADVAIR DISKUS 100-51 INHALATION B.I.D. ALBUTEROL HFA 2 PUFFS Q 4-6 HOURS ONLY P.R.N. I WOULD ALSO PRESCRIBED ALBUTEROL SOLUTION 1.25 MG IN 3 MALE TO USE IN THE NEBULIZER Q 6 HOURS P.R.N. AN SHE IS GOING TO SEND THE PICTURE OF HER NEBULIZERS SO THAT WE CAN CONFIRM THAT THIS IS THE RIGHT EQUIPMENT (2) Allergic: Comment: PATIENT DOES HAVE CHRONIC INTERMITTENT NASAL CONGESTION AND POSTNASAL DISCHARGE SECONDARY TO ALLERGIC RHINITIS. CURRENTLY IT IS UNDER CONTROL . Code(s): T78.40XA - Allergy, unspecified, initial encounter Category: Medical Plan: CONTINUE PRESENT MEDS ( FLONASE 1 SPRAY EACH NOSTRIL DAILY AND CETRAZINE 10 MG DAILY PRN ) (3) Sternal fracture: Comment: ACCIDENTAL FALL AND STERNAL FRACTURE,IN JULY 2021 , NOW HEALED WELL , Code(s): S22.20XA - Unspecified fracture of sternum, initial encounter for closed fracture Category: Medical Plan: OCCASIONAL ANTERIOR CHEST DISCOMFORT OR PAIN IS PROBABLY DUE TO THIS OLD HEALED FRACTURE OF THE STERNAL BONE . ADVISE THAT SHE MAY TAKE TYLENOL 2 TABLETS ALTERNATIVELY ADVAIR 1 TABLET Q 6 HOURS P.R.N.. Medications: Changed From ibuprofen 800 mg PO TID 90 tabs 1RF To ibuprofen 800 mg PO TID PRN Coding Level of Care Code Est Pt Level 3 (61918) Diagnoses COPD (chronic obstructive pulmonary disease) J44.9 Allergic T78.40XA Sternal fracture S22.20XA
[2025-02-10 15:40] VITALS: BP 110/62; PULSE 74; O2SAT 95; BMI 26.4
== END 2025-02-10 16:02 | disposition home or self-care (01) ==
LOC: HO.HPS 15:38
PROVIDERS: PCP Internal Medicine; Visit Provider Internal Medicine
DX: J44.9 Chronic obstructive pulmonary disease, unspecified (principal); T78.40XA Allergy, unspecified, initial encounter; S22.20XA Unspecified fracture of sternum, initial encounter for closed fracture
CPT/HCPCS: 99213

== ENCOUNTER → 2025-02-10 15:37 | Outpatient (BNVA) | payer MEDICARE, OTHER, SELFPAY | PROVIDERS: PCP Internal Medicine; Visit Provider Internal Medicine | DX: J44.9 Chronic obstructive pulmonary disease, unspecified (principal); T78.40XA Allergy, unspecified, initial encounter; S22.20XD Unspecified fracture of sternum, subsequent encounter for fracture with routine healing | CPT/HCPCS: 99212 ==

== ENCOUNTER 2025-03-06 11:24 | Outpatient (AMB) | payer MEDICARE, OTHER, SELFPAY ==
[2025-03-06 11:39] VITALS: BP 100/70; PULSE 66; RESP 16; TEMP 36.7; O2SAT 95; BMI 26.4
--- NOTE | 2025-03-06 11:39 | AM.OFFWIN_ITS ---
Intake Vital Signs 03/06/25 11:39 Height 4 ft 11.25 in Weight 132 lb BMI 26.4 BP 100/70 Blood Pressure Location Lt brachial Position Sitting Respiration 16 Pulse 66 Pulse Source Pulse Oximeter Temp 98.0 F Temp Source Oral Pulse Oximetry (%) 95 Oxygen Delivery Method Room Air Intake Visit Reasons: EP-uti Intake Note: Pt is here today c/o urgency upon urine x2days Patient Tobacco Use Status: Never used Tobacco Allergies iodine (Iodine) Allergy (Mild, Verified 03/06/25 11:42) SWELLING WITH CONTRAST DYE IV contrast dye Allergy (Severe, Uncoded 03/06/25 11:42) throat closed up codeine Allergy (Unknown, Uncoded 03/06/25 11:42) stomach upset HPI HPI Comments History of Present Illness Details History - The patient is an 89-year-old female p resenting with a suspected urinary tract infection (UTI). - The patient reports increased frequenc y of urination and a persistent unusual sensation post-urination, which she associates with previous UTIs. - Symptoms have been present for 2 days without associated back pain, abdominal pain, or fever. Review of Systems - Genitourinary: Reports increased frequ ency of urination and unusual sensation post-urination. Denies dysuria, back pain, abdominal pain, or fever. All systems reviewed and are unremarkable except as noted in HPI Physical Exam General: Cooperative, healthy appearing, comfortable, no acute distress and well developed Orientation: Patient oriented x3 Limitations: No limitations Head: Normal to inspection Ears: Hearing grossly normal bilaterally Face and sinus: Normal facial exam Neck: Normal visual inspection and Yes full ROM Respiratory: Normal respiratory effort and able to speak in complete sentences. Skin: No rashes or lesions noted Neuro: Patient oriented x3 [facility] Medical History Elevated troponin level not due myocardial infarction Hospital discharge follow-up Intermittent chest pain LBBB (left bundle branch block) Preventative health care Unstable balance Elevated TSH History of mammogram (~08/25/22) Mild cognitive impairment Asthma Pulmonary nodule Major depressive disorder Ulnar neuropathy Cervical radiculopathy Pes planus Microscopic hematuria Varicella zoster Alcoholism Coronary artery disease Spinal stenosis Osteoarthritis GERD (gastroesophageal reflux disease) Dyspnea on exertion Sternal fracture Allergic rhinitis COPD (chronic obstructive pulmonary disease) Allergic Family History Father No problems noted. Mother No problems noted. Social History Housing: Apartment Alcohol intake: current Alcohol intake frequency: does not drink Patient Tobacco Use Status: Never used Tobacco service: No Current occupational status: retired Cognitive needs: Yes (cane) Hearing needs: No Vision needs: Yes (reading) Physical Exam Vital Signs: Last Vital Signs Temp 98.0 F 03/06/25 11:39 Pulse 66 03/06/25 11:39 Resp 16 03/06/25 11:39 BP 100/70 03/06/25 11:39 Pulse Ox 95 03/06/25 11:39 Oxygen Delivery Method Room Air 03/06/25 11:39 BMI result Body Mass Index 26.4 Results AMB Urinalysis, Automated UA Leukoctes 500 Dinorah/uL Last Edit by Cailin Perry CMA on 03/06/25 11:45 UA Nitrite Negative Last Edit by Cailin Perry CMA on 03/06/25 11:45 UA Urobilinogen 0.2 mg/dL Last Edit by Cailin Perry CMA on 03/06/25 11:45 UA Protein 0 mg/dL Last Edit by Cailin Perry CMA on 03/06/25 11:45 UA pH 7.0 Last Edit by Cailin Perry CMA on 03/06/25 11:45 UA Blood 200 Jakub/uL Last Edit by Cailin Perry CMA on 03/06/25 11:45 UA Specific [place] 1.010 Last Edit by Cailin Perry CMA on 03/06/25 11:45 UA Ketone Negative Last Edit by Cailin Perry CMA on 03/06/25 11:45 UA Bilirubin 0 mg/dL Last Edit by Cailin Perry CMA on 03/06/25 11:45 UA Glucose 0 mg/dL Last Edit by Cailin Perry CMA on 03/06/25 11:45 Results Reviewed Results Reviewed: Laboratory Last Values Urine pH (Auto) 7.0 03/06/25 11:35 Specific [place] (Auto) 1.010 03/06/25 11:35 Urine Protein (Auto) 0 mg/dL 03/06/25 11:35 Glucose (UA)(Auto) 0 mg/dL 03/06/25 11:35 Urine Ketones (Auto) Negative 03/06/25 11:35 Urine Blood (Auto) 200 Jakub/uL 03/06/25 11:35 Urine Nitrite (Auto) Negative 03/06/25 11:35 Urine Bilirubin (Auto) 0 mg/dL 03/06/25 11:35 Urine Urobilinogen (Auto) 0.2 mg/dL 03/06/25 11:35 Leukocyte Esterase (Auto) 500 Dinorah/uL 03/06/25 11:35 Assessment & Plan Assessment & Plan (1) UTI (urinary tract infection): Code(s): N39.0 - Urinary tract infection, site not specified Qualifiers: Urinary tract infection type: acute cystitis Hematuria presence: with hematuria Qualified Code(s): N30.01 - Acute cystitis with hematuria Plan: Plan - Initiate antibiotic therapy with Cefuroxime, which covers most common UTI pathogens. - Send urine sample for culture to confirm the infection and ensure appropriate antibiotic coverage. - Advise the patient to hold omeprazole and use Tums during antibiotic treatment to prevent interaction. - Prescription to be sent to [facility], with instructions to start the antibiotic as soon as possible. Patient was informed and verbally consented to the use of an ambient scribe for clinic note documentation during this visit. Orders: Orders Urine Culture Today Juany Bourgeois PA-C N39.0 - Urinary tract infection, site not specified AMB Urinalysis Automated Today Ilda Ordonez PA-C Z13.9 - Encounter for screening, unspecified Medications: New cefuroxime axetil 500 mg PO Q12H 10 tabs 0RF Juany Bourgeois PA-C Coding Level of Care Code Est Pt Level 3 (39127) Diagnoses Acute cystitis with hematuria N30.01 Urinary tract infection type: acute cystitis Hematuria presence: with hematuria
== END 2025-03-06 12:21 | disposition home or self-care (01) ==
PROVIDERS: PCP Internal Medicine; Visit Provider Physician Assistant
DX: Z13.9 Encounter for screening, unspecified (principal); N30.01 Acute cystitis with hematuria

== ENCOUNTER 2025-03-06 11:24 | Outpatient (REF) | payer MEDICARE, OTHER, SELFPAY | END 2025-03-06 11:25 | disposition home or self-care (01) | LOC: HO.LAB 11:24 | PROVIDERS: PCP Internal Medicine; Visit Provider Physician Assistant | DX: N30.01 Acute cystitis with hematuria (principal) | CPT/HCPCS: 81003; 87086; 87088; 87186; 99212 ==

== ENCOUNTER 2025-03-16 11:55 | Outpatient (AMB) | payer MEDICARE, OTHER, SELFPAY ==
--- NOTE | 2025-03-16 11:57 | A.OFFVIS_ITS ---
Intake Visit Reasons: 6 month Allergies iodine (Iodine) Allergy (Mild, Verified 03/16/25 12:02) SWELLING WITH CONTRAST DYE IV contrast dye Allergy (Severe, Uncoded 03/16/25 12:02) throat closed up codeine Allergy (Unknown, Uncoded 03/16/25 12:02) stomach upset Medication List - Last Reconciled 03/16/25 by Renetta Calzada, TERESA albuterol sulfate 90 mcg/actuation (Ventolin HFA) 2 puffs inhalation Q4-6H PRN 30 days albuterol sulfate 2.5 mg (6 mL) inhalation Q4-6H PRN 30 days cefuroxime axetil 500 mg PO Q12H cetirizine 10 mg PO DAILY fluticasone propion-salmeterol 100-50 mcg/dose (Advair Diskus) 1 inh inhalation Q12H 30 days fluticasone propionate 50 mcg/actuation 1 spray intranasal DAILY hydroxyzine HCl 25 mg PO BID PRN ibuprofen 800 mg PO TID PRN memantine 10 mg PO BID 90 days omeprazole 20 mg PO QAM propranolol 20 mg PO BID 90 days raloxifene 60 mg PO DAILY sertraline 200 mg (2 x 100 mg) PO DAILY 90 days HPI Comments Details: She was doing okay. Memory was about the same. No significant brain fog, able to focus and stay on task. Some occasional word finding difficulties. Driving without issue, no episodes of confusion or getting lost. Had one episode previously where she got lost driving. No headaches or dizziness. Feels off balance at times, left foot paresthesia. No falls. Sleep was okay. Mood was okay. She lives alone in apartment, doing cooking and cleaning. Staying active in [employer] and going to [employer]She was going to [employer] for two months later this winter. Had C spine MRI and EMG at [facility]. [facility] Medical History Elevated troponin level not due myocardial infarction Hospital discharge follow-up Intermittent chest pain LBBB (left bundle branch block) Preventative health care Unstable balance Elevated TSH History of mammogram (~08/25/22) Mild cognitive impairment Asthma Pulmonary nodule Major depressive disorder Ulnar neuropathy Cervical radiculopathy Pes planus Microscopic hematuria Varicella zoster Alcoholism Coronary artery disease Spinal stenosis Osteoarthritis GERD (gastroesophageal reflux disease) Dyspnea on exertion Sternal fracture Allergic rhinitis COPD (chronic obstructive pulmonary disease) Allergic Family History Father No problems noted. Mother No problems noted. Social History Housing: Apartment Alcohol intake: current Alcohol intake frequency: does not drink Patient Tobacco Use Status: Never used Tobacco service: No Current occupational status: retired Cognitive needs: Yes (cane) Hearing needs: No Vision needs: Yes (reading) Review of Systems Const Denies chills, Denies daytime sleepiness, Denies difficulty sleeping, Denies fatigue, Denies fever(s), Denies frequent falls, Denies headache(s), Denies increased appetite, Denies poor appetite, Denies snoring, Denies weakness, Denies weight gain and Denies weight loss Eyes Denies loss of vision ENT Denies vertigo, Reports dizziness, Denies headache(s) and Denies neck pain Card Denies chest pain at rest, Denies chest pain with activity, Denies syncope, Denies leg edema, Denies palpitations, Denies dyspnea and Denies dyspnea on exertion Resp Denies cough, Denies dyspnea, Denies dyspnea on exertion and Denies snoring GI Denies abdominal pain, Denies constipation, Denies heartburn, Denies diarrhea and Denies nausea Denies urinary frequency, Denies urinary incontinence and Denies urinary urgency Musc Denies abnormal gait, Denies back pain, Denies myalgias, Denies arthralgias, Denies neck pain, Denies numbness and Denies tingling Neuro Denies abnormal gait, Denies vertigo, Reports dizziness, Denies syncope, Denies frequent falls, Denies headache(s), Denies lack of coordination, Denies loss of vision, Reports memory loss, Denies numbness, Denies Other visual disturbances, Denies restless legs, Denies seizure-like activity, Denies tingling, Denies paresthesias, Denies tremor(s) and Denies weakness Psych Denies anxiety, Reports depression, Denies auditory hallucinations, Reports mem ory loss and Denies visual hallucinations Endo Denies fatigue and Denies palpitations Physical Exam Const Other: General Appearance:? normal, in no acute distress. Heart:? S1, S2 normal, no murmurs. Lungs:? clear anteriorly and posteriorly. Musculoskeletal:? normal. Extremities:? no edema. Psych:? alert, as below. Neuro Other: Abnormal Neurological Findings:?MMSE 25/30. Mental Status: alert, as below. Cranial Nerves: Pupils are equal, round, and reactive to light. External ocular muscles are intact. Visual youngblood are full, no ptosis. Face is symmetrical, no facial weakness or droop. Facial sensations are normal. Tongue protrudes in midline. Palate elevates symmetrically. Shoulder shrugging is normal Motor Examination: Normal muscle tone, bulk and strength. No atrophy or fasciculations. No drift of the extended upper extremities. DTR 2+. Plantars are flexor. Sensory Exam: Normal light touch, temperature, pinprick, vibration, and joint-position sensations. Rhomberg sign is absent. Coordination: No ataxia. No titubation. Gait Exam: Within normal limits. Cerebellar Signs: [id number] is okay. Extrapyramidal System: No tremor, rigidity with normal facial expressions. No bradykinesia. No bradyphrenia. Normal arm swing and posture. No propulsion or retropulsion. Speech: Normal. MMSE Level of Consciousness: Alert. Orientation: Knows correct year, month, date, day and season. Knows correct city, county and state. Knows correct location and floor. Registration: Able to register 3 objects. Attention: Serial 7's unable to do. Recall: Able to recall 3 out of 3 objects. Language: Normal spontaneous speech, fluency, repetition, naming, comprehension, reading, and writing. Total Score: 25/30. Results Reviewed Results Reviewed: EEG 10/13/2021: WNL Assessment & Plan Assessment & Plan (1) Mild cognitive impairment: Comment: With memory loss Code(s): G31.84 - Mild cognitive impairment of uncertain or unknown etiology Category: Medical Plan: Continue memantine 10mg 1 tablet twice a day. Stay physically and socially active. Coding Level of Care Code Est Pt Level 4 (60450) Diagnoses Mild cognitive impairment G31.84
== END 2025-03-16 12:11 | disposition home or self-care (01) ==
LOC: HO.HSM 11:56
PROVIDERS: PCP Internal Medicine; Referring Provider Internal Medicine; Visit Provider Registered Nurse
DX: G31.84 Mild cognitive impairment of uncertain or unknown etiology (principal)
CPT/HCPCS: 99214

== ENCOUNTER → 2025-03-16 11:55 | Outpatient (BNVA) | payer MEDICARE, OTHER, SELFPAY | PROVIDERS: PCP Internal Medicine; Referring Provider Internal Medicine; Visit Provider Registered Nurse | DX: G31.84 Mild cognitive impairment of uncertain or unknown etiology (principal) | CPT/HCPCS: 99212 ==

== ENCOUNTER 2025-04-05 18:05 | Emergency (ER) | payer MEDICARE, OTHER, SELFPAY ==
--- NOTE | ~2025-04-05 | CT_ITS ---
CLINICAL HISTORY: trauma CT head without contrast Comparison: None provided Findings: No intra-axial mass, midline shift, hydrocephalus, or acute hemorrhage. Right frontal 8 mm calcified meningioma. Moderate atrophy light chain. Mild nonspecific white matter hypodensity. The visualized paranasal sinuses and mastoid air cells are normal. Enophthalmos. Orbits otherwise unremarkable. There is no acute fracture. IMPRESSION: Mild left forehead soft tissue swelling. No acute intracranial findings. This document has been electronically signed by: Bernabe Leon MD on 04/05/2025 21:49:04
--- NOTE | ~2025-04-05 | CT_ITS ---
CLINICAL HISTORY: trauma CT cervical spine without contrast Comparison: None provided Findings: Grade 1 degenerative spondylolisthesis C4-C5. Moderate to severe foraminal stenosis throughout the cervical spine. Moderate to severe disc and facet disease throughout the cervical spine. Mild old superior endplate compression fractures T1 and T2. No cervical fracture. Visualized intracranial contents are unremarkable. Soft tissues of the neck are normal. Lung apices are clear. IMPRESSION: Degenerative spondylosis with no acute fracture. This document has been electronically signed by: Bernabe Leon MD on 04/05/2025 21:48:23
[2025-04-05 18:09] VITALS: BP 175/78; PULSE 61; RESP 16; TEMP 35.9; O2SAT 95; BMI 23.5
--- NOTE | 2025-04-05 18:12 | ED.GENADULT ---
HPI - General Adult General Chief complaint: Fall Stated complaint: fall and hit head Time Seen by Provider: 04/05/25 22:44 Source: patient Mode of arrival: ambulatory Limitations: no limitations History of Present Illness ED Provider: Dr. Tyesha Vega HPI narrative: Patient comes in the emergency room after having a mechanical fall at a gas station a proximally 3 hours prior to arrival. According to the patient, she hit the left side of her head, did not lose consciousness, does not take blood thinners. Patient denies any headache, denies neck pain. Patient has a visitor to her side, states that the patient has fallen 3 times this week. According to the patient, she did not not want to tell us because we would make a big deal out of it. Patient states that there is a reason behind each fall, all mechanical. Patient states that she feels well, walks at baseline with a cane, states that she is not feeling any chest pain, dizziness, weakness, lightheadedness. Patient states that she feels completely normal Related Data Home Medications ?Medication ?Instructions ?Recorded ?Confirmed cetirizine 10 mg tablet 10 mg PO DAILY 04/13/20 03/16/25 ibuprofen 800 mg tablet 800 mg PO TID PRN 02/10/25 02/10/25 Previous Rx's ?Medication ?Instructions ?Recorded hydroxyzine HCl 25 mg tablet 25 mg PO BID PRN itching #14 tabs 03/04/21 fluticasone 100 mcg-salmeterol 50 1 inh inhalation Q12H COPD 30 days 07/28/24 mcg/dose blistr powdr for #60 ea inhalation (Advair Diskus) albuterol sulfate 90 mcg/actuation 2 puff inhalation Q4-6H PRN 12/16/24 aerosol inhaler (Ventolin HFA) shortness of breath or wheezing 30 days #8.5 grams memantine 10 mg tablet 10 mg PO BID 90 days #180 tabs 02/04/25 omeprazole 20 mg capsule,delayed 20 mg PO QAM #90 caps 02/04/25 release propranolol 20 mg tablet 20 mg PO BID 90 days #180 tabs 02/04/25 raloxifene 60 mg tablet 60 mg PO DAILY #90 tabs 02/04/25 sertraline 100 mg tablet 200 mg (2 x 100 mg) PO DAILY 90 02/04/25 days #180 tabs albuterol sulfate 1.25 mg/3 mL 2.5 mg (6 mL) inhalation Q4-6H PRN 02/11/25 solution for nebulization shortness of breath or wheezing 30 days #90 mL fluticasone propionate 50 1 spray intranasal DAILY #16 grams 02/14/25 mcg/actuation nasal spray,suspension cefuroxime axetil 500 mg tablet 500 mg PO Q12H #10 tabs 03/06/25 cefuroxime axetil 250 mg tablet 250 mg PO BID #14 tabs 04/05/25 Allergies Allergy/AdvReac Type Severity Reaction Status Date / Time iodine (Iodine) Allergy Mild SWELLING Verified 04/05/25 18:13 WITH CONTRAST DYE IV contrast dye Allergy Severe throat Uncoded 03/16/25 12:02 closed up codeine Allergy Unknown stomach Uncoded 03/16/25 12:02 upset Review of Systems Review of Systems: Constitutional : No Weight loss, No Fever, No Chills, No Night Sweats, No Fatigue, No Malaise ENT/Mouth : No Hearing loss, No Ear Pain, No Nasal Congestion, No Sinus Pain, No Hoarseness, No sore throat, No Rhinorrhea, No Swallowing Difficulty Eyes: No Eye Pain, No Swelling, No Redness, No Foreign Body, No Discharge, No Vision Changes Cardiovascular : No Chest Pain, No SOB, No Dyspnea on Exertion, No Orthopnea, No Edema, No Palpitations Respiratory : No Cough, No Sputum, No Wheezing, No Smoke Exposure, No Dyspnea Gastrointestinal : No Nausea, No Vomiting, No Diarrhea, No Constipation, No abdominal Pain, No Hematochezia, No Melena Genitourinary : no irregular bleeding, No Dysuria, No Urinary Frequency, No Hematuria, No Urinary Incontinence, No Urgency, No Flank Pain, No Urinary Flow Changes, No Hesitancy Musculoskeletal : Complaining of a mechanical fall, no pain, denies No joint pain, No Myalgias, No Joint Swelling Skin : Complaining of ecchymosis on the left side of the forehead No Skin Lesions, No rash Neuro : No Weakness, No Numbness, No Paresthesias, No Loss of Consciousness, No Dizziness, No Headache Psych : No Anxiety/Panic, No Depression, No SI/HI/AH/VH, No Social Issues, Heme/Lymph: No Bruising, No Bleeding,No Lymphadenopathy Endocrine : No Polyuria, No Polydipsia, No Temperature Intolerance [facility] Past Medical History Medical History Elevated troponin level not due myocardial infarction Hospital discharge follow-up Intermittent chest pain LBBB (left bundle branch block) Preventative health care Unstable balance Elevated TSH History of mammogram (~08/25/22) Mild cognitive impairment Asthma Pulmonary nodule Major depressive disorder Ulnar neuropathy Cervical radiculopathy Pes planus Microscopic hematuria Varicella zoster Alcoholism Coronary artery disease Spinal stenosis Osteoarthritis GERD (gastroesophageal reflux disease) Dyspnea on exertion Sternal fracture Allergic rhinitis COPD (chronic obstructive pulmonary disease) Allergic Family History Family History Father No problems noted. Mother No problems noted. Social History Social History Housing: Apartment Alcohol intake: current Alcohol intake frequency: does not drink Patient Tobacco Use Status: Never used Tobacco Smoked in Last 30 Days: No Use of substances other than those prescribed or required for medical reasons: No Advance Directives: No Advance Directives Information Provided: Yes service: No Current occupational status: retired Cognitive needs: Yes (cane) Hearing needs: No Vision needs: Yes (reading) Physical Exam ED Exam Exam: Appearance: Alert. Oriented X3. No acute distress. Patient ambulatory with her cane, normal steady gait at baseline for the patient Eyes: Pupils equal, round and reactive to light. ENT: Pharynx normal. Neck: Normal inspection. Neck supple. No lymph nodes noted. No crepitus CVS: Normal heart rate and rhythm. Pulses normal. Normal S1 and S2 Respiratory: No respiratory distress. Breath sounds normal. No Wheezing. No rales Abdomen: Soft and nontender. No rigidity. No distention. Skin: Skin warm and dry. Normal skin color. Normal skin turgor. Superficial abrasions and small ecchymosis on the left side of the forehead Extremities: No lower extremity edema. No Lacerations. No Rash Neuro: Oriented X 3. No motor deficit. No sensory deficit. Moving all extremities. No slurred speech. CN 2 through 12 grossly intact Psych: calm, cooperative, normal affect Vital Signs: Vital Signs - 24 hr 04/05/25 18:09 04/05/25 21:54 04/05/25 23:51 Temperature 96.6 F L 98.1 F 97.7 F Pulse Rate 61 57 60 Respiratory Rate 16 16 16 Blood Pressure 175/78 H 162/62 H 116/67 Pulse Oximetry 95 96 95 Oxygen Delivery Method Room Air Room Air 04/06/25 00:01 04/06/25 00:03 Temperature 97.7 F 97.7 F Pulse Rate 60 60 Respiratory Rate 16 16 Blood Pressure 116/67 116/67 Pulse Oximetry 95 95 Oxygen Delivery Method BMI result Body Mass Index 23.5 Course Course Course Narrative: Medical screening exam performed. Please refer to detailed history, exam, evaluation, and management by primary provider. Patient with trip and fall, struck left side of the head on curb several hours prior to arrival. No LOC. No prodromal symptoms. Unknown last tetanus. Denies any pain at this time. No anticoagulants. Medications Administered Discontinued Medications Generic Name Dose Route Start Last Admin Trade Name Freq PRN Reason Stop Dose Admin Cefuroxime Axetil 250 mg 04/05/25 23:45 04/05/25 23:58 Cefuroxime Axetil 250 Mg Tablet PO 04/05/25 23:46 250 mg ONCE ONE Administration Diphtheria/Tetanus/Acell Pertussis 0.5 ml 04/05/25 18:13 04/05/25 22:01 Diphth,Pertus(Acell),Tet Adult 0.5 Ml Syringe IM 04/05/25 18:14 0.5 ml .ONCE ONE Administration Medical Decision Making Medical Decision Making [facility] Narrative: Head CT of the head does not show any acute intracranial abnormality. Patient does have left forehead soft tissue swelling A CT scan of the cervical spine shows degenerative spondylosis with no acute fracture Patient states that she is asymptomatic. Given her history of 3 recent falls including today, urinalysis pending. Patient denies any urinary symptoms UTI positive, I reviewed patient's records, microbiology sensitive to on antibiotics, patient has a history of recurrent UTIs. Differential Diagnosis Differential Diagnoses: The differential diagnosis associated with the presentation includes (Mechanical falls, UTI, weakness, deconditioning) Lab Data Labs: Lab Results 04/05/25 Range/Units 23:14 Urine Color Yellow Urine Appearance Clear Urine pH 6.5 (5.0-9.0) Ur Specific [place] 1.015 (1.005-1.025) Urine Protein Negative (Neg-Trace) mg/dL Urine Glucose (UA) Negative (Negative) mg/dL Urine Ketones Negative (Negative) mg/dL Urine Blood Trace H (Negative) Urine Nitrite Negative (Negative) Ur Leukocyte Esterase Moderate (2+) H (Negative) Urine RBC 6-10 H (0-2) /HPF Urine WBC 11-20 H (0-5) /HPF Ur Squamous Epith Cells 3-5 (0-2) /HPF Urine Bacteria None Seen (None Seen) Hyaline Casts 0-2 (0-2) /LPF Independent Interpretation I performed an independent interpretation of an: CT Scan Radiology Impression Discussion of test interpretation with radiology: I have reviewed the radiologist's reading. Radiologist Impression: Head CT: No intra-axial mass, midline shift, hydrocephalus, or acute hemorrhage. Right frontal 8 mm calcified meningioma. Moderate atrophy light chain. Mild nonspecific white matter hypodensity. The visualized paranasal sinuses and mastoid air cells are normal. Enophthalmos. Orbits otherwise unremarkable. There is no acute fracture. IMPRESSION: Mild left forehead soft tissue swelling. No acute intracranial findings Cervical spine CT: Grade 1 degenerative spondylolisthesis C4-C5. Moderate to severe foraminal stenosis throughout the cervical spine. Moderate to severe disc and facet disease throughout the cervical spine. Mild old superior endplate compression fractures T1 and T2. No cervical fracture. Visualized intracranial contents are unremarkable. Soft tissues of the neck are normal. Lung apices are clear. IMPRESSION: Degenerative spondylosis with no acute fracture. Discharge Plan Discharge Clinical Impression: Multiple falls, Traumatic ecchymosis of head, Acute UTI Patient Disposition: Home, Self-Care Instructions: Fall Prevention for Older Adults (ED), Facial Contusion (ED), Urinary Tract Infection in Older Adults (ED) Additional Instructions: Please follow-up with your primary care physician tomorrow. If you have any worsening or new symptoms, please return to the emergency room or call 911 Prescriptions: New cefuroxime axetil 250 mg tablet 250 mg PO BID Qty: 14 0RF No Action fluticasone propion-salmeterol [Advair Diskus] 100-50 mcg/dose blister with device 1 inh inhalation Q12H 30 Days Qty: 60 5RF memantine 10 mg tablet 10 mg PO BID 90 Days Qty: 180 3RF omeprazole 20 mg capsule,delayed release(DR/EC) 20 mg PO QAM Qty: 90 3RF propranolol 20 mg tablet 20 mg PO BID 90 Days Qty: 180 3RF raloxifene 60 mg tablet 60 mg PO DAILY Qty: 90 3RF sertraline 100 mg tablet 200 mg PO DAILY 90 Days Qty: 180 3RF fluticasone propionate 50 mcg/actuation spray,suspension 1 spray intranasal DAILY Qty: 16 1RF cetirizine 10 mg tablet 10 mg PO DAILY hydroxyzine HCl 25 mg tablet 25 mg PO BID PRN (Reason: itching) Qty: 14 0RF albuterol sulfate [Ventolin HFA] 90 mcg/actuation HFA aerosol inhaler 2 puff inhalation Q4-6H PRN (Reason: shortness of breath or wheezing) 30 Days Qty: 8.5 3RF ibuprofen 800 mg tablet 800 mg PO TID PRN albuterol sulfate 1.25 mg/3 mL solution for nebulization 2.5 mg inhalation Q4-6H PRN (Reason: shortness of breath or wheezing) 30 Days Qty: 90 3RF cefuroxime axetil 500 mg tablet 500 mg PO Q12H Qty: 10 0RF Interventions: ED Discharge Assessment Last Done: 04/06/25 00:03 Discharge Date/Time: 04/06/25 00:03 Print Language: [place] Citizen
[2025-04-05 21:54] VITALS: BP 162/62; PULSE 57; RESP 16; TEMP 36.7; O2SAT 96
[2025-04-05] MEDS: Diphth,Pertus(ACell),Tet Adult 0.5 ML SYRINGE IM (22:01)
[2025-04-05 23:37] LABS: Appearance Urine Clear; Glucose Urine UA Negative (Negative); PH 6.5 (5.0-9.0); Specific Gravity - Urine 1.015 (1.005-1.025); UMIC TRIGGER UACC YES
[2025-04-05 23:43] LABS: UACC Culture Trigger YES
[2025-04-05 23:51] VITALS: BP 116/67; PULSE 60; RESP 16; TEMP 36.5; O2SAT 95
--- NOTE | 2025-04-06 | PC.NURSE ---
Reviewed discharge instructions with pt. pt verbalized understanding, no sign of distress upon discharge, medicated per jul.
[2025-04-06 00:01] VITALS: BP 116/67; PULSE 60; RESP 16; TEMP 36.5; O2SAT 95
[2025-04-06 00:03] VITALS: BP 116/67; PULSE 60; RESP 16; TEMP 36.5; O2SAT 95
== END 2025-04-06 00:03 | disposition home or self-care (01) ==
PROVIDERS: Emergency Provider Emergency Medicine; PCP Internal Medicine
DX: S00.83XA Contusion of other part of head, initial encounter (principal); N39.0 Urinary tract infection, site not specified; J44.9 Chronic obstructive pulmonary disease, unspecified; G31.84 Mild cognitive impairment of uncertain or unknown etiology; W01.0XXA Fall on same level from slipping, tripping and stumbling without subsequent striking against object, initial encounter; Z91.81 History of falling; Y93.89 Activity, other specified; Y92.524 Gas station as the place of occurrence of the external cause; Y99.8 Other external cause status; Z86.79 Personal history of other diseases of the circulatory system
CPT/HCPCS: 70450; 72125; 81001; 87086; 90471; 90715; 99284

== ENCOUNTER → 2025-04-05 18:12 | Outpatient (BNV) | payer MEDICARE, OTHER, SELFPAY | PROVIDERS: PCP Internal Medicine; Visit Provider Radiology Diagnostic Radiology | DX: M47.812 Spondylosis without myelopathy or radiculopathy, cervical region (principal); R22.0 Localized swelling, mass and lump, head; Z04.3 Encounter for examination and observation following other accident | CPT/HCPCS: 70450; 72125 ==

== ENCOUNTER 2025-04-28 13:10 | Outpatient (AMB) | payer MEDICARE, OTHER, SELFPAY ==
--- NOTE | 2025-04-28 13:47 | AM.OFFWIN_ITS ---
Intake Vital Signs 04/28/25 13:50 Weight 135 lb BP 120/78 Respiration 15 Pulse 62 Temp 98 F Temp Source Oral Pulse Oximetry (%) 97 Intake Visit Reasons: EP UTI? Patient Tobacco Use Status: Never used Tobacco Allergies iodine (Iodine) Allergy (Mild, Verified 04/05/25 18:13) SWELLING WITH CONTRAST DYE IV contrast dye Allergy (Severe, Uncoded 03/16/25 12:02) throat closed up codeine Allergy (Unknown, Uncoded 03/16/25 12:02) stomach upset Medication List - Last Reconciled 04/28/25 by Tania Nixon MD albuterol sulfate 90 mcg/actuation (Ventolin HFA) 2 puffs inhalation Q4-6H PRN 30 days albuterol sulfate 2.5 mg (6 mL) inhalation Q4-6H PRN 30 days cefuroxime axetil 250 mg PO BID cefuroxime axetil 500 mg PO Q12H cetirizine 10 mg PO DAILY fluticasone propion-salmeterol 100-50 mcg/dose (Wixela Inhub) 1 ea PO Q12H fluticasone propionate 50 mcg/actuation 1 spray intranasal DAILY hydroxyzine HCl 25 mg PO BID PRN ibuprofen 800 mg PO TID PRN memantine 10 mg PO BID 90 days omeprazole 20 mg PO QAM propranolol 20 mg PO BID 90 days raloxifene 60 mg PO DAILY sertraline 200 mg (2 x 100 mg) PO DAILY 90 days HPI EP UTI? HPI Details History of Present Illness The patient is an 89 year old female presenting with a suspected urinary tract infection. Recurrent Urinary Tract Infections: - The patient reports this is her third time seeking care for a suspected UTI, with two prior confirmed infections. - Her last UTI was at the end of February , about one and a half months ago. - She expresses a desire to avoid antibi otics due to experiencing brain fog with her previous treatment, which was cefuroxime. - For prevention, she reports drinking a lot of water and unsweetened cranberry juice. Genitourinary Symptoms: - Current symptoms are minimal, describe d as a little tiny feeling without any pain. - She reports urinary frequency and a t inkly stream. - The patient uses a pad, which may be c ontributing to local irritation, though she denies itching. Social History: - Travel: The patient is traveling to [facility] for two months, starting today. - Diet: She reports drinking a lot of wa ter and unsweetened cranberry juice. - Functional Status: She uses a pad for urinary leakage. Diagnostic Results: - Urinalysis: Negative for signs of infe ction. - Urinalysis: Positive for microscopic h ematuria. Problem List - Recurrent urinary tract infections - Microscopic hematuria - Urinary frequency Plan - Reassured the patient that her current urinalysis shows no signs of infection, and therefore, no antibiotics are needed at this time. - Recommended a referral to a urologist for further evaluation of microscopic hematuria and recurrent urinary symptoms. - Discussed that the patient can seek a urology consultation in [place], where she will be for the next two months. - Advised the patient to call if symptom s worsen, at which point an antibiotic could be prescribed. - Counseled the patient that her perinea l irritation may be due to pad use and advised her to remove the pad when at home. - Encouraged continued intake of water a nd unsweetened cranberry juice. Review of Systems - General: No fever no chills - Neurological: No headaches no dizziness - Ear nose throat: No sore throat no hearing difficulty no ear pain - Cardiovascular: No syncope, no chest pain, no palpitations - Gastrointestinal: No nausea vomiting or diarrhea Physical Exam General: No acute distress HEENT: No acute findings Neck: Supple, slight irritation due to a teeny bit of blood Respiratory system: Able to talk in full sentences, no audible wheeze Gastrointestinal: No pain suprapubic Extremities: No new findings BOTTOM BUFFER: Alert awake oriented x3 motor intact Skin: Normal turgor [facility] Medical History Elevated troponin level not due myocardial infarction Hospital discharge follow-up Intermittent chest pain LBBB (left bundle branch block) Preventative health care Unstable balance Elevated TSH History of mammogram (~08/25/22) Mild cognitive impairment Asthma Pulmonary nodule Major depressive disorder Ulnar neuropathy Cervical radiculopathy Pes planus Microscopic hematuria Varicella zoster Alcoholism Coronary artery disease Spinal stenosis Osteoarthritis GERD (gastroesophageal reflux disease) Dyspnea on exertion Sternal fracture Allergic rhinitis COPD (chronic obstructive pulmonary disease) Allergic Family History Father No problems noted. Mother No problems noted. Social History Housing: Apartment Alcohol intake: current Alcohol intake frequency: does not drink Patient Tobacco Use Status: Never used Tobacco service: No Current occupational status: retired Cognitive needs: Yes (cane) Hearing needs: No Vision needs: Yes (reading) Physical Exam Vital Signs: Last Vital Signs Temp 98 F 04/28/25 13:50 Pulse 62 04/28/25 13:50 Resp 15 04/28/25 13:50 BP 120/78 04/28/25 13:50 Pulse Ox 97 04/28/25 13:50 Results AMB Urinalysis, Automated UA Leukoctes 0 Dinorah/uL Last Edit by Cailin Perry CMA on 04/28/25 14:21 UA Nitrite Negative Last Edit by Cailin Perry CMA on 04/28/25 14:21 UA Urobilinogen 0.2 mg/dL Last Edit by Cailin Perry CMA on 04/28/25 14:21 UA Protein 0 mg/dL Last Edit by Cailin Perry CMA on 04/28/25 14:21 UA pH 6.0 Last Edit by Cailin Perry CMA on 04/28/25 14:21 UA Blood 10 Jakub/uL Last Edit by Cailin Perry CMA on 04/28/25 14:21 UA Specific [place] 1.005 Last Edit by Cailin Perry CMA on 04/28/25 14:21 UA Ketone Negative Last Edit by Cailin Perry CMA on 04/28/25 14:21 UA Bilirubin 0 mg/dL Last Edit by Cailin Perry CMA on 04/28/25 14:21 UA Glucose 0 mg/dL Last Edit by Cailin Perry CMA on 04/28/25 14:21 Results Reviewed Results Reviewed: Laboratory Last Values Urine pH (Auto) 6.0 04/28/25 14:19 Specific Bill[place]ley (Auto) 1.005 04/28/25 14:19 Urine Protein (Auto) 0 mg/dL 04/28/25 14:19 Glucose (UA)(Auto) 0 mg/dL 04/28/25 14:19 Urine Ketones (Auto) Negative 04/28/25 14:19 Urine Blood (Auto) 10 Jakub/uL 04/28/25 14:19 Urine Nitrite (Auto) Negative 04/28/25 14:19 Urine Bilirubin (Auto) 0 mg/dL 04/28/25 14:19 Urine Urobilinogen (Auto) 0.2 mg/dL 04/28/25 14:19 Leukocyte Esterase (Auto) 0 Dinorah/uL 04/28/25 14:19 Assessment & Plan Assessment & Plan (1) Microscopic hematuria: Comment: With a negative workup Code(s): R31.29 - Other microscopic hematuria Plan Problem List - Recurrent urinary tract infections - Microscopic hematuria - Urinary frequency Plan - Reassured the patient that her current urinalysis shows no signs of infection, and therefore, no antibiotics are needed at this time. - Recommended a referral to a urologist for further evaluation of microscopic hematuria and recurrent urinary symptoms. - Discussed that the patient can seek a urology consultation in [place], where she will be for the next two months. - Advised the patient to call if symptoms worsen, at which point an antibiotic could be prescribed. - Counseled the patient that her perineal irritation may be due to pad use and advised her to remove the pad when at home. - Encouraged continued intake of water and unsweetened cranberry juice. Orders: Orders AMB Urinalysis Automated Today Z13.9 - Encounter for screening, unspecified Coding Level of Care Code Est Pt Level 3 (80876) Diagnoses Microscopic hematuria R31.29
[2025-04-28 13:50] VITALS: BP 120/78; PULSE 62; RESP 15; TEMP 36.6; O2SAT 97
== END 2025-04-28 14:55 | disposition home or self-care (01) ==
PROVIDERS: PCP Internal Medicine; Visit Provider Internal Medicine
DX: Z13.9 Encounter for screening, unspecified (principal); R31.29 Other microscopic hematuria

== ENCOUNTER → 2025-04-28 13:10 | Outpatient (BNVA) | payer MEDICARE, OTHER, SELFPAY | PROVIDERS: PCP Internal Medicine; Visit Provider Internal Medicine | DX: R31.29 Other microscopic hematuria (principal); R35.0 Frequency of micturition | CPT/HCPCS: 81003; 99212 ==

== ENCOUNTER → 2025-04-29 10:12 | Outpatient (REF) | payer MEDICARE, OTHER, SELFPAY ==
--- NOTE | ~2025-04-29 | NM_ITS ---
Lexiscan Myocardial perfusion study Indication: Abnormal EKG to evaluate for myocardial ischemia Technique: The patient was brought in for a Lexiscan perfusion study on 04/29/2025 and was injected 0.4 mg of Lexiscan intravenously. Within a minute of this injection 25 mCi of sestamibi was given intravenously. Images were obtained using the SPECT gamma camera interlaced with the gating device. Images were obtained in supine position. Resting perfusion study was performed on 05/01/2025. Patient was administered 25 mCi of sestamibi intravenously at rest. Images were then obtained in supine position. Images were processed with the software and compared side to side in short axis, horizontal long axis and vertical long axis views. Images obtained without without CT attenuation. Total DLP 67 mGy-cm. Findings: The stress perfusion study showed nonattenuated images show very focal moderately reduced uptake distal anterior wall of the LV myocardium. Attenuated corrected images show mildly reduced uptake.. The gated study shows normal LV systolic function with calculated LVEF of 73%. LV cavity is normal in size. The gated study shows normal systolic wall thickening and contraction of segments. Resting study shows both nonattenuated as well as attenuated corrected images show minimally improved uptake in the distal anterior wall of the LV myocardium.. Gating at rest reveals normal systolic wall motion with ejection fraction at 66%. The findings are consistent with findings suggestive of minimally reversible distal anterior wall defect which is likely artifactual. Unlikely that this represents any ischemia findings of a focal with only minimal improvement.. NM/NM cardiolite stress test Impression: 1. Myocardial perfusion imaging study shows likely normal myocardial 2. Gated LVEF is 66% 3. Transient ischemic dilatation not present Nondiagnostic changes on EKG. Electronically signed by: Erick Gibbs MD 05/01/2025 03:42 PM [facility] [place]
--- NOTE | 2025-04-29 10:13 | CA_ITS ---
Transthoracic Echocardiogram Patient (Last, First, Middle): Rosetta Khan, Gender: F Date of : 1935 Age: 89 Procedure Date: 04/29/2025 Procedure Type: Transthoracic Echocardiogram Location: OP Height: 160.02 cm Weight: 61.24 kg BSA: 1.64 m2 Heart Rate: bpm BP: 110 / 70 mmHg Medical Legal Investigator: TO Referring MD: Tsaha Rosas PA-C Rattan Worker: Erick Gibbs MD Symptoms: I25.10 - Atherosclerotic heart disease of [place] coronary artery without... Study Quality: Adequate ECG Rhythm: Sinus Conclusions: - 1. Normal LV ejection fraction with ejection fraction of 60-65% with pseudonormal filling pattern 2. Normal cardiac valvular Dopplers 3. Normal RVSP 4. No pericardial effusion Findings Left Ventricle Normal left ventricular size, thickness, and systolic function. The visually estimated ejection fraction is between 60-65%. Spectral Doppler is indicative of a pseudonormal filling pattern. There is mild septal asymmetric hypertrophy. Right Ventricle Normal right ventricular cavity size and systolic function. There is mildly increased right ventricular wall thickness. Atria The left atrium is likely dilated. Interatrial shunt cannot be excluded. The right atrium is normal in size. Aortic Valve Normal aortic valve structure and function. There is no aortic valve stenosis. There is no aortic valve regurgitation. Mitral Valve There is mild anterior and posterior mitral leaflet thickening. There is trace mitral valve regurgitation. There is no mitral valve stenosis. Pulmonic Valve The pulmonic valve is likely normal. Tricuspid Valve Normal tricuspid valve structure. There is trace tricuspid valve regurgitation. The right ventricular systolic pressure is normal. The right ventricular systolic pressure is 24 mmHg. Normal right atrial pressure. There is no evidence of pulmonary hypertension. Great Vessels The pulmonary artery was not well visualized. There is mild dilatation of the ascending aorta measuring 3.90 cm. Venous The inferior vena cava is normal in size and collapses greater than 50% with inspiration. Pericardium/Pleural There is no evidence of pericardial effusion. Prior Study Comparison No prior study available for comparison. Measurements 2D Linear Measurements IVSd: 1.25 0.6-0.9/0.6-1.0 cm LVIDd: 4.10 3.9-5.3/4.2-5.9 cm LVIDd Index: 2.50 2.4-3.2/2.2-3.1 cm/m2 LVIDs: 3.02 2.0-3.6 cm LVPWd: 0.92 0.7-1.1 cm LA Diam: 3.60 2.7-3.8/3.0-4.0 cm LAIDs Index: 2.20 1.5-2.3 cm/m2 LV Mass: 184.55 67-162/88-224 g LV Mass Index: 112.53 43-95/49-115 g/m2 LVOT Diam: 2.10 3.0+(-)1.3 cm 2D Systolic Function EF 4C: 64.20 >55% EF 2C: 61.30 >55% EF BiP: 62.50 >55% Mitral Valve MV Pk E: 0.85 MV PK A: 0.80 MV Decel Time: 208.00 E/A: 1.10 E'Lateral: 6.42 E'Medial: 3.59 E/E' Med: 23.80 E/E' Lat: 13.30 PHT: 61.00 MVA PHT: 3.61 Decel Coles: 4.09 Aortic Valve AoV Pk Farzad: 1.17 AoV Mn Farzad: 0.92 AoV VTI: 0.30 AoV Pk Grad: 5.00 Aov Mn Grad: 4.00 KHAI Cont.VTI: 2.88 LVOT LVOT Pk Farzad: 0.97 LVOT Mn Farzad: 0.64 LVOT VTI: 0.25 LVOT Pk Grad: 4.00 LVOT Mn Grad: 2.00 LVOT Diam: 2.10 LVOT Area: 3.46 Diastolic Function MV Pk E: 0.85 MV Pk A: 0.80 E/A: 1.10 E'Medial: 3.59 E/E' Med: 23.80 E' Laterial: 6.42 E/E' Lat: 13.30 Right Ventricle TAPSE (mm): 24.70 TVS' Farzad: 12.70 Tricuspid Valve TR Pk Farzad: 2.31 TR Pk Grad: 21.00 RA Press: 3.00 RVSP: 24.00 Great Vessels Aorta Sinus of Valsalva: 4.04 2.0-3.5 cm Ao Asc: 3.90 2.1-3.4 cm Updated in Other Vendor System with Status of Final Erick Gibbs MD electronically signed on 04/29/2025 3:56:25 PM with status of Final
--- NOTE | 2025-04-29 10:13 | CA_ITS ---
Acquisition Time: 2025-04-29 10:24:28 Total Exercise Time: 00:02:00 Test Indications: CP ELEVATED TROPONIN LBBB Medications: SEE H&P Protocol: LEXISCAN Max HR: 82 BPM 62% of Pred: 132 BPM Max BP: 122/64 mmHG Max Work Load: 1.0 METS Pharmacological stress test with Lexiscan while pt simgs her legs in chair, with reports of SOB and headpressure, without any arrythmias, with normotensive response to injection. Nondiagnostic EKG for ischemia. In recovery, pt treated with IVP Aminophylline 75 mg to reverse Lexiscan after whichj pt feeling back to baseline. Nuclear images pending. Test reviewed with Dr. Gibbs. Referred By: Tasha Rosas Electronically Signed By: Edilson Esquivel
== END ==
LOC: HO.CARD 10:12
PROVIDERS: PCP Internal Medicine; Visit Provider Physician Assistant Medical
DX: I25.10 Atherosclerotic heart disease of native coronary artery without angina pectoris (principal); I51.89 Other ill-defined heart diseases; R06.09 Other forms of dyspnea; R07.9 Chest pain, unspecified; I44.7 Left bundle-branch block, unspecified; R07.1 Chest pain on breathing
CPT/HCPCS: 78452; 93017; 93306; A9500; J0280; J2785

== ENCOUNTER → 2025-04-29 10:13 | Outpatient (BNV) | payer MEDICARE, OTHER, SELFPAY | PROVIDERS: PCP Internal Medicine | DX: I25.10 Atherosclerotic heart disease of native coronary artery without angina pectoris (principal); R06.02 Shortness of breath | CPT/HCPCS: 93016; 93018; 93320; 93350 ==